=== PATIENT | male | born 1950 | race Caucasian/White ===

== ENCOUNTER 2016-11-13 13:16 | Inpatient (IN) | payer MEDICARE, OTHER ==
[~2016-11-13] VITALS: Ht 175.3 cm; Wt 83.1 kg
--- NOTE | ~2016-11-13 | CON ---
[place], [place] REPORT OF CONSULTATION [facility]: [facility] TRAN [facility] [id number] UNIT #: [id number] ROOM: 415 DOCTOR: TIAN MosquedaMINNIE BIRTHDATE: [birth year] DOS: 11/14/2016 WOUND CARE CONSULT CHIEF COMPLAINT: Bilateral leg ulcerations. HISTORY OF PRESENT ILLNESS: This is a 66-year-old male who presented to the Emergency Room Department yesterday with complaints of open leg wounds that he has had for several years now. They do heal at times, but reopen fairly quickly. He came in with complaints of having also noted to have maggots in one of the wounds. He had mentioned this to one of his friends who cleanse the wound with hydrogen peroxide prior to him coming to the ER. He had complained of increased amount of the wounds in the Emergency Room Department, some redness, some warmth and pain, especially over one of the wounds on the left ankle. The medical charts indicate that he has seen or been seen by the wound clinic at the [facility], but when I specifically asked the patient, he does not tell me of any type of wound care that has been done for these wounds. He said he will occasionally get an antibiotic by one of his doctors at the [facility], but he has never dressed the wounds or taking care of them or covered them with anything that he is aware of. The patient was admitted for these leg wounds and was admitted for cellulitis. PAST MEDICAL HISTORY: Significant for the following: Bladder tumor, diabetes mellitus, hypertension, history of MRSA, neuropathy, nonhealing and nonsurgical wound, schizophrenia, and tremor. PAST SURGICAL HISTORY: He is status post cystoscopy for bladder tumor resection; orchiectomy, unilateral; history of iliac artery stents; history of hand surgery. SOCIAL HISTORY: He denies any alcohol consumption. Denies any drug use. He is a smoker. He says he smoked for half a pack a day for several years now. ALLERGIES: No known drug allergies. FAMILY HISTORY: Significant for COPD in his father and COPD in his mother and a history of cancer in his father and mother. MEDICATIONS: The current medications that he has are as follows: Lovenox 40 subQ daily, Restoril 15 mg p.o. at bedtime p.r.n., Zofran 4 mg IV q.6h. p.r.n., morphine 2 mg IV q.4h. p.r.n., milk of mag 30 mL p.o. daily, Dulcolax 5 mg p.o. daily, [place] one tablet q.4 p.r.n., Tylenol 650 q.4 p.r.n. REVIEW OF SYSTEMS: In general, he denies any fevers or chills. Currently, he has some discomfort with the left leg wound, but the other wounds are not painful. He denies any weight loss or weight gain. He says his appetite is good. He denies any nausea or vomiting or diarrhea at the present time. He says he does not really know how his sugars are running as he has not checked it in a while. He does complain of an occasional wheeze. His other review of systems for HEENT, cardiovascular, respiratory, abdominal, [place], [place] REPORT OF CONSULTATION NAME: NORMAN TRAN UNIT #: [id number] ROOM: 415 DOCTOR: MINNIE OVERTON M.D. BIRTHDATE: [birth year] , neurologic, psychiatric, and endocrine are otherwise negative or per the patient's report at this time. PHYSICAL EXAMINATION: VITAL SIGNS: As follows: His temperature is 98.1, pulse is 71, respirations 18, blood pressure is 118/54. GENERAL: This is a male who appears older than his stated age. He has obvious tremors of his upper extremities noted. He does have somewhat of a flat affect. He is pleasant and cooperative to examination. EENT: Oropharynx is clear. Extraocular movements are intact. NECK: Supple. There is no JVD. LUNGS: Have an occasional mild expiratory wheeze bilaterally. CARDIOVASCULAR: S1, S2, regular rate and rhythm. Soft systolic murmur appreciable. ABDOMEN: Soft and nontender. EXTREMITIES: He has no calf tenderness. He has marked hyperkeratosis and scaly lesions over his lower extremities below the knees. He has some mild erythema of bilateral lower extremities, which appears chronic. In my opinion, it is not acutely warm at this time and does not appear to be acutely tender. He has several open areas, one is on the left medial ankle above the malleolus. It is measuring 3.2 x 3 x 0.1 in depth. He has some visible necrotic tissue around the periwound. It is not purulent at this time. For the right leg, he has got two lesions that are open, one is measuring 1.9 x 1 x 0.1 and the other distal one is measuring 1 x 0.9 x 0.1 in depth. There is diffuse onychomycosis. There is somewhat of an odor present to his legs. When examining them, I do not see any maggots at this time. He said the maggots were present on the left leg wound. His pedal pulses are strong and palpable. He has got good capillary refill. LABORATORY DATA: His white count from admission was 9.1, it is down to 8.8. His hemoglobin is 12.6, hematocrit is 38.1. He has increased MCV, MCH. Platelets are 178. His chem-7 shows a BUN of 10, a creatinine of 0.76, sodium of 145, potassium 3.9, chloride 108, hemoglobin A1c is 5.8. LFTs are normal. Albumin is low at 3. Vitamin D is low. He did have a wound culture done yesterday, which is pending. Blood cultures are negative so far. As there was a fair amount of necrotic tissue and a slight odor to the legs, I washed the legs with soap and water. A lot of this scaling hyperkeratotic areas just came off on their on, but I did recommend debridement for the two wounds on the right leg as well as the wound on the left leg. The patient agreed. We did go over possible risks, which include bleeding, infection, and pain. The patient did consent to debridement. The areas was cleansed. Cetacaine spray was used for topical anesthesia. A timeout was conducted prior to the start of the procedure and the first debridement was on the left lower leg wound. The tissue removed was fibrin, slough, non-necrotic tissue only. There was no bleeding. The patient tolerated the debridement well. The instruments used were curette, forceps, and scissors. Cetacaine spray was used for topical anesthesia. The entire area was debrided. The post-debridement measurements of the left leg are 4.7 x 4.8 x 0.1. For the right leg wounds, both of these wounds were debrided. The instrument used was a curette. The patient tolerated the debridement well. There was minimal bleeding that was controlled with pressure. Cetacaine spray [place], [place] REPORT OF CONSULTATION NAME: NORMAN TRAN UNIT #: [id number] ROOM: 415 DOCTOR: MINNIE OVERTON M.D. BIRTHDATE: [birth year] was used for topical anesthesia. The post-debridement measurements for the proximal wound are 1.9 x 1.6 x 0.1. So, it was a little bit wider. The post-debridement measurements for the distal wound are 1 x 1 x 0.2. There was a little bit of depth to it. This area went a little bit deeper into the subcutaneous tissue and there was some slight purulence noted with this wound. Post-debridement culture was obtained of this wound. ASSESSMENT AND PLAN: Multiple leg ulcers in a patient likely with venous insufficiency. I will go ahead and order venous and arterial Dopplers today. We will go ahead and use honey for the wounds, Versatel and 4 x 4s and Hussein and have them changed it on a daily basis. His legs need to be washed with warm soapy water everyday. This patient does have a history of iliac stent. However, he is a very poor historian when trying to elicit it if there are any symptoms of claudication, he denied those; however, he is a smoker, so we need to make sure we get arterial studies done. I think these wounds will heal with consistent wound care. Unfortunately, the patient did not appear to be taking good care of himself as far as and no care for his wounds. We were concerned that if there was a report of maggots per the patient's report, although I did not see any. I would recommend a Social Service consult and to see if what can be done to help him in his situation. He says he is able to cook for himself. He was given one dose of Zosyn. It looks like in the Emergency Room Department that has been held. Infectious Disease consult is being requested. Antibiotics are on hold in the meantime. I would recommend outpatient wound care if the patient is willing to come on a weekly basis. MINNIE OVERTON MD CM:CONSTR:REPORT OF CONSULTATION [id number] 11/15/16 0401 interface
[~2016-11-13 13:16] MED LIST: ALBUTEROL0.09 MG/A2 INH; AMLODIPINE BESYL5 MG PO; AMLODIPINE10 MG PO; AMOXICILLIN500 MG PO; ASPIRIN81 M1 PO; BENADRYL25 M1 PO; CRESTOR5 MG PO; DOXYCYCLINE100 M3 PO; ENALAPRIL10 MG PO; FISH OIL 10001000 MG PO; GABAPENTIN300 MG PO; GLIPIZIDE10 MG PO; HUMULIN N100 U/ML SC; HYDR12.5C PO; HYDROCHLOROTH12.5 M1; HYDROCODONE BIT1 T11 PO; KEFLEX500 MG PO; LEVOFLOXACIN500 MG PO; LOPID600 MG PO; METFORMIN500 MG PO; METOPROLOL SR25 MG PO; MOTRIN600 MG PO; MOTRIN800 MG PO; NOVOLIN N100 U/ML SC; OMEPRAZOLE20 MG PO; PERPHENAZINE4 MG PO; PRAVACHOL40 MG PO; PRIMATENE 12.51 TAB PO; VICODIN ES 7501 TAB PO; ZYVOX600 MG PO
[2016-11-13 13:21] VITALS: BP 144/84
[2016-11-13 14:14] LABS: BASO # 0.1 10*3/uL (0.0-0.1); BASO % 0.7 % (0.0-1.0); EOS # 0.2 10*3/uL (0.0-0.4); EOS % 2.3 % (1.0-4.0); HEMATOCRIT 39.7 % (42.0-52.0); HEMOGLOBIN 13.3 g/dl (14.0-18.0); LYMPH # 1.9 10*3/uL (1.3-4.4); LYMPH % 21.3 % (27.0-41.0); MEAN CELL VOLUME 94.5 fl (80.0-94.0); MEAN CORPUSCULAR HGB 31.7 pg (27.0-31.0); MEAN CORPUSCULAR HGB CONC 33.5 g/dl (33.0-37.0); MEAN PLATELET VOLUME 12.7 fl (9.6-12.3); MONO # 0.8 10*3/uL (0.1-1.0); MONO % 8.9 % (3.0-9.0); NEUT % 66.4 % (47.0-73.0); PLATELET COUNT AUTOMATED 172 10*3/uL (130-400); RED CELL DISTRI WIDTH 13.7 % (0-14.5); WHITE BLOOD COUNT 9.1 10*3/uL (4.8-10.8)
[2016-11-13 14:29] LABS: ALBUMIN 3.6 gm/dl (3.1-4.5); BILIRUBIN, TOTAL 0.3 mg/dl (0.2-1.0); BUN 13 mg/dl (7-24); CARBON DIOXIDE 27 mmol/L (21-32); CHLORIDE 107 mmol/L (98-107); EST GLOM FILT AFRICAN AMERICAN > 60 ml/min; GLUCOSE 134 mg/dL (65-99); SGOT/AST 22 IU/L (3-35); SGPT/ALT 17 U/L (12-78); SODIUM 143 mmol/L (136-145); TOTAL PROTEIN 8.3 gm/dL (6.4-8.2)
[2016-11-13 14:30] LABS: ALKALINE PHOSPHATASE 142 U/L (45-117)
[2016-11-13 15:07] VITALS: BP 126/76
[2016-11-13 17:00] VITALS: BP 123/69
[2016-11-13 17:09] LABS: BILIRUBIN NEGATIVE (NEGATIVE); BLOOD NEGATIVE (NEGATIVE); CLARITY SL CLOUDY (CLEAR); COLOR YELLOW (YELLOW); GLUCOSE NEGATIVE (NEGATIVE); KETONE NEGATIVE (NEGATIVE); LEUKO ESTERASE TRACE (NEGATIVE); NITRITE NEGATIVE (NEGATIVE); PROTEIN TRACE (NEGATIVE); UROBILINOGEN 0.2 E.U./dl (0.2-1.0)
[2016-11-13 17:40] LABS: RBC 0-2 rbc/hpf (0-2); URINE REFLEX COMMENT YES (NO)
[2016-11-13 20:00] VITALS: BP 117/58
[2016-11-14] VITALS: BP 129/60
[2016-11-14 06:24] LABS: BASO % 0.5 % (0.0-1.0); EOS # 0.2 10*3/uL (0.0-0.4); EOS % 2.7 % (1.0-4.0); HEMATOCRIT 38.1 % (42.0-52.0); HEMOGLOBIN 12.6 g/dl (14.0-18.0); LYMPH # 2.3 10*3/uL (1.3-4.4); LYMPH % 25.7 % (27.0-41.0); MEAN CELL VOLUME 95.7 fl (80.0-94.0); MEAN CORPUSCULAR HGB 31.7 pg (27.0-31.0); MEAN CORPUSCULAR HGB CONC 33.1 g/dl (33.0-37.0); MEAN PLATELET VOLUME 12.6 fl (9.6-12.3); MONO % 10.7 % (3.0-9.0); NEUT # 5.3 10*3/uL (2.3-7.9); NEUT % 60.1 % (47.0-73.0); PLATELET COUNT AUTOMATED 178 10*3/uL (130-400); RED BLOOD COUNT 3.98 10*6/uL (4.50-5.90); RED CELL DISTRI WIDTH 13.9 % (0-14.5); WHITE BLOOD COUNT 8.8 10*3/uL (4.8-10.8)
[2016-11-14 06:56] LABS: PROTHROMBIN TIME 10.7 SECONDS (9.0-12.4)
[2016-11-14 07:07] LABS: BUN 10 mg/dl (7-24); CARBON DIOXIDE 27 mmol/L (21-32); CHLORIDE 108 mmol/L (98-107); EST GLOM FILT AFRICAN AMERICAN > 60 ml/min; GLUCOSE 85 mg/dL (65-99); MAGNESIUM 2.2 mg/dL (1.5-2.1); POTASSIUM 3.9 mmol/L (3.5-5.1); SGOT/AST 15 IU/L (3-35); SGPT/ALT 14 U/L (12-78); SODIUM 145 mmol/L (136-145)
[2016-11-14 07:10] LABS: ALKALINE PHOSPHATASE 85 U/L (45-117); BILIRUBIN, TOTAL 0.4 mg/dl (0.2-1.0); CHOLESTEROL 148 mg/dL (<200); HDL CHOLESTEROL 37 mg/dl (40-60); LDL CHOLESTEROL 84 mg/dL (9-159); PHOSPHOROUS 3.4 mg/dL (2.5-4.9); TOTAL PROTEIN 6.9 gm/dL (6.4-8.2); TRIGLYCERIDES 136 mg/dl (<150); VLDL CHOLESTEROL 27 mg/dL (6-40)
[2016-11-14 07:26] LABS: HEMOGLOBIN A1c 5.8 % (4.8-5.6)
[2016-11-14 08:00] VITALS: BP 118/54
[2016-11-14 09:16] LABS: FOLIC ACID 11.01 ng/mL (>5.38); VITAMIN D, 25-HYDROXY 16.3 ng/mL (30-100)
[2016-11-14 12:00] VITALS: BP 123/61
[2016-11-14 16:00] VITALS: BP 133/73
[2016-11-14] MEDS ORDERED: DEPAKOTE ER500 MG PO (16:58)
[2016-11-14] MEDS ORDERED: LATANOPROST 2.2.5 ML OP (16:59)
[2016-11-14] MEDS ORDERED: ATORVASTATIN CA20 M1 PO (17:01)
[2016-11-14] MEDS ORDERED: ARIPIPRAZOLE30 MG PO (17:03)
[2016-11-14] MEDS ORDERED: PROPRANOLOL HCL20 M1 PO (17:06)
[2016-11-14] MEDS ORDERED: Aquaphor T (17:41)
[2016-11-14] MEDS ORDERED: ATHLETE'S FOOT15 GM T (17:41)
[2016-11-14] MEDS ORDERED: LAMISIL250 MG PO (17:41)
[2016-11-14] MEDS ORDERED: VITAMIN D5000 UNI1 PO (17:44)
== END 2016-11-14 19:28 | disposition home or self-care (01) | DRG 623 ==
LOC: ED 13:16 → EDHOLD 14:57 → 4E 14:57
PROVIDERS: Internal Medicine; Nurse Practitioner Family
PROC: 0HBKXZZ Excision of Right Lower Leg Skin, External Approach (ICD-10-PCS; principal; 2016-11-14)
PROC: 0HBLXZZ Excision of Left Lower Leg Skin, External Approach (ICD-10-PCS; principal; 2016-11-14)
DX: E11.622 Type 2 diabetes mellitus with other skin ulcer (principal); L97.219 Non-pressure chronic ulcer of right calf with unspecified severity; L97.229 Non-pressure chronic ulcer of left calf with unspecified severity; E11.40 Type 2 diabetes mellitus with diabetic neuropathy, unspecified; D53.9 Nutritional anemia, unspecified; I10 Essential (primary) hypertension; B35.1 Tinea unguium; F20.9 Schizophrenia, unspecified; R25.1 Tremor, unspecified; I87.8 Other specified disorders of veins; F17.210 Nicotine dependence, cigarettes, uncomplicated; I87.2 Venous insufficiency (chronic) (peripheral); B35.3 Tinea pedis; E55.9 Vitamin D deficiency, unspecified; Z71.6 Tobacco abuse counseling; Z86.14 Personal history of Methicillin resistant Staphylococcus aureus infection; Z83.6 Family history of other diseases of the respiratory system; Z80.9 Family history of malignant neoplasm, unspecified; Z79.82 Long term (current) use of aspirin; Z79.4 Long term (current) use of insulin; Z79.84 Long term (current) use of oral hypoglycemic drugs; Z79.899 Other long term (current) drug therapy

== ENCOUNTER → 2016-12-22 | Outpatient (CLI) | payer MEDICARE, OTHER ==
[~2016-12-22] MED LIST changes: +ARIPIPRAZOLE30 MG PO; +ATHLETE'S FOOT15 GM T; +ATORVASTATIN CA20 M1 PO; +Aquaphor T; +DEPAKOTE ER500 MG PO; +LAMISIL250 MG PO; +LATANOPROST 2.2.5 ML OP; +PROPRANOLOL HCL20 M1 PO; +VITAMIN D5000 UNI1 PO
--- NOTE | ~2016-12-22 | WRIGHTHP ---
[place], [place] PATIENT HISTORY AND PHYSICAL EXAM NAME: NORMAN TRAN [facility] #: [id number] UNIT #: [id number] ROOM: DOCTOR: MINNIE OVERTON M.D. BIRTHDATE: [birth year] DOS: 12/22/2016 ADDENDUM Back in November I wanted to add the recent lab work that was done for this patient back in November showed shows a white count of 8, a hemoglobin of 12.6, hematocrit of 38.1 and platelets of 178. His BUN was 10, creatinine was 0.7 and potassium 3.6. His glucose was 85. His hemoglobin A1c was 5.8. LFTs were normal. His albumin was slightly low at 3. Cholesterol was 148. He had venous studies, which were negative and arterial studies, which shows no significant inflow or femoral disease, mild diffuse atherosclerotic distal disease on the left, but occlusive disease. So, I want to add that data in. MINNIE OVERTON MD CM:HISPHYS:PATIENT HISTORY AND PHYSICAL EXAMINATION [id number] MINNIE OVERTON M.D. 12/23/16 1006 interface
--- NOTE | ~2016-12-22 | WRIGHTHP ---
[place], [place] PATIENT HISTORY AND PHYSICAL EXAM NAME: NORMAN TRAN [facility] #: [id number] UNIT #: [id number] ROOM: DOCTOR: MINNIE OVERTON M.D. BIRTHDATE: [birth year] DOS: 12/22/2016 This is a new wound care evaluation, although I have seen the patient before on the floor as in consultation. CHIEF COMPLAINT: Bilateral chronic leg ulcerations. HISTORY OF PRESENT ILLNESS: This is a 66-year-old male who was referred to us by the [facility] for wound care. He has a history of chronic leg wounds that apparently he has had for quite some time and he has told me years now, that have healed, but then quickly reopened. He has had problems with maggot infestation as well and was admitted to the hospital back in November for this above problem and cellulitis as well during that time. He did have an Unna boot placed by [facility], they did that for a week and apparently according to the patient, it was much improved. However, he still has some open ulcers and [facility] for further care. PAST MEDICAL HISTORY: Significant for the following; bladder tumor, diabetes mellitus, hypertension, history of MRSA infection, neuropathy, nonhealing and nonsurgical wounds, schizophrenia and chronic tremor. He also has a history of hyperlipidemia, COPD, history of AAA as well as history of cellulitis. He also has a history of multiple pulmonary nodules, chronic obstructive lung disease, drug induced tremor, cellulitis of the hand, cellulitis and abscess of the leg. PAST SURGICAL HISTORY: He is status post cystectomy for bladder tumor resection; orchiectomy, unilateral, history of iliac artery stents; and history of hand surgery. SOCIAL HISTORY: He denies alcohol consumption. Denies drug use. He is a smoker and continues to smoke. He tried to quit in the past, but it did not work. He smokes half a pack per day now for several years. Does not wish to try to quit smoking. ALLERGIES: No known drug allergies. FAMILY HISTORY: Significant for COPD in his father, COPD in his mother and a history of cancer in the family in his mother and father. MEDICATIONS: Depakote 500 mg daily at bedtime, diphenhydramine 25 mg p.r.n., metformin 500 daily, enalapril 10 mg p.o. b.i.d., aripiprazole 30 mg daily, albuterol inhalation 90 mcg daily, amlodipine 10 mg daily, budesonide inhalation 2 puffs by mouth b.i.d. REVIEW OF SYSTEMS: As follows: He denies any fevers or chills. He does admit to some shortness of breath on exertion. It has not changed in anyway. He has a history of cramping in his legs at times, it is not new. He gets rare chest pain that he describes as sharp and he had an episode last night that lasted for about an hour with no radiation and he feels that it was related to indigestion. He gets acid reflux. Currently, he has no nausea or vomiting. He denies any [place], [place] PATIENT HISTORY AND PHYSICAL EXAM NAME: NORMAN TRAN UNIT #: [id number] ROOM: DOCTOR: MINNIE OVERTON M.D. BIRTHDATE: [birth year] shortness of breath at the present time, does get occasional wheezing. He says he is eating well, but he was brought in by his housemate who helps him and has come in with him today and she says that he does not eat well. He does not eat 3 meals a day and eats a lot sugar. He has a sweet tooth. He does not check his sugar. The patient states his strips are not working and his readings are not clear, so he does not know what his sugar is or has been running. He said when he had this episode of chest pain yesterday, he did not inform anyone and it eventually resolved. He has no specific complaints regarding his wounds at the present time. He does state that the Unna boot seem to have really have helped. He still has a lot of dry skin, but it is definitely better than it was the last time I saw him back in November. PHYSICAL EXAMINATION: VITAL SIGNS: Stable. Temperature is 98.1, pulse of 64, respirations 18, blood pressure is 130/66. GENERAL: This is a male who appears older than his stated age, slightly disheveled, poor hygiene, in no acute distress. He is pleasant and cooperative to examination, there is an obvious tremor noted. HEENT: Extraocular movements are intact. Sclerae are anicteric. Oropharynx is clear. NECK: There is no JVD. LUNGS: Have occasional rhonchi and some mild wheezing, but good inspiratory and expiratory effort. CARDIOVASCULAR: S1, S2, regular rate and rhythm. I do not appreciate a murmur. ABDOMEN: Soft and nontender. EXTREMITIES: He has edema bilaterally. There is chronic erythema. There is no calf tenderness. His pulses are palpable. He has severe onychomycosis. He has some maceration noted at the bottom in the area between his toes. He has large amounts of hyperkeratosis on his legs. He has good peripheral pulses. His toes are warm. His pulses are strong and capillary refill is normal. His EUNICE is 1.26 on the left and 1.25 on the right. For his foot assessment, he has positive sensation. There are very few areas where it is negative, but most of it seems to be positive. So, he has several open areas that are being measured, 6 different ones. Wound #1, is located on the proximal right lower leg, it is measuring 1.2 x 0.5 x 0.1. Wound #2 is measuring 1.5 x 2 x 0.1. Wound #3 is very small at 0.5 x 0.5 x 0.1. Wound #4 is measuring 0.5 x 0.5 x 0.1 and those on the left leg wound. Wound #5 is measuring 0.5 x 0.3 x 0.1 and that is on the left lower leg. Wound #6 is 0.6 x 1 x 0.1 and that is on the right anterior leg. Several of these wounds are in various stages of healing. There are two wounds on the right lower extremity that have some necrotic tissue and those were debrided selectively only. The tissue removed was just fibrin and slough and dried hyperkeratosis. The instrument used was a curette, forceps, and scissors, this was wound #1, and the post-debridement measurements are 0.7 x 0.6 x 0.1. Then, the wound on the right medial lower leg was debrided as well and the post-debridement measurements are unchanged. Wound #4, which is on the left proximal lateral lower leg was debrided and post-debridement measurements are 0.5 x 0.8 x 0.1, though these were selectively debrided as well and wound #6 was debrided, the right anterior lower leg wound. Post-debridement measurement was 0.6 x 1 x 0.1. [place], [place] PATIENT HISTORY AND PHYSICAL EXAM NAME: NORMAN TRAN [facility] #: [id number] UNIT #: [id number] ROOM: DOCTOR: MINNIE OVERTON M.D. BIRTHDATE: [birth year] ASSESSMENT AND PLAN: Chronic venous leg ulcerations complicated by diabetes. I did see a hemoglobin A1c being listed around 6. He apparently also was on a recent steroid taper I believe for, it is not clear to me the reasoning, however, there were reports of wheezing at the clinic, so he apparently had recently been on steroids as well and that also will affect wound healing. He has poorly controlled edema, but did respond well to Unna boots according to the patient. It looks like he was also given a script for Keflex 500 four times a day for 10 days, although currently the legs do not appear acutely cellulitic, no sign of an acute infection, so we will go ahead and use collagen for now and we will apply the Unna boots and have him follow back up in one week. He also has evidence of tinea pedis and I would like him to use Lotrimin powder to the area in between the toes. His vascular status appears to be adequate at this point, he has got good ABIs and his pulses are strong. He also does smoke, which will also contribute to poor wound healing. He will need compression stockings. So next week, hopefully, we can measure his legs. I think he will respond quickly to the compression. He unfortunately does not check his sugars. He said there is something wrong with his meter. [facility], to either contact the [facility] to see if he can get another one or have somebody help him to show him how to use it or he can go to the pharmacy that he purchased the instrument from and to have somebody help him go over it to see why it is malfunctioning. He should take his blood sugar and check it to see where he is at. I did discuss with him about his chest pain that if he gets it again, he should go to the Emergency Room for an evaluation as he has risk factors for coronary disease that include diabetes and smoking, hyperlipidemia and hypertension, so this was explained to the patient. Followup in 1 week. MINNIE OVERTON MD CM:HISPHYS:PATIENT HISTORY AND PHYSICAL EXAMINATION [id number] MINNIE OVERTON M.D. 12/22/16 1715 interface
== END ==
LOC: WOUNDCARE 01:59
DX: I87.333 Chronic venous hypertension (idiopathic) with ulcer and inflammation of bilateral lower extremity (principal); E11.622 Type 2 diabetes mellitus with other skin ulcer; L97.811 Non-pressure chronic ulcer of other part of right lower leg limited to breakdown of skin; L97.821 Non-pressure chronic ulcer of other part of left lower leg limited to breakdown of skin; E11.40 Type 2 diabetes mellitus with diabetic neuropathy, unspecified; E78.5 Hyperlipidemia, unspecified; J44.9 Chronic obstructive pulmonary disease, unspecified; F17.210 Nicotine dependence, cigarettes, uncomplicated; Z86.14 Personal history of Methicillin resistant Staphylococcus aureus infection

== ENCOUNTER → 2016-12-29 | Outpatient (CLI) | payer MEDICARE, OTHER ==
--- NOTE | ~2016-12-29 | PR ---
[place], [place] PROGRESS NOTE NAME: NORMAN TRAN [facility] #: [id number] UNIT #: [id number] ROOM: DOCTOR: TIAN MosquedaMINNIE BIRTHDATE: [birth year] DOS: 12/29/2016 WOUND CARE FOLLOWUP NOTE CHIEF COMPLAINT: Bilateral chronic leg ulcerations. HISTORY OF PRESENT ILLNESS: This is a 66-year-old male who was referred to us by the [facility] for wound care. He had evidence of chronic venous stasis ulcerations that were multiple and complicated by diabetes. We had used Unna boots on him last week and he comes in for a followup. He had the Unna boots kept on for the entire week. He was noted to have evidence of tinea pedis on the bottom of his toes and in between his toes and was asked to use an antifungal powder, prescription was given for him for that; however, he states that he could not afford his medication, did not have any money to get the prescription and did not use it. Otherwise, he has no specific complaints. He tolerated the Unna boots very well, but did not have enough money to get the antifungal powder that was recommended. PHYSICAL EXAMINATION: He is afebrile, pulse of 76, respirations 18, temperature is 98.9, blood pressure is 120/76. Essentially, all the wounds on the right lower leg have some scabs over them. They are measuring 0.1 x 0.1 x 0.1 that is wound #1, 2 and 3. On the left lower leg, there is wound #4, 5 and 6 that are also measuring 0.1 x 0.1 x 0.1 and those were all debrided of devitalized tissue of this hyperkeratotic scabbed area and they all appeared to be maintained to be healed underneath them. Those were debrided selectively with forceps and scissors. There was no bleeding and the patient tolerated debridement well and all the wounds appear to be healed underneath his devitalized tissue. He does have one very small wound that is still open and that is on the proximal left leg, it is very small, approximately 0.2 x 0.2 x 0.1 and is very superficial and no sign of infection, it is clean. The edema is much better controlled and there is no obvious cellulitis; however, bottom of his feet is macerated, peeling, malodorous with maceration at the bottom of all his toes on left and right foot. There is no sign of cellulitis and it is not tender or painful. SOCIAL HISTORY: He continues to smoke and was brought in by his sister who drove him here, but he says he is able to drive. ASSESSMENT AND PLAN: His venous leg ulcerations, they are all healed. ____ one small wound that we can use Puracol for it and cover it with a dry gauze. He can change it every other day. He can use Tubigrip for edema control. He is supposed to get compression stockings through the [facility]; however, he does have severe tinea pedis. I explained to him that it really needs to be managed in taking care of. I would also ask him to wash with Hibiclens soap to see if we can decrease the bioburden in the area and ____ soap can be utilized also for antifungal purposes and he can also use the antifungal powder at least twice a day. I would like the patient to follow up with us next week or the [facility], whichever he is able to. If he can get appointment next week at the [facility], he can follow up with them. Otherwise, he should follow back up in our Wound Clinic. [place], [place] PROGRESS NOTE NAME: NORMAN TRAN UNIT #: [id number] ROOM: DOCTOR: MINNIE OVERTON M.D. BIRTHDATE: [birth year] MINNIE OVERTON MD CM:PNTRANS [id number] MINNIE OVERTON M.D. 12/29/16 1449 interface
== END ==
LOC: WOUNDCARE 02:25
DX: I87.2 Venous insufficiency (chronic) (peripheral) (principal); E11.622 Type 2 diabetes mellitus with other skin ulcer; L97.821 Non-pressure chronic ulcer of other part of left lower leg limited to breakdown of skin; L97.811 Non-pressure chronic ulcer of other part of right lower leg limited to breakdown of skin; B35.3 Tinea pedis; I48.91 Unspecified atrial fibrillation; F17.200 Nicotine dependence, unspecified, uncomplicated

== ENCOUNTER 2017-06-11 13:08 | Emergency (ER) | payer MEDICARE, OTHER ==
[~2017-06-11] VITALS: Wt 90.3 kg
[2017-06-11 13:32] LABS: BASO # 0.1 10*3/uL (0.0-0.1); BASO % 0.7 % (0.0-1.0); EOS # 0.2 10*3/uL (0.0-0.4); EOS % 1.2 % (1.0-4.0); HEMATOCRIT 45.1 % (42.0-52.0); HEMOGLOBIN 14.9 g/dl (14.0-18.0); LYMPH # 2.5 10*3/uL (1.3-4.4); LYMPH % 17.1 % (27.0-41.0); MEAN CELL VOLUME 95.8 fl (80.0-94.0); MEAN CORPUSCULAR HGB 31.6 pg (27.0-31.0); MEAN PLATELET VOLUME 11.6 fl (9.6-12.3); MONO # 0.9 10*3/uL (0.1-1.0); MONO % 6.5 % (3.0-9.0); NEUT # 10.7 10*3/uL (2.3-7.9); NEUT % 73.9 % (47.0-73.0); PLATELET COUNT AUTOMATED 213 10*3/uL (130-400); RED BLOOD COUNT 4.71 10*6/uL (4.50-5.90); RED CELL DISTRI WIDTH 13.5 % (0-14.5); WHITE BLOOD COUNT 14.4 10*3/uL (4.8-10.8)
[2017-06-11 14:05] LABS: ALKALINE PHOSPHATASE 129 U/L (45-117); BUN 12 mg/dl (7-24); CHLORIDE 102 mmol/L (98-107); CREATININE 0.81 mg/dL (0.70-1.30); POTASSIUM 3.8 mmol/L (3.5-5.1); SGOT/AST 24 IU/L (3-35); SGPT/ALT 28 U/L (12-78); SODIUM 139 mmol/L (136-145); TOTAL PROTEIN 8.4 gm/dL (6.4-8.2)
[2017-06-11 15:08] VITALS: BP 147/79
[2017-06-11] MEDS ORDERED: KEFLEX500 M1 PO (16:30)
== END 2017-06-11 16:50 | disposition home or self-care (01) ==
LOC: ED 13:08
PROVIDERS: Emergency Medicine
DX: L03.116 Cellulitis of left lower limb (principal); L03.115 Cellulitis of right lower limb; I10 Essential (primary) hypertension; F20.9 Schizophrenia, unspecified; E11.40 Type 2 diabetes mellitus with diabetic neuropathy, unspecified; F10.10 Alcohol abuse, uncomplicated; Z79.84 Long term (current) use of oral hypoglycemic drugs; Z79.82 Long term (current) use of aspirin; Z79.899 Other long term (current) drug therapy

== ENCOUNTER 2017-08-25 22:41 | Emergency (ER) | payer OTHER, MEDICARE ==
[~2017-08-25] VITALS: Ht 182.8 cm; Wt 108.9 kg
[~2017-08-25 22:41] MED LIST changes: +KEFLEX500 M1 PO
[2017-08-25 23:09] VITALS: BP 143/61
[2017-08-25 23:20] LABS: BASO # 0.1 10*3/uL (0.0-0.1); BASO % 0.5 % (0.0-1.0); EOS # 0.3 10*3/uL (0.0-0.4); EOS % 2.4 % (1.0-4.0); HEMATOCRIT 37.1 % (42.0-52.0); HEMOGLOBIN 12.6 g/dl (14.0-18.0); LYMPH # 1.8 10*3/uL (1.3-4.4); LYMPH % 16.4 % (27.0-41.0); MEAN CELL VOLUME 94.2 fl (80.0-94.0); MONO # 0.9 10*3/uL (0.1-1.0); NEUT # 7.8 10*3/uL (2.3-7.9); NEUT % 72.1 % (47.0-73.0); PLATELET COUNT AUTOMATED 190 10*3/uL (130-400); RED BLOOD COUNT 3.94 10*6/uL (4.50-5.90); RED CELL DISTRI WIDTH 13.8 % (0-14.5); WHITE BLOOD COUNT 10.8 10*3/uL (4.8-10.8)
[2017-08-25 23:27] LABS: ACT PARTIAL THROMBO TIME 28.1 SECONDS (20.8-31.5)
[2017-08-25 23:44] LABS: ALBUMIN 3.1 gm/dl (3.1-4.5); ALKALINE PHOSPHATASE 122 U/L (45-117); BUN 13 mg/dl (7-24); CHLORIDE 109 mmol/L (98-107); CREATININE 0.95 mg/dL (0.70-1.30); SGOT/AST 17 IU/L (3-35); SGPT/ALT 17 U/L (12-78); SODIUM 144 mmol/L (136-145); TOTAL PROTEIN 7.1 gm/dL (6.4-8.2)
[2017-08-25 23:45] LABS: TROPONIN I < 0.015 ng/ml (<0.045)
[2017-08-25 23:52] LABS: BILIRUBIN NEGATIVE (NEGATIVE); BLOOD NEGATIVE (NEGATIVE); CLARITY SL CLOUDY (CLEAR); COLOR YELLOW (YELLOW); GLUCOSE NEGATIVE (NEGATIVE); KETONE TRACE (NEGATIVE); LEUKO ESTERASE NEGATIVE (NEGATIVE); NITRITE NEGATIVE (NEGATIVE); PH 6.5 (5.0-9.0); SPECIFIC GRAVITY 1.025 (1.005-1.030)
== END 2017-08-26 01:08 | disposition left against medical advice (07) ==
LOC: ED 22:41
PROVIDERS: Student in an Organized Health Care Education/Training Program
DX: S01.81XA Laceration without foreign body of other part of head, initial encounter (principal); S81.812A Laceration without foreign body, left lower leg, initial encounter; S81.811A Laceration without foreign body, right lower leg, initial encounter; S30.1XXA Contusion of abdominal wall, initial encounter; I71.4 Abdominal aortic aneurysm, without rupture; F17.200 Nicotine dependence, unspecified, uncomplicated; E11.622 Type 2 diabetes mellitus with other skin ulcer; L97.209 Non-pressure chronic ulcer of unspecified calf with unspecified severity; I10 Essential (primary) hypertension; G62.9 Polyneuropathy, unspecified; Z98.890 Other specified postprocedural states; Z90.89 Acquired absence of other organs; Z79.82 Long term (current) use of aspirin; Z79.899 Other long term (current) drug therapy; V49.88XA Car occupant (driver) (passenger) injured in other specified transport accidents, initial encounter; Y93.89 Activity, other specified; Y92.413 State road as the place of occurrence of the external cause; Y99.9 Unspecified external cause status

== ENCOUNTER 2017-12-24 11:46 | Inpatient (IN) | payer MEDICARE, OTHER ==
[~2017-12-24] VITALS: Ht 175.2 cm; Wt 90.0 kg
--- NOTE | ~2017-12-24 | PR ---
[place], [place] PROGRESS NOTE NAME: NORMAN TRAN UNIT #: [id number] ROOM: 401 DOCTOR: MARYCARMEN DAO,BRENDA BIRTHDATE: [birth year] DOS: 01/18/2018 I had a [id number] encounter with the patient and agree with the assessment and plan of the nurse practitioner, Altagracia Bradley and made the necessary changes. Lynda Conroy MD CM:PNTRANS [id number] [id number] BRENDA CONROY MD 01/19/18 0242 interface
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
--- NOTE | ~2017-12-24 | PR ---
[place], [place] PROGRESS NOTE NAME: NORMAN TRAN UNIT #: [id number] ROOM: 401 DOCTOR: MARYCARMEN DAO,BRENDA BIRTHDATE: [birth year] DOS: 12/26/2017 I had a [id number]-my-ebxm encounter with the patient and agree with the assessment and plan made by Altagracia Bradley, nurse practitioner and made the necessary changes in the report note. Lynda Conroy MD CM:PNTRANS [id number] BRENDA CONROY MD 01/25/18 1124 MEGHANA [email or web address].TM
--- NOTE | ~2017-12-24 | CON ---
[place], [place] REPORT OF CONSULTATION [id number] UNIT #: [id number] ROOM: 401 DOCTOR: DEBORA ELLIS DPM BIRTHDATE: [birth year] DOS: 12/28/2017 SUBJECTIVE: This patient is seen as consulted for diabetic foot care, care of elongated painful nails on both feet. The patient was admitted with cellulitis in both lower extremities. Dr. Galindo is taking care of him as he has been in the wound care center before. He states he has had chronic problems with his legs with swelling and dry skin. He denies any history of surgery on either foot. He has been diabetic for more than 10 years. PAST MEDICAL HISTORY: Includes a history of AAA, bilateral lower extremity cellulitis, diabetes mellitus, history of wounds on his legs, hypertension, macrocytic anemia, MRSA, neuropathy, schizophrenia, tobacco abuse, venous insufficiency. ALLERGIES: No known drug allergies. CURRENT MEDICATIONS: Include Lamisil cream, metformin, Kefzol, Glucotrol, Seroquel, Lipitor, vitamin D, Lopressor, hydrochlorothiazide, Lovenox, Vasotec, Cogentin, Abilify, Norvasc, Dulera, Neurontin, Inderal, Protonix, Humalog. PHYSICAL EXAMINATION: Upon lower extremity physical examination, DP pedal pulse is palpable. PT pedal pulses barely palpable. Chronic pigment changes are seen bilaterally with dependent edema. Small superficial open areas noted on both lower legs with some mild erythema and increased temperature. No signs of fluctuance or signs of abscess. He does have dry skin on the bottom of both feet but there are essentially no foot ulcerations. Mildly contracted digits are seen bilaterally. Nails 1 through 5 bilaterally are thick, elongated, brittle, dystrophic with subungual debris present. Hyperkeratotic lesion seen at the distal tip at the distal portion of the second toe on the right foot with no open wound. ASSESSMENT: Diabetes mellitus, chronic venous insufficiency with recent cellulitis, onychomycosis 1 through 5 bilaterally, peripheral arterial disease. PLAN: Consult is performed. Manual debridement of mycotic nails 1 through 5 bilaterally in length and thickness to the level of the nail bed to reduce hazards such as infection. Dr. Galindo is taking care of his legs and the wounds on his legs. Continue with proper diabetic foot care. I will see the patient back in 9 weeks for continued diabetic foot care or sooner if there is a problem. Thank you for the opportunity to take part in care of this patient. [place], [place] REPORT OF CONSULTATION NAME: ROBYNTOMNORMAN B UNIT #: [id number] ROOM: [facility] DOCTOR: DEBORA ELLIS DPM BIRTHDATE: [birth year] DEBORA ELLIS DPM CM:CONSTR:REPORT OF CONSULTATION 1201 12/29/17 0841 interface
--- NOTE | ~2017-12-24 | PR ---
[place], [place] PROGRESS NOTE NAME: NORMAN TRAN UNIT #: [id number] ROOM: 401 DOCTOR: MARYCARMEN DAO,BRENDA BIRTHDATE: [birth year] DOS: Attestation note to the progress note done on 12/24/2017. I had the [id number] encounter and agree with the assessment plan of the resident and made the necessary changes in the report note. Lynda Conroy MD CM:PNTRANS [id number] BRENDA CONROY MD 01/25/18 1125 MEGHANA ESTRADA [facility].TM
--- NOTE | ~2017-12-24 | PR ---
[place], [place] PROGRESS NOTE NAME: NORMAN TRAN UNIT #: [id number] ROOM: 401 DOCTOR: RALF MESA,OCTOBER BIRTHDATE: [birth year] DOS: SUBJECTIVE: The patient is a 67-year-old male being followed for bilateral lower extremity cellulitis. His MRSA screen is negative. Blood cultures are sterile. He is alert and oriented, states he feels that the erythema and discomfort of his lower extremities is a little better. Vancomycin trough today is 15.4. He has had no fevers. Denies any nausea, vomiting or diarrhea. No rash or itch. No cough or shortness of breath. LABORATORY DATA: No new labs today. Cultures as reviewed above. PHYSICAL EXAMINATION: VITAL SIGNS: Temperature 97.8, pulse 86, respirations 18, BP 138/64. GENERAL: A 67-year-old male in no acute distress. HEENT: Normocephalic, no thrush. LUNGS: Clear to auscultation bilaterally. Respirations even and unlabored. HEART: Regular rhythm. No murmur appreciated. ABDOMEN: Soft, nondistended. EXTREMITIES: With chronic edema and signs of venous stasis and hyperkeratotic changes of the skin bilateral lower extremities with erythema that extends to his knees, also appears to have fungal infection between the toes and has toenails that are up to an inch and a half to 2 inches long and few dried scabs but otherwise no open wounds. PLAN: Continue Ancef. Start Lamisil to bilateral feet between the toes. Consult Podiatry for nail care. He will probably benefit from urea cream to help her with the hyperkeratotic areas. Unna boots are planned in the future per Dr. Galindo. Case discussed with Dr. Holbrook. DOMENICO ARAMBULA CNP Lynda Holbrook MD CM:PNTRANS [phone] OCTOBER RALF MESA 12/27/17 1504 interface
--- NOTE | ~2017-12-24 | CON ---
[place], [place] REPORT OF CONSULTATION NAME: NORMAN TRAN UNIT #: [id number] ROOM: 401 [facility] B[facility]: [birth year] DOS: 12/26/2017 I had a [id number] encounter with the patient and agree with the assessment and plan made by Altagracia Bradley, nurse practitioner and made the necessary changes in the report note. Lynda Holbrook MD CM:CONSTR:REPORT OF CONSULTATION 1643 01/25/18 1119 interface
[2017-12-24 11:46] VITALS: BP 142/75
[~2017-12-24 11:46] MED LIST changes: +GLUCOPHAGE500 M1 PO; -METFORMIN500 MG PO
[2017-12-24 12:05] LABS: BASO # 0.1 10*3/uL (0.0-0.1); BASO % 0.6 % (0.0-1.0); EOS # 0.4 10*3/uL (0.0-0.4); EOS % 3.4 % (1.0-4.0); HEMATOCRIT 43.3 % (42.0-52.0); HEMOGLOBIN 14.2 g/dl (14.0-18.0); LYMPH # 2.3 10*3/uL (1.3-4.4); LYMPH % 22.5 % (27.0-41.0); MEAN CORPUSCULAR HGB 31.1 pg (27.0-31.0); MEAN CORPUSCULAR HGB CONC 32.8 g/dl (33.0-37.0); MEAN PLATELET VOLUME 12.1 fl (9.6-12.3); MONO # 0.8 10*3/uL (0.1-1.0); MONO % 8.3 % (3.0-9.0); NEUT # 6.6 10*3/uL (2.3-7.9); NEUT % 64.7 % (47.0-73.0); PLATELET COUNT AUTOMATED 202 10*3/uL (130-400); RED BLOOD COUNT 4.56 10*6/uL (4.50-5.90); RED CELL DISTRI WIDTH 13.7 % (0-14.5); WHITE BLOOD COUNT 10.2 10*3/uL (4.8-10.8)
[2017-12-24 12:14] LABS: ACT PARTIAL THROMBO TIME 28.6 SECONDS (20.8-31.5)
[2017-12-24 12:22] LABS: ALBUMIN 3.3 gm/dl (3.1-4.5); ALKALINE PHOSPHATASE 129 U/L (45-117); BUN 7 mg/dl (7-24); CHLORIDE 109 mmol/L (98-107); CREATININE 0.92 mg/dL (0.70-1.30); LIPASE 65 U/L (73-393); POTASSIUM 4.1 mmol/L (3.5-5.1); SGOT/AST 18 IU/L (3-35); SGPT/ALT 26 U/L (12-78); SODIUM 142 mmol/L (136-145); TOTAL PROTEIN 7.6 gm/dL (6.4-8.2)
[2017-12-24 12:25] LABS: TROPONIN I < 0.015 ng/ml (<0.045); VALPROIC ACID (DEPAKENE) < 3.0 ug/ml (50-100)
[2017-12-24 13:21] VITALS: BP 123/90
[2017-12-24] MEDS ORDERED: GLIPIZIDE10 M2 PO (14:07)
[2017-12-24] MEDS ORDERED: HYDROCHLOROTH12.5 M2 PO (14:08)
[2017-12-24] MEDS ORDERED: NEURONTIN300 MG PO (14:09)
[2017-12-24] MEDS ORDERED: CRESTOR5 MG PO (14:12)
[2017-12-24] MEDS ORDERED: OMEPRAZOLE MAGN20 MG PO (14:14)
[2017-12-24] MEDS ORDERED: LOPRESSOR25 MG PO (14:15)
[2017-12-24] MEDS ORDERED: Bactroban Oint22 GM T (14:17)
[2017-12-24 14:26] VITALS: BP 128/68
[2017-12-24] MEDS ORDERED: NORVASC5 MG PO (15:51)
[2017-12-24] MEDS ORDERED: BENZTROPINE ME0.5 MG PO (15:52)
[2017-12-24] MEDS ORDERED: FISH OIL CONC1000 M2 PO (15:54)
[2017-12-24] MEDS ORDERED: HUMULIN 70100 UNIT/1 SQ ×2 (15:56)
[2017-12-24 16:00] VITALS: BP 142/74
[2017-12-24] MEDS ORDERED: SYMB160 INH (16:01)
[2017-12-24] MEDS ORDERED: PROVENTIL HFA6.7 GM INH (16:02)
[2017-12-24] MEDS ORDERED: VITAMIN C500 M8 PO (16:03)
[2017-12-24] MEDS ORDERED: MULTIVITAMINS1 EAC5 PO (16:03)
[2017-12-24] MEDS ORDERED: QUETIAPINE FUM200 M3 PO (16:04)
[2017-12-24] MEDS ORDERED: PROPRANOLOL HCL40 M1 PO (16:05)
[2017-12-24 20:00] VITALS: BP 133/73
[2017-12-25] VITALS: BP 122/67
[2017-12-25 06:16] LABS: BASO # 0.1 10*3/uL (0.0-0.1); BASO % 0.5 % (0.0-1.0); EOS # 0.4 10*3/uL (0.0-0.4); EOS % 3.5 % (1.0-4.0); HEMATOCRIT 43.8 % (42.0-52.0); HEMOGLOBIN 14.3 g/dl (14.0-18.0); LYMPH # 2.7 10*3/uL (1.3-4.4); LYMPH % 22.6 % (27.0-41.0); MEAN CELL VOLUME 94.2 fl (80.0-94.0); MEAN CORPUSCULAR HGB 30.8 pg (27.0-31.0); MEAN CORPUSCULAR HGB CONC 32.6 g/dl (33.0-37.0); MONO # 1.1 10*3/uL (0.1-1.0); MONO % 9.4 % (3.0-9.0); NEUT # 7.5 10*3/uL (2.3-7.9); NEUT % 63.5 % (47.0-73.0); PLATELET COUNT AUTOMATED 188 10*3/uL (130-400); RED BLOOD COUNT 4.65 10*6/uL (4.50-5.90); RED CELL DISTRI WIDTH 13.6 % (0-14.5); WHITE BLOOD COUNT 11.8 10*3/uL (4.8-10.8)
[2017-12-25 06:43] LABS: ALBUMIN 3.3 gm/dl (3.1-4.5); ALKALINE PHOSPHATASE 121 U/L (45-117); BUN 8 mg/dl (7-24); CHLORIDE 107 mmol/L (98-107); CHOLESTEROL 178 mg/dL (<200); CREATININE 0.81 mg/dL (0.70-1.30); HDL CHOLESTEROL 33 mg/dl (40-60); LDL CHOLESTEROL 94 mg/dL (9-159); PHOSPHOROUS 3.2 mg/dL (2.5-4.9); SGOT/AST 23 IU/L (3-35); SGPT/ALT 25 U/L (12-78); SODIUM 141 mmol/L (136-145); TOTAL PROTEIN 7.4 gm/dL (6.4-8.2); TRIGLYCERIDES 255 mg/dl (<150); VANCOMYCIN TROUGH 11.7 ug/mL (10-20); VLDL CHOLESTEROL 51 mg/dL (6-40)
[2017-12-25 06:44] LABS: FREE T4 1.08 ng/dl (0.76-1.46)
[2017-12-25 07:50] LABS: VITAMIN D, 25-HYDROXY 7.3 ng/mL (30-100)
[2017-12-25 08:00] VITALS: BP 138/74
[2017-12-25 12:00] VITALS: BP 127/82
[2017-12-25 16:00] VITALS: BP 104/59
[2017-12-25 20:00] VITALS: BP 106/60
[2017-12-26] VITALS: BP 110/62; BP 145/81
[2017-12-26 08:00] VITALS: BP 143/69
[2017-12-26 12:00] VITALS: BP 142/82
[2017-12-26 16:00] VITALS: BP 127/60
[2017-12-26 20:00] VITALS: BP 120/60
[2017-12-27] VITALS: BP 140/60
[2017-12-27 08:00] VITALS: BP 146/73
[2017-12-27 12:00] VITALS: BP 138/64
[2017-12-27 16:00] VITALS: BP 118/68
[2017-12-27 20:00] VITALS: BP 127/60
[2017-12-28] VITALS: BP 124/63
[2017-12-28 06:43] LABS: BASO # 0.1 10*3/uL (0.0-0.1); BASO % 0.6 % (0.0-1.0); EOS # 0.3 10*3/uL (0.0-0.4); HEMATOCRIT 42.6 % (42.0-52.0); HEMOGLOBIN 13.7 g/dl (14.0-18.0); LYMPH # 2.1 10*3/uL (1.3-4.4); LYMPH % 20.6 % (27.0-41.0); MEAN CELL VOLUME 96.2 fl (80.0-94.0); MEAN CORPUSCULAR HGB 30.9 pg (27.0-31.0); MEAN CORPUSCULAR HGB CONC 32.2 g/dl (33.0-37.0); MEAN PLATELET VOLUME 12.4 fl (9.6-12.3); MONO # 0.9 10*3/uL (0.1-1.0); NEUT # 6.7 10*3/uL (2.3-7.9); NEUT % 66.3 % (47.0-73.0); PLATELET COUNT AUTOMATED 180 10*3/uL (130-400); RED BLOOD COUNT 4.43 10*6/uL (4.50-5.90); RED CELL DISTRI WIDTH 13.6 % (0-14.5)
[2017-12-28 07:08] LABS: BUN 15 mg/dl (7-24)
[2017-12-28 08:00] VITALS: BP 145/71
[2017-12-28 12:00] VITALS: BP 149/58
[2017-12-28 16:00] VITALS: BP 126/63
[2017-12-28 20:00] VITALS: BP 134/67
[2017-12-29] VITALS: BP 137/77
[2017-12-29 08:00] VITALS: BP 137/79
[2017-12-29 12:00] VITALS: BP 132/82
[2017-12-29] MEDS ORDERED: CEFDINIR300 MG PO (12:37)
[2017-12-29] MEDS ORDERED: TERBINAFINE250 MG PO (12:37)
[2017-12-29 16:00] VITALS: BP 127/61
[2017-12-29 20:00] VITALS: BP 130/96
[2017-12-30] VITALS: BP 134/67
[2017-12-30 08:00] VITALS: BP 139/65
[2017-12-30 12:00] VITALS: BP 117/71
[2017-12-30] MEDS ORDERED: Vitamin D PO (14:12)
[2017-12-30] MEDS ORDERED: METFORMIN HCL1000 M1 PO (14:12)
== END 2017-12-30 17:00 | disposition home health service (06) | DRG 603 ==
LOC: ED 11:46 → 4E 13:32 → EDHOLD 13:32 → 4E 14:05
PROVIDERS: Emergency Medicine; Internal Medicine; Registered Nurse
PROC: 2W1LX6Z Compression of Right Lower Extremity using Pressure Dressing (ICD-10-PCS; principal; 2017-12-29)
PROC: 2W1MX6Z Compression of Left Lower Extremity using Pressure Dressing (ICD-10-PCS; principal; 2017-12-29)
DX: L03.116 Cellulitis of left lower limb (principal); E87.2 Acidosis; E11.51 Type 2 diabetes mellitus with diabetic peripheral angiopathy without gangrene; E11.42 Type 2 diabetes mellitus with diabetic polyneuropathy; B35.1 Tinea unguium; E11.65 Type 2 diabetes mellitus with hyperglycemia; R00.1 Bradycardia, unspecified; E78.2 Mixed hyperlipidemia; E55.9 Vitamin D deficiency, unspecified; I87.2 Venous insufficiency (chronic) (peripheral); E66.3 Overweight; D53.9 Nutritional anemia, unspecified; F17.210 Nicotine dependence, cigarettes, uncomplicated; L03.115 Cellulitis of right lower limb; F20.9 Schizophrenia, unspecified; E87.8 Other disorders of electrolyte and fluid balance, not elsewhere classified; I10 Essential (primary) hypertension; Z79.82 Long term (current) use of aspirin; Z79.4 Long term (current) use of insulin; Z79.899 Other long term (current) drug therapy; Z86.14 Personal history of Methicillin resistant Staphylococcus aureus infection; Z90.49 Acquired absence of other specified parts of digestive tract; Z82.49 Family history of ischemic heart disease and other diseases of the circulatory system; Z82.5 Family history of asthma and other chronic lower respiratory diseases; Z91.14 Patient's other noncompliance with medication regimen; Z79.84 Long term (current) use of oral hypoglycemic drugs; Z71.6 Tobacco abuse counseling; Z80.1 Family history of malignant neoplasm of trachea, bronchus and lung; Z68.29 Body mass index [BMI] 29.0-29.9, adult

== ENCOUNTER → 2018-01-14 | Outpatient (CLI) | payer MEDICARE, OTHER ==
[~2018-01-14] MED LIST changes: +BENZTROPINE ME0.5 MG PO; +Bactroban Oint22 GM T; +CEFDINIR300 MG PO; +FISH OIL CONC1000 M2 PO; +GLIPIZIDE10 M2 PO; +HUMULIN 70100 UNIT/1 SQ; +HYDROCHLOROTH12.5 M2 PO; +LOPRESSOR25 MG PO; +METFORMIN HCL1000 M1 PO; +MULTIVITAMINS1 EAC5 PO; +NEURONTIN300 MG PO; +NORVASC5 MG PO; +OMEPRAZOLE MAGN20 MG PO; +PROPRANOLOL HCL40 M1 PO; +PROVENTIL HFA6.7 GM INH; +QUETIAPINE FUM200 M3 PO; +SYMB160 INH; +TERBINAFINE250 MG PO; +VITAMIN C500 M8 PO; +Vitamin D PO
== END | disposition home or self-care (01) ==
LOC: WOUNDCARE 01:50
DX: I87.333 Chronic venous hypertension (idiopathic) with ulcer and inflammation of bilateral lower extremity (principal); E11.622 Type 2 diabetes mellitus with other skin ulcer; L97.811 Non-pressure chronic ulcer of other part of right lower leg limited to breakdown of skin; L97.821 Non-pressure chronic ulcer of other part of left lower leg limited to breakdown of skin; I89.0 Lymphedema, not elsewhere classified; E11.65 Type 2 diabetes mellitus with hyperglycemia; E78.5 Hyperlipidemia, unspecified; F17.210 Nicotine dependence, cigarettes, uncomplicated; Z85.51 Personal history of malignant neoplasm of bladder

== ENCOUNTER → 2018-01-21 | Outpatient (CLI) | payer MEDICARE, OTHER | END | disposition home or self-care (01) | LOC: WOUNDCARE 04:07 | DX: I87.332 Chronic venous hypertension (idiopathic) with ulcer and inflammation of left lower extremity (principal); E11.622 Type 2 diabetes mellitus with other skin ulcer; L97.821 Non-pressure chronic ulcer of other part of left lower leg limited to breakdown of skin; I89.0 Lymphedema, not elsewhere classified; I87.321 Chronic venous hypertension (idiopathic) with inflammation of right lower extremity; E11.65 Type 2 diabetes mellitus with hyperglycemia; E78.5 Hyperlipidemia, unspecified; F17.210 Nicotine dependence, cigarettes, uncomplicated; Z85.51 Personal history of malignant neoplasm of bladder ==

== ENCOUNTER → 2018-01-28 | Outpatient (CLI) | payer MEDICARE, OTHER | END | disposition home or self-care (01) | LOC: WOUNDCARE 01:49 | DX: I87.332 Chronic venous hypertension (idiopathic) with ulcer and inflammation of left lower extremity (principal); L97.821 Non-pressure chronic ulcer of other part of left lower leg limited to breakdown of skin; I87.321 Chronic venous hypertension (idiopathic) with inflammation of right lower extremity; I89.0 Lymphedema, not elsewhere classified; E11.65 Type 2 diabetes mellitus with hyperglycemia; E78.5 Hyperlipidemia, unspecified; F17.200 Nicotine dependence, unspecified, uncomplicated; Z85.51 Personal history of malignant neoplasm of bladder ==

== ENCOUNTER → 2018-02-04 | Outpatient (CLI) | payer MEDICARE, OTHER | END | disposition home or self-care (01) | LOC: WOUNDCARE 04:01 | DX: I87.332 Chronic venous hypertension (idiopathic) with ulcer and inflammation of left lower extremity (principal); L97.828 Non-pressure chronic ulcer of other part of left lower leg with other specified severity; I89.0 Lymphedema, not elsewhere classified; I87.321 Chronic venous hypertension (idiopathic) with inflammation of right lower extremity; E78.5 Hyperlipidemia, unspecified; E11.622 Type 2 diabetes mellitus with other skin ulcer; F17.200 Nicotine dependence, unspecified, uncomplicated; Z85.51 Personal history of malignant neoplasm of bladder ==

== ENCOUNTER 2019-02-20 20:12 | Inpatient (IN) | payer MEDICARE ==
[~2019-02-20] VITALS: Ht 175.2 cm; Wt 84.5 kg
[~2019-02-20 20:12] MED LIST changes: +DEBROX15 ML OT; +Motrin,Rufen800 MG PO
[2019-02-20 20:16] VITALS: BP 93/67
[2019-02-20 21:01] LABS: HEMATOCRIT 44.8 % (42.0-52.0); HEMOGLOBIN 14.7 g/dl (14.0-18.0); MEAN CELL VOLUME 97.8 fl (80.0-94.0); MEAN CORPUSCULAR HGB 32.1 pg (27.0-31.0); MEAN CORPUSCULAR HGB CONC 32.8 g/dl (33.0-37.0); MEAN PLATELET VOLUME 12.6 fl (9.6-12.3); PLATELET COUNT AUTOMATED 318 10*3/uL (130-400); RED BLOOD COUNT 4.58 10*6/uL (4.50-5.90); RED CELL DISTRI WIDTH 13.4 % (0-14.5); WHITE BLOOD COUNT 19.8 10*3/uL (4.8-10.8)
[2019-02-20 21:18] LABS: ALBUMIN 2.3 gm/dl (3.1-4.5); ALKALINE PHOSPHATASE 109 U/L (45-117); BUN 98 mg/dl (7-24); CHLORIDE 85 mmol/L (98-107); CREATININE 4.11 mg/dL (0.70-1.30); POTASSIUM 4.1 mmol/L (3.5-5.1); SGOT/AST 11 IU/L (3-35); SGPT/ALT 19 U/L (12-78); SODIUM 126 mmol/L (136-145); TOTAL PROTEIN 8.4 gm/dL (6.4-8.2)
[2019-02-20 21:19] LABS: TROPONIN I < 0.015 ng/ml (<0.045)
--- NOTE | 2019-02-20 21:20 | NUR ---
CRITICAL LAB LA 2.9. RONEN TAY NOTIFIED.
[2019-02-20 21:40] LABS: PLATELET SUFFICIENCY NORMAL (NORMAL); TOTAL CELLS COUNTED 100 #CELLS
[2019-02-20 21:48] VITALS: BP 100/68
[2019-02-20 21:53] LABS: ABG BASE EXCESS -0.1 mmol/L (-2.0-2.0); ABG HCO3 24.2 mmol/l (22-26); ABG O2 SATURATION 94.6 % (95-97); ARTERIAL BLOOD GAS PH 7.405 (7.35-7.45); ARTERIAL BLOOD GAS PO2 65.8 mmHg (80-90)
--- NOTE | 2019-02-20 22:09 | NUR ---
PT COOPERATVE AT THIS TIME, WANTS TO GO SMOKE A CIGARRETTE.
[2019-02-20 22:14] VITALS: BP 117/67
--- NOTE | 2019-02-20 22:14 | NUR ---
A 68, admitted to ICCU, under the services of JOAN Landa DO with a diagnosis of CELLULITIS, DKA, SEPSIS AND ACUTE RENAL FAILURE. Chief complaint is CELLULITIS. Patient arrived via stretcher from ER. Monitor applied. Initial assessment completed. Vital signs taken and recorded. JOAN LANDA DO notified of admission to the unit. Orders received. See assessment for past medical history, medications and allergies. Patient and/or family oriented to unit. [facility] visitation policy reviewed. Clothing/patient valuable form completed. HUE EASTMAN A
--- NOTE | 2019-02-20 22:39 | NUR ---
UNABLE TO VERIFY HOME MEDICATIONS WITH PATIENT AT THIS TIME, NO FAMILY PRESENT AND PATIENT UNCERTAIN OF MEDICATIONS CURRENTLY BEING TAKEN.
--- NOTE | 2019-02-20 23:57 | NUR ---
CALLED DR CARRENO ABOUT WOUND. STATES TO PLACE ADAPTIC AND KERLIX ON IT FOR THE NIGHT, AND CONSULT PODIATRY.
[2019-02-21] VITALS: BP 117/67
--- NOTE | 2019-02-21 00:56 | NUR ---
NOT PLACING BRIGHT HOSE ON PATIENT DUE TO OPEN WOUNDS ON RIGHT LEG, AND HX OF CELLULITIS INVOLVING LEFT LEG WITH SOME SCAB LIKE RIZZO ON CASTANON.
--- NOTE | 2019-02-21 00:57 | NUR ---
PATIENT'S RIGHT LEG WRAPPED IN ADAPTIC, ABD PADS, AND KERLIX. SECURED WITH TAPE, PER DR CARRENO. PATIENT TOLERATED WOUND DRESSING WELL. NO S/S OF DISTRESS. AUDIBLE WHEEZE WITH HACKY COUGH NOTED. CALL LIGHT IN REACH.
[2019-02-21 01:47] LABS: CREATININE 3.58 mg/dL (0.70-1.30); POTASSIUM 3.9 mmol/L (3.5-5.1)
--- NOTE | 2019-02-21 02:06 | NUR ---
CALLED DR CARRENO WITH RESULTS OF BMP. ORDERED TO TURN OFF INSULIN DRIP AND PLACE PATIENT ON ACHS SLIDING SCALE #2. PATIENT SITTING UP IN BED. NO S/S OF DISTRESS. RESP EASY. CALL LIGHT IN REACH.
--- NOTE | 2019-02-21 03:00 | NUR ---
BLADDER SCANNED PATIENT AND RECEIVED A READING OF 595CC OF URINE IN THE BLADDER. PRINTED AND PLACED IN PATIENT'S CHART. PATIENT WAS ABLE TO VOID 325 CC'S OF URINE INTO CLEAN URINAL. URINE APPEARED TO HAVE A GREEN TINT TO IT. NO SEDIMENT NOTED. UA TO SENT.
[2019-02-21 03:04] LABS: BILIRUBIN 1+ (NEGATIVE); BLOOD TRACE-INTACT (NEGATIVE); CLARITY SL CLOUDY (CLEAR); COLOR YELLOW (YELLOW); GLUCOSE NEGATIVE (NEGATIVE); KETONE NEGATIVE (NEGATIVE); LEUKO ESTERASE 2+ (NEGATIVE); NITRITE NEGATIVE (NEGATIVE); SPECIFIC GRAVITY 1.025 (1.005-1.030); UROBILINOGEN 0.2 E.U./dl (0.2-1.0)
[2019-02-21 03:22] LABS: YEAST 2+
[2019-02-21 03:23] LABS: BACTERIA TRACE; WBC 21-30 wbc/hpf (0-5)
[2019-02-21 04:00] VITALS: BP 99/62
--- NOTE | 2019-02-21 05:46 | NUR ---
PTT THERAPEUTIC. NO CHANGES MADE TO HEPARIN INFUSION. NEW PTT ORDERED FOR 02/22 7530.
[2019-02-21 06:20] LABS: CREATININE 3.4 mg/dL (0.70-1.30); HEMATOCRIT 39.2 % (42.0-52.0); HEMOGLOBIN 12.9 g/dl (14.0-18.0); MEAN CELL VOLUME 97.5 fl (80.0-94.0); MEAN CORPUSCULAR HGB 32.1 pg (27.0-31.0); MEAN CORPUSCULAR HGB CONC 32.9 g/dl (33.0-37.0); MEAN PLATELET VOLUME 12.2 fl (9.6-12.3); PLATELET COUNT AUTOMATED 263 10*3/uL (130-400); POTASSIUM 4.3 mmol/L (3.5-5.1); RED BLOOD COUNT 4.02 10*6/uL (4.50-5.90); RED CELL DISTRI WIDTH 13.4 % (0-14.5); WHITE BLOOD COUNT 22.7 10*3/uL (4.8-10.8)
--- NOTE | 2019-02-21 06:21 | NUR ---
DR WALKER CALLED FOR PODIATRY CONSULT. NEW ORDERS RECEIVED.
[2019-02-21 06:25] LABS: PHOSPHOROUS 6.4 mg/dL (2.5-4.9)
--- NOTE | 2019-02-21 06:26 | NUR ---
INFECTIOUS DISEASE CONSULT CALLED TO ANSWERING SERVICE.
[2019-02-21 06:33] LABS: THYROID STIM HORMONE (HS) 0.768 uIU/ml (0.358-4.75)
[2019-02-21 08:00] VITALS: BP 104/53
--- NOTE | 2019-02-21 08:12 | NUR ---
RN IN TO SEE PATIENT FOR AM SHIFT ASSESSMENT, PATIENT SLEEPING BUT EASILY AWAKENS TO VOICE. VITAL SIGNS OBTAINED AND 0800 ASSESSMENT COMPLETED, SEE SCREEN. PATIENT HAS C/O MILD NAUSEA AND C/O THROBBING PAIN TO LOWER EXTREMITIES. RATES 7/10. RN MEDICATED WITH MULTIPLE MEDICATIONS PER DRS ORDERS FOR COMPLAINTS. WILL CONTINUE TO MONITOR
[2019-02-21 08:26] LABS: PLATELET SUFFICIENCY NORMAL (NORMAL); POLYCHROMASIA SLIGHT; TOTAL CELLS COUNTED 100 #CELLS; TOXIC GRANULATION SLIGHT
--- NOTE | 2019-02-21 08:54 | NUR ---
DR VEGA CONSULTED AT THIS TIME, REGARDING ALEXANDER, ALL PERTINENT LABS AND INFORMATION GIVEN TO DRGladis ORDER TO BLADDER SCAN PATIENT, IF HERE IS URINE IN BLADDER TO INSERT SAVAGE. STATES SHE WILL SEE PATIENT TODAY
[2019-02-21] MEDS ORDERED: GLUCOPHAGE500 M1 PO (09:00)
--- NOTE | 2019-02-21 09:00 | NUR ---
[facility] FOR PATIENT HE DOES NOT REMEMBER HIS MEDICATIONS, IRIS ACUNA WAS ALSO CALLED REGARDING MEDICATIONS PATIENT SAY HE ALSO USES THIS PHARMACY, BUT PER IRIS ACUNA PHARMACIST PATIENT HASNT PICKED UP MEDICATIONS SINCE NOVEMBER 2018
--- NOTE | 2019-02-21 09:00 | NUR ---
Small Machine Bindery Operator in to talk to patient. Patient states lives at home alone with his sister checking in on him. There are 2 steps in the home. Physician: [facility] [place] [facility]: [facility] health services: none, has had [facility] previously but not currently Patient's level of ADLs: MINIMAL ASSIST Patient has working utilities: yes DME: cane Follow-up physician's appointment after d/c: will be made by the hospitalist nurse director upon discharge Does patient want to access PORTAL?: no Discharge plan discussed with patient. He lives at home alone with his sister checking in on him. He is independent in his ADLs and uses a cane for ambulation. Discussed short term SNF and he refuses. Discussed home health care services and he is agreeable. When provided with a list of agencies he chose [facility]. When medically stable he will be discharged to home with [facility] services. His sister will transport on discharge. LINCOLN ROTH
[2019-02-21] MEDS ORDERED: VITAMIN C100 M3 PO (09:07)
[2019-02-21] MEDS ORDERED: NORCO 5-325 TA1 EACH PO (09:08)
--- NOTE | 2019-02-21 09:09 | NUR ---
DR CHURCHILL IN TO SEE PATIENT, ORDERED URINE STUDIES. NOTIFIED THAT MEDICATION RECONCILLIATION WAS COMPLETED THIS AM.
--- NOTE | 2019-02-21 09:19 | NUR ---
CERAMIC PLATER'S IN TO SEE PATIENT, DRY AREA TO LEFT LOWER LEG NOTED.
--- NOTE | 2019-02-21 09:27 | NUR ---
NORMAN TRAN [id number] Please refer to the physician's history and physical for past medical history, comorbid conditions, and allergies. Diagnosis: CELLULITIS OF RT LOWER EXTREMITY,DKA,ACUTE RENAL F Stoney Score: 15,AT RISK WOUND DESCRIPTIONS: Wound Number: 1 through 6 Location of the wound: RLE Type of wound: Thickness: Full Size: 37.5cm X 37.5cm X 0.1cm Tunneling: none Undermining: none Sinus Tract: none Presence of Exudate: Serous sanguineous Amount: Moderate Color: Yellow Odor: Foul Periwound Skin Appearance: Erythema Wound edges: approximated Pain (associated with wound): patient states this area "throbs at times." How does patient state this happened? patient states this area has been going on for apporximately one week. If wound is on legs/feet or hands, capillary refill time, pulses, color temp, sensation: Cap refill < 3 seconds. Intact scabs and dry skin noted to LLE. Patient denied pain to this leg at time of assessment. Surface the patient is resting on: Isoflex SKIN PREVENTION RECOMMENDATION: 1. Pressure redistribution support surface as appropriate 2. Elevate heels 3. Remove boots/TEDS every shift and reapply 4. Head of bed 30 degrees as tolerated 5. Assess nutrition and hydration 6. Manage moisture 7. Avoid the use of containment devices while in bed 8. Use absorptive products on surfaces limit layers of linens on bed 9. Turn and reposition every 1-2 hours in bed and every 1 hour in chair as tolerated 10. Weight shifts every 15 minutes while up in chair 11. Offloading with pillows or device to keep heels elevated off bed 12. Monitor skin at least every shift 13. Inspect under medical devices twice a day WOUND TREATMENT RECOMMENDATIONS: Continue current orders from podiatry. Venous/arterial studies BLE due to non healing wounds. Aquaphor to LLE daily for dryness.
--- NOTE | 2019-02-21 10:21 | NUR ---
PATIENT BLADDER SCANNED AT THIS TIME. <10 ML OF URINE. PATIENT HAD JUST URINATED PRIOR TO RN BLADDER SCANNING HIM. WILL ATTEMPT AGAIN LATER
--- NOTE | 2019-02-21 10:34 | NUR ---
Shift chart check completed.24 HR chart check completed.
--- NOTE | 2019-02-21 10:52 | NUR ---
PATIENT OFF THE FLOOR TO XRAY AND ULTRASOUND TO HAVE VENOUS AND ARTERIAL STUDIES DONE ON BLE AND XRAY OF RIGHT FOOT
--- NOTE | 2019-02-21 10:56 | NUR ---
Dr. Blount notified of wound care recommendations.
--- NOTE | 2019-02-21 11:30 | NUR ---
PATIENT REFUSING INSULIN COVERAGE, EDUCATED PATIENT TO WHY HE NEEDS TO TAKE INSULING, PATIENT STILL REFUSING
[2019-02-21 12:00] VITALS: BP 135/64
--- NOTE | 2019-02-21 12:05 | NUR ---
PATIENT BACK FROM SCANS AT THIS TIME. VITAL SIGNS STABLE. NO COMPLAINTS AT THIS TIME. RN WILL CONTINUE TO MONITOR
--- NOTE | 2019-02-21 12:48 | NUR ---
DR VEGA IN TO SEE PATIENT AT THIS TIME
--- NOTE | 2019-02-21 14:15 | NUR ---
PODIATRY IN TO SEE PATIENT AT THIS TIME.
--- NOTE | 2019-02-21 15:19 | NUR ---
PATIENT MEDICATED WITH ZOFRAN PER DRS ORDERS FOR COMPLAINTS OF NAUSEA AND DRY HEAVES. RN WILL MONITOR FOR EFFECTIVENESS
--- NOTE | 2019-02-21 15:38 | NUR ---
BGM IS NOW 285, PATIENT MEDICATED WITH 10 UNITS OF INSULIN PER SLIDING SCALE. PATIENT EDUCATED ABOUT DIET AND WHY EARLIER INSULIN WAS IMPORTANT. PATIENT AGREED TO RECIEVE INSULIN AT THIS TIME
[2019-02-21 16:00] VITALS: BP 113/52
--- NOTE | 2019-02-21 16:31 | NUR ---
RN IDENTIFIED SOME UTILITY TECHNICIAN CHANGES AND CALLED DR WILLSON TO MAKE HIM AWARE. DR WILLSON TO THE FLOOR TO ASSESS
--- NOTE | 2019-02-21 16:50 | NUR ---
STAT EKG ORDERED TO ASSESS ENGINEER ASSISTANT CHANGES.
--- NOTE | 2019-02-21 19:30 | NUR ---
ASSUMED CARE OF PATIENT. PATIENT RESTING IN BED AT THIS TIME. NO S/S OF DISTRESS. CALL LIGHT IN REACH. RESP EASY.
[2019-02-21 20:00] VITALS: BP 108/52
--- NOTE | 2019-02-21 21:17 | NUR ---
PATIENT TOOK EVENING MEDS WITHOUT INCIDENCE. TOLERATED INJECTIONS WELL. NO S/S OF DISTRESS.
[2019-02-22] VITALS: BP 122/47
[2019-02-22 04:00] VITALS: BP 113/57
--- NOTE | 2019-02-22 04:18 | NUR ---
PATIENT RESTING COMFORTABLY IN BED. NO S/S OF DISTRESS.
[2019-02-22 04:57] LABS: HEMATOCRIT 35.1 % (42.0-52.0); HEMOGLOBIN 11.3 g/dl (14.0-18.0); MEAN CORPUSCULAR HGB 31.6 pg (27.0-31.0); MEAN CORPUSCULAR HGB CONC 32.2 g/dl (33.0-37.0); MEAN PLATELET VOLUME 12.3 fl (9.6-12.3); PLATELET COUNT AUTOMATED 221 10*3/uL (130-400); RED BLOOD COUNT 3.58 10*6/uL (4.50-5.90); RED CELL DISTRI WIDTH 13.3 % (0-14.5)
[2019-02-22 05:27] LABS: ALBUMIN 1.8 gm/dl (3.1-4.5); CREATININE 2.29 mg/dL (0.70-1.30); PHOSPHOROUS 4.2 mg/dL (2.5-4.9); POTASSIUM 4.4 mmol/L (3.5-5.1); TOTAL PROTEIN 6.6 gm/dL (6.4-8.2)
[2019-02-22 06:36] LABS: TOTAL CELLS COUNTED 100 #CELLS
[2019-02-22 06:37] LABS: PLATELET SUFFICIENCY NORMAL (NORMAL); TOXIC GRANULATION SLIGHT; VACUOLATION OF NEUTROPHILS SLIGHT
[2019-02-22 07:47] VITALS: BP 127/65
--- NOTE | 2019-02-22 09:00 | NUR ---
Gas Meter Mechanic in to see patient. Discussed short term SNF and home health care services and he refuses, stating I can go stay with my sister. When medically stable he will be discharged to home.
--- NOTE | 2019-02-22 10:27 | NUR ---
Kitchen Mechanic in to see patient. Discussed short term SNF and patient continues to refuse. He states he can stay with his sister. When medically stable he will be discharged to home.
--- NOTE | 2019-02-22 10:49 | NUR ---
Palliative care order faxed to [facility]. [facility], palliative care nurse, notified.
--- NOTE | 2019-02-22 11:52 | NUR ---
COLEMAN TABARES LOTTERY CLERK WITH PALLIATIVE CARE HERE TO SPEAK WITH PT AT THIS TIME.
[2019-02-22 12:00] VITALS: BP 127/61
--- NOTE | 2019-02-22 13:16 | NUR ---
REPORT GIVEN TO KARLA MOORE NURSE ON 5E.
--- NOTE | 2019-02-22 13:55 | NUR ---
TRANSFERRED PT VIA BED TO ROOM 522. ASSESSMENT COMPLETED.VOICES NO NEEDS AT THIS TIME.RESPS EASY ON RA.DENIES ANY C/O AT THIS TIME. CALL LIGHT IN REACH.
--- NOTE | 2019-02-22 14:25 | NUR ---
Patient not available for Occupational Therapy evaluation as he is on the phone with his insurance company. OTR to recheck at a later time. Sonia Garcia OTR/l
--- NOTE | 2019-02-22 15:01 | NUR ---
Occupational Therapy evaluation completed on 5 with full eval to follow. Precautions include cellulitis of RUE, diabetic neuropathy,fall risk;bed alarm, IV UE, moderate complexity level 38365 via chart review, testing and evaluation. Recommmend OT per pOC and SNF to enable return home alone at independent level. Patient reports that he puts a bucket of water in toilet to flush and spong bathes with a bucket at home. Suspect plumbing issues. OT reported to director social welfare. Sonia Garcia OTR/l
--- NOTE | 2019-02-22 15:09 | NUR ---
Discussed with patient short term SNF and he is agreeable. When provided with a list of facilities he chose [facility]. sail lay out worker notified.
--- NOTE | 2019-02-22 15:30 | NUR ---
[facility] have no male beds. MEDICAL SCIENTIST spoke with the patient he is agreeable to be referred to [facility]. MEDICAL SCIENTIST faxed new referral to [facility].-ISIS Crews
[2019-02-22 16:00] VITALS: BP 134/69
--- NOTE | 2019-02-22 16:02 | NUR ---
Nursing screen and Occupational Therapy referral received. Thank you. Sonia Garcia OTR/L
--- NOTE | 2019-02-22 16:11 | NUR ---
PHYSICAL THERAPY Physical therapy evaluation complete, 5E. Please see evaluation for complete details. Moderate complexity (47383) evaluation per chart review and evaluation. PT to progress with transfers, gait, and LE strength per POC. Recommend SNF at discharge. Thank you. Kellen Rangel,PT,DPT.
[2019-02-22 20:00] VITALS: BP 128/67
--- NOTE | 2019-02-22 20:20 | NUR ---
PT RESTING IN BED. RESP-EASY AND REGUAR. IVF INFUSING WITH NO PROBLEM. NO C/O AT THIS TIME. CALL LIGHT IN REACH.
--- NOTE | 2019-02-22 21:00 | NUR ---
TOLERATED ROUTINE MED WITH NO PROBLEM. IVF INFUSING WITH NO PROBLEM. NO C/O AT THIS TIME. CALL LIGHT IN REACH.
[2019-02-23] VITALS: BP 132/82
--- NOTE | 2019-02-23 00:15 | NUR ---
PT C/O RIGHT FOOT PAIN, RATES PAIN 10 ON PAIN SCALE 0-10. MEDICATED WITH NORCO PO PER PRN ORDER, SEE EMAR. CALL LIGHT IN REACH. SEE SHIFT ASSESSMENT.
--- NOTE | 2019-02-23 01:00 | NUR ---
SLEEPING INB ED. MEDICATION SEEMS TO BE EFFECTIVE. CALL LIGHT IN REACH.
--- NOTE | 2019-02-23 02:06 | NUR ---
24 HR chart check completed.
--- NOTE | 2019-02-23 03:56 | NUR ---
Upon discharge recommend patient to follow up for wound care in outpatient setting continue current wound care orders at discharging facility.
--- NOTE | 2019-02-23 04:00 | NUR ---
PT RESTING IN BED WITH EYES CLOSED. RESP-EASY AND REGULAR. CALL LIGHT IN REACH.
--- NOTE | 2019-02-23 06:00 | NUR ---
BSG-129, SKIN W/D. NO C/O AT THIS TIME. IVF INFUSING WITH NO PROBLEM. CALL LIGHT IN REACH.
[2019-02-23 07:25] LABS: HEMATOCRIT 36.9 % (42.0-52.0); HEMOGLOBIN 11.7 g/dl (14.0-18.0); MEAN CORPUSCULAR HGB 32.1 pg (27.0-31.0); MEAN CORPUSCULAR HGB CONC 31.7 g/dl (33.0-37.0); MEAN PLATELET VOLUME 12.2 fl (9.6-12.3); PLATELET COUNT AUTOMATED 211 10*3/uL (130-400); RED BLOOD COUNT 3.65 10*6/uL (4.50-5.90); RED CELL DISTRI WIDTH 13.3 % (0-14.5)
[2019-02-23 07:51] LABS: CREATININE 1.5 mg/dL (0.70-1.30); POTASSIUM 4.8 mmol/L (3.5-5.1)
[2019-02-23 08:00] VITALS: BP 142/70
[2019-02-23 08:22] LABS: MEAN CELL VOLUME 101.1 fl (80.0-94.0)
[2019-02-23 08:51] LABS: TOTAL CELLS COUNTED 100 #CELLS
[2019-02-23 08:52] LABS: PLATELET SUFFICIENCY NORMAL (NORMAL); TOXIC GRANULATION SLIGHT
--- NOTE | 2019-02-23 11:00 | NUR ---
Iridologist in to see patient. No new needs or request at this time. Referral sent to [facility] per social media marketing manager. Waiting on acceptance.
[2019-02-23 12:00] VITALS: BP 138/80
--- NOTE | 2019-02-23 12:00 | NUR ---
Pt was seen in OT x 23 minutes beginning with supine to sit to EOB without difficulty. Fxl t/fs performed in bedroom area & Fxl mobility with cane required CGA due to history of falls. Educated pt & provided handouts regarding EC\WS followed by patient giving 2 examples of EC techniques. Call light within reach. Continue with POC. Iman DENG/Sirisha
--- NOTE | 2019-02-23 14:49 | NUR ---
COMPLIANCE ANALYST spoke with the patient about concerns for having no water at his home. The patient stated his water pump for [employer] went out. He stated he has been trying to save money in order to get it fixed. The patient stated he is unsure how much he has savedm but the part cost $400.00. COMPLIANCE ANALYST reached out to [facility], they do not have any assistance available to help the patient. COMPLIANCE ANALYST reached out to [facility] they do not have any services avaiable. [facility] did provide the [facility] number [phone] to see if the patient would qualify for any assistance through them. COMPLIANCE ANALYST left a voicemail for a return call. Will follow up tomorrow with them. -ISIS Crews
[2019-02-23 16:00] VITALS: BP 151/74
[2019-02-23 20:00] VITALS: BP 151/72
[2019-02-24] VITALS: BP 148/68; BP 165/72
--- NOTE | 2019-02-24 04:04 | NUR ---
24 HR chart check completed.
[2019-02-24 06:49] LABS: HEMATOCRIT 33.3 % (42.0-52.0); HEMOGLOBIN 10.9 g/dl (14.0-18.0); MEAN CELL VOLUME 99.4 fl (80.0-94.0); MEAN CORPUSCULAR HGB 32.5 pg (27.0-31.0); MEAN CORPUSCULAR HGB CONC 32.7 g/dl (33.0-37.0); MEAN PLATELET VOLUME 12.4 fl (9.6-12.3); PLATELET COUNT AUTOMATED 228 10*3/uL (130-400); RED BLOOD COUNT 3.35 10*6/uL (4.50-5.90); RED CELL DISTRI WIDTH 13.3 % (0-14.5); WHITE BLOOD COUNT 13.5 10*3/uL (4.8-10.8)
[2019-02-24 07:26] LABS: CHLORIDE 111 mmol/L (98-107); POTASSIUM 4.4 mmol/L (3.5-5.1); SODIUM 143 mmol/L (136-145)
[2019-02-24 07:29] LABS: CREATININE 1.08 mg/dL (0.70-1.30)
[2019-02-24 07:30] LABS: BUN 31 mg/dl (7-24)
[2019-02-24 07:46] LABS: BASOPHILS 1 % (0-1); PLATELET SUFFICIENCY NORMAL (NORMAL); ROULEAUX SLIGHT; TOTAL CELLS COUNTED 100 #CELLS
[2019-02-24 08:00] VITALS: BP 156/74
--- NOTE | 2019-02-24 09:00 | NUR ---
Learning And Development Assistant in to see patient. No new needs or request at this time. Referral sent to [facility] per social insurance analyst. Waiting on acceptance.
--- NOTE | 2019-02-24 09:18 | NUR ---
PHYSICAL THERAPY Patient presented to therapy in supine with head of bed elevated, and no spO2. Patient was identified by name and on wristband. Patient gives informed consent for treatment. Patient performed supine to sitting at EOB with SBA. Patient has R LE wrapped due to the cellulitis. Patient performed sit to stand transfer with CGA. Patient uses straight cane held in L hand , although he also likes to use cane in R hand. Patient performed gait with CGA X 1 for 40' x 1 with 1 LOB during turn that required MIN A X 1 TO CORRECT. Patient's PCT Jonesy came into room t oget vitals and attend to patient. Patient'as O2 sat at end of ambulation was 96% and pulse 94. Patient was left sitting on EOB with PCT CANDY present. Patient was 1:1 with this SURGICAL GARMENT FITTER for 12 minutes total. RACHEL CHASE SURGICAL GARMENT FITTER
--- NOTE | 2019-02-24 10:18 | NUR ---
ELECTRONICS ENGINEERING MANAGER completed HENS. Still waiting for a approval. -ISIS Crews
--- NOTE | 2019-02-24 10:39 | NUR ---
Faxed updates to [facility]. Still waiting for approval. -ISIS Crews
--- NOTE | 2019-02-24 11:02 | NUR ---
ISIS reached out to [facility]. Rep stated the patient may qualify for a [employer] Program. He forward the call to Tata Lamb who is over the program. ISIS left message for return call. -ISIS Crews
[2019-02-24 12:00] VITALS: BP 164/80; BP 167/70
--- NOTE | 2019-02-24 14:22 | NUR ---
ISIS received call back from Tata with [employer]. She sent an application to CAPPING MACHINE OPERATOR email in order for the patient to fill out for assistance. Patient has been provided the application. -ISIS Crews
--- NOTE | 2019-02-24 14:48 | NUR ---
Made 2 attempts for OT this afternoon however pt remarked, "I cant get up until my leg is wrapped. Waiting for that first". Will attempt another date & time for OT session. Continue with OT POC. Iman DENG/Sirisha
[2019-02-24 16:00] VITALS: BP 155/82
--- NOTE | 2019-02-24 16:28 | NUR ---
MOM given for patient c/o constipation. Will monitor.
--- NOTE | 2019-02-24 18:15 | NUR ---
MOM effective. Patient stated he had a bowel movement.
[2019-02-24 20:59] VITALS: BP 160/80
[2019-02-25] VITALS: BP 154/83
[2019-02-25 07:07] LABS: HEMATOCRIT 36.9 % (42.0-52.0); HEMOGLOBIN 11.7 g/dl (14.0-18.0); MEAN CELL VOLUME 100.5 fl (80.0-94.0); MEAN CORPUSCULAR HGB 31.9 pg (27.0-31.0); MEAN CORPUSCULAR HGB CONC 31.7 g/dl (33.0-37.0); MEAN PLATELET VOLUME 12.4 fl (9.6-12.3); PLATELET COUNT AUTOMATED 248 10*3/uL (130-400); RED BLOOD COUNT 3.67 10*6/uL (4.50-5.90); RED CELL DISTRI WIDTH 13.3 % (0-14.5); WHITE BLOOD COUNT 14.3 10*3/uL (4.8-10.8)
--- NOTE | 2019-02-25 07:26 | NUR ---
Patient is approved for [facility]. When medically stable he can be transferred to their facility. -ISIS Crews
--- NOTE | 2019-02-25 07:30 | NUR ---
Patient resting quietly with no c/o discomfort. Respirations easy and regular. Vital signs stable. No overt distress. LEONORA RG
[2019-02-25 07:32] LABS: BUN 22 mg/dl (7-24); CHLORIDE 106 mmol/L (98-107); CREATININE 1.15 mg/dL (0.70-1.30); POTASSIUM 4.4 mmol/L (3.5-5.1); SODIUM 140 mmol/L (136-145)
[2019-02-25 08:00] VITALS: BP 148/79
[2019-02-25 08:15] LABS: TOTAL CELLS COUNTED 100 #CELLS
[2019-02-25 08:16] LABS: PLATELET SUFFICIENCY NORMAL (NORMAL)
--- NOTE | 2019-02-25 10:00 | NUR ---
Notified hospitalist nurse director of patient's acceptance to [facility] and can be discharged when medically stable.
--- NOTE | 2019-02-25 11:05 | NUR ---
PHYSICAL THERAPY Patient seen this am 1;1 for therapy visit and was resting supine in bed upon therapist arrival. Patient presented with R LE lilo wrap covering foot wound and transfers all with SBA. Patient ambulated with use of st cane, 15' x 1 to bathroom, then additional 40' x 1, CGA, demonstrating "waddling" gait pattern and increased fatigue. Patient also instructed on proper / safe use of st cane prior to returning to bedside chair. Patient remained in chair with call light, tray table, and telephone. Will continue per POC as tolerated, total treatment time 16 minutes. Jc Lombardi, FUR MIXER OPERATOR
--- NOTE | 2019-02-25 11:10 | NUR ---
OT NOTE Pt was seen this A.M. 1:1 for 15 minute OT session. Upon arrival pt was supine in bed. Pt identified by name and and had no complaints at this time. Pt transferred supine to sit EOB with CGA. While sitting EOB pt was requested to juan r B socks, pt inital try was in forward flexion with complaints of feeling SOB. Educated pt on work simplification and energy conservation techniques for increased I and enhanced safety. Pt had good carry over and was able to juan r his R sock with Yadi due to wrap on RLE and L sock with SBA. Sit to stand completed from bed level with CGA and use of straight cane for UE support. Pt completed functional mobility into the bathroom with CGA and use of straight cane. There he transferred on/off standard commode with CGA and use of straight cane. He then stood sink side while washing his hands and completing hair care with CGA. Pt did have one LOB backwards while reaching overhead that required Yadi to correct. Functional mobility completed back to the recliner with CGA and use of straight cane. There he was left sitting upright with call light in hand, tray table in place, and phone in reach. Continue with rec D/C plan to SNF. JIMBO Mosquera
[2019-02-25] MEDS ORDERED: Vitamin D PO (11:12)
[2019-02-25] MEDS ORDERED: NORCO 5-325 TA1 EACH PO (11:12)
[2019-02-25] MEDS ORDERED: AUGMENTIN 875875 MG PO (11:12)
[2019-02-25 12:00] VITALS: BP 176/79
--- NOTE | 2019-02-25 12:52 | NUR ---
EMPLOYMENT CLERK received notice of patient discharge. EMPLOYMENT CLERK spoke with RN-Gi Tucker. She stated a 3 pm curing pickling packer would be best. EMPLOYMENT CLERK spoke with the patients sister to confirm she would be able to transport the patient at that time. She agreed. EMPLOYMENT CLERK let Arron Quintero and Jenn know about discharge time. EMPLOYMENT CLERK will fax Discharge orders.- ISIS Crews
--- NOTE | 2019-02-25 15:18 | NUR ---
GAVE REPORT TO CHAVEZ AT [facility] ON PATIENT. NOTIFIED OF PERSCRIPTIONS FOR VASCULAR CONSULT AND VICODIN. NO FURTHER QUESTIONS. PATIENT BEING TRANSPORTED BY SISTER WITH ALL BELONGINGS IN A WHEEL CHAIR
--- NOTE | 2019-02-25 15:21 | NUR ---
PATIENT BEING DISCHARGED WITH PA ASSISTANCE IN A WHEELCHAIR TO HIS SISTER AT THIS TIME WITH PACKET OF INFORMATION FOR [facility].
--- NOTE | 2019-02-25 15:26 | NUR ---
ISIS received notice the patients [facility] has been approved [place]. Contact the please contact the facility for any questions. -ISIS Crews
--- NOTE | 2019-02-25 16:56 | NUR ---
NOTIFIED BY P[facility] THAT THEY WANT PATIENT TO FOLLOW UP IN 1 WEEK TO CHANGE COLE BOOT INSTEAD OF 2. CHAVEZ AT [facility] CALLED AND UPDATED ON THE CHANGE.
--- NOTE | 2019-02-28 08:21 | NUR ---
OCCUPATIONAL THERAPY CO-SIGN I approve of the Occupational Therapy notes written above. ABIGAIL GARDUNO OTR/Sirisha
--- NOTE | 2019-02-28 16:36 | NUR ---
PHYSICAL THERAPY CO-SIGN I approve of the Physical Therapy notes written above. LINCOLN ELIAS, PT,DPT
== END 2019-02-25 15:26 | disposition other institution (70) | DRG 871 ==
LOC: ED 20:12 → EDHOLD 21:33 → ICCU 21:33 → 5E 02-22 14:06
PROVIDERS: Family Medicine; Internal Medicine; Physician Assistant; Student in an Organized Health Care Education/Training Program; ADMIT Internal Medicine
DX: A41.9 Sepsis, unspecified organism (principal); N17.0 Acute kidney failure with tubular necrosis; E11.10 Type 2 diabetes mellitus with ketoacidosis without coma; L03.115 Cellulitis of right lower limb; E87.1 Hypo-osmolality and hyponatremia; B37.49 Other urogenital candidiasis; M86.671 Other chronic osteomyelitis, right ankle and foot; D53.9 Nutritional anemia, unspecified; E83.41 Hypermagnesemia; E83.39 Other disorders of phosphorus metabolism; F17.210 Nicotine dependence, cigarettes, uncomplicated; I10 Essential (primary) hypertension; E11.69 Type 2 diabetes mellitus with other specified complication; E87.8 Other disorders of electrolyte and fluid balance, not elsewhere classified; B96.20 Unspecified Escherichia coli [E. coli] as the cause of diseases classified elsewhere; B95.0 Streptococcus, group A, as the cause of diseases classified elsewhere; F20.9 Schizophrenia, unspecified; R25.1 Tremor, unspecified; E78.5 Hyperlipidemia, unspecified; I87.2 Venous insufficiency (chronic) (peripheral); E11.51 Type 2 diabetes mellitus with diabetic peripheral angiopathy without gangrene; R65.20 Severe sepsis without septic shock; B35.1 Tinea unguium; E11.42 Type 2 diabetes mellitus with diabetic polyneuropathy; S80.921A Unspecified superficial injury of right lower leg, initial encounter; X58.XXXA Exposure to other specified factors, initial encounter; Y93.89 Activity, other specified; Y92.89 Other specified places as the place of occurrence of the external cause; Y99.8 Other external cause status; Z71.6 Tobacco abuse counseling; Z90.49 Acquired absence of other specified parts of digestive tract; Z80.1 Family history of malignant neoplasm of trachea, bronchus and lung; Z82.5 Family history of asthma and other chronic lower respiratory diseases; Z84.89 Family history of other specified conditions; Z82.49 Family history of ischemic heart disease and other diseases of the circulatory system; Z86.14 Personal history of Methicillin resistant Staphylococcus aureus infection; Z79.899 Other long term (current) drug therapy; Z79.84 Long term (current) use of oral hypoglycemic drugs; Z79.82 Long term (current) use of aspirin; Z85.51 Personal history of malignant neoplasm of bladder

== ENCOUNTER 2019-05-21 00:26 | Emergency (ER) | payer MEDICARE ==
[~2019-05-21] VITALS: Ht 175.2 cm; Wt 89.8 kg
--- NOTE | ~2019-05-21 | EKG ---
[place], [place] ELECTROCARDIOGRAM REPORT NAME: NORMAN TRAN UNIT #: [id number] ROOM: DOCTOR: EPIPHANY DRAFT REPORT BIRTHDATE: [birth year] [facility] Test Date: 2019-05-21 Test Time: 00:41:21 Pat Name: NORMAN TRAN Department: Room: Gender: Optimization Analyst: : 1950 Requested By: BRITTANY CRUZ Order Number: [id number] Reading MD: Hermann Bradley MD Measurements Intervals [place] Rate: 76 P: 77 IN: 173 QRS: -12 QRSD: 135 T: 39 QT: 393 QTc: 442 Interpretive Statements Sinus rhythm Right bundle branch block Baseline wander in lead(s) V4 Compared to ECG 02/21/2019 17:05:16 Left ventricular hypertrophy no longer present Electronically Signed On 05-22-2019 8:49:09 PST by Hermann Bradley MD CM:EKGRPT:ELECTROCARDIOGRAM REPORT [id number] BRITTANY CRUZ MD EPIPHSARABJIT DRAFT REPORT BRITTANY CRUZ MD
[~2019-05-21 00:26] MED LIST changes: +AUGMENTIN 875875 MG PO; +NORCO 5-325 TA1 EACH PO; +VITAMIN C100 M3 PO
[2019-05-21 01:00] LABS: BASO # 0.1 10*3/uL (0.0-0.1); BASO % 0.5 % (0.0-1.0); EOS # 0.2 10*3/uL (0.0-0.4); EOS % 1.6 % (1.0-4.0); HEMATOCRIT 41.4 % (42.0-52.0); HEMOGLOBIN 13.7 g/dl (14.0-18.0); LYMPH # 2.5 10*3/uL (1.3-4.4); LYMPH % 19.6 % (27.0-41.0); MEAN CELL VOLUME 96.5 fl (80.0-94.0); MEAN CORPUSCULAR HGB 31.9 pg (27.0-31.0); MEAN CORPUSCULAR HGB CONC 33.1 g/dl (33.0-37.0); MEAN PLATELET VOLUME 12.1 fl (9.6-12.3); MONO # 1.2 10*3/uL (0.1-1.0); MONO % 9.6 % (3.0-9.0); NEUT # 8.9 10*3/uL (2.3-7.9); NEUT % 68.2 % (47.0-73.0); PLATELET COUNT AUTOMATED 236 10*3/uL (130-400); RED BLOOD COUNT 4.29 10*6/uL (4.50-5.90); RED CELL DISTRI WIDTH 12.9 % (0-14.5)
[2019-05-21 01:11] LABS: ACT PARTIAL THROMBO TIME 26.3 SECONDS (20.0-32.1); INTERNATIONAL NORM RATIO 0.9 (2.0-3.5)
[2019-05-21 01:21] LABS: ALBUMIN 3.1 gm/dl (3.1-4.5); ALKALINE PHOSPHATASE 120 U/L (45-117); BUN 14 mg/dl (7-24); CHLORIDE 103 mmol/L (98-107); CREATININE 1.12 mg/dL (0.70-1.30); POTASSIUM 3.9 mmol/L (3.5-5.1); SGOT/AST 32 IU/L (3-35); SGPT/ALT 42 U/L (12-78); SODIUM 140 mmol/L (136-145); TOTAL PROTEIN 7.1 gm/dL (6.4-8.2)
[2019-05-21 01:25] LABS: TROPONIN I < 0.015 ng/ml (<0.045)
[2019-05-21] MEDS ORDERED: ZITHROMAX250 MG PO (02:15)
[2019-05-21] MEDS ORDERED: PREDNISONE50 MG PO (02:15)
[2019-05-21] MEDS ORDERED: VENTOLIN 02.5 MG/3 M INH (02:15)
[2019-05-21 02:27] VITALS: BP 140/72
== END 2019-05-21 02:30 | disposition home or self-care (01) ==
LOC: ED 00:26
PROVIDERS: Emergency Medicine Emergency Medical Services
DX: J20.9 Acute bronchitis, unspecified (principal); J44.9 Chronic obstructive pulmonary disease, unspecified; J44.0 Chronic obstructive pulmonary disease with (acute) lower respiratory infection; E78.5 Hyperlipidemia, unspecified; I10 Essential (primary) hypertension; E11.42 Type 2 diabetes mellitus with diabetic polyneuropathy; E11.9 Type 2 diabetes mellitus without complications; F17.210 Nicotine dependence, cigarettes, uncomplicated; Z79.899 Other long term (current) drug therapy

== ENCOUNTER 2020-08-24 13:38 | Inpatient (IN) | payer OTHER ==
[~2020-08-24] VITALS: Ht 175.3 cm; Wt 91.7 kg
[~2020-08-24 13:38] MED LIST changes: +PREDNISONE50 MG PO; +VENTOLIN 02.5 MG/3 M INH; +ZITHROMAX250 MG PO
[2020-08-24 13:55] VITALS: BP 138/72
[2020-08-24 14:59] LABS: HEMATOCRIT 38.5 % (42.0-52.0); MEAN CELL VOLUME 94.4 fl (80.0-94.0); MEAN CORPUSCULAR HGB 31.1 pg (27.0-31.0); MEAN PLATELET VOLUME 11.9 fl (9.6-12.3); PLATELET COUNT AUTOMATED 365 10*3/uL (130-400); RED BLOOD COUNT 4.08 10*6/uL (4.50-5.90); RED CELL DISTRI WIDTH 12.2 % (0-14.5); WHITE BLOOD COUNT 16.6 10*3/uL (4.8-10.8)
[2020-08-24 15:12] LABS: ACT PARTIAL THROMBO TIME 28.9 SECONDS (20.0-32.1)
[2020-08-24 15:14] LABS: BILIRUBIN Negative (Negative); BLOOD 2+ (Negative); CLARITY Turbid (Clear); COLOR Yellow (Yellow); GLUCOSE Trace (Negative); KETONE Trace (Negative); LEUKO ESTERASE 3+ (Negative); NITRITE Negative (Negative); UROBILINOGEN 0.2 E.U./dl (0.0-1.0)
[2020-08-24 15:17] LABS: ALBUMIN 2.7 gm/dl (3.1-4.5); ALKALINE PHOSPHATASE 138 U/L (45-117); BUN 29 mg/dl (7-24); CHLORIDE 100 mmol/L (98-107); POTASSIUM 5.4 mmol/L (3.5-5.1); SGOT/AST 35 IU/L (3-35); SGPT/ALT 36 U/L (12-78); SODIUM 134 mmol/L (136-145); TOTAL PROTEIN 7.8 gm/dL (6.4-8.2)
[2020-08-24 15:22] LABS: BACTERIA 4+; WBC TNTC wbc/hpf (0-5)
[2020-08-24 15:23] LABS: TROPONIN I < 0.015 ng/ml (<0.045)
[2020-08-24 15:48] LABS: TOTAL CELLS COUNTED 100 #CELLS
[2020-08-24 15:49] LABS: PLATELET SUFFICIENCY NORMAL (NORMAL)
[2020-08-24 16:00] VITALS: BP 137/67
[2020-08-24 18:50] VITALS: BP 131/71
[2020-08-24 22:06] VITALS: BP 128/62
[2020-08-24 22:30] VITALS: BP 137/67
[2020-08-25] VITALS: BP 117/70
[2020-08-25 06:55] LABS: HEMATOCRIT 34.4 % (42.0-52.0); MEAN CELL VOLUME 95.3 fl (80.0-94.0); MEAN CORPUSCULAR HGB 30.7 pg (27.0-31.0); MEAN CORPUSCULAR HGB CONC 32.3 g/dl (33.0-37.0); MEAN PLATELET VOLUME 12.2 fl (9.6-12.3); PLATELET COUNT AUTOMATED 262 10*3/uL (130-400); RED BLOOD COUNT 3.61 10*6/uL (4.50-5.90); RED CELL DISTRI WIDTH 12.2 % (0-14.5); WHITE BLOOD COUNT 10.9 10*3/uL (4.8-10.8)
[2020-08-25 07:04] LABS: ALBUMIN 2.3 gm/dl (3.1-4.5); ALKALINE PHOSPHATASE 121 U/L (45-117); BUN 26 mg/dl (7-24); CHLORIDE 103 mmol/L (98-107); CREATININE 1.21 mg/dL (0.70-1.30); FREE T4 1.35 ng/dl (0.76-1.46); POTASSIUM 4.7 mmol/L (3.5-5.1); SGOT/AST 23 IU/L (3-35); SGPT/ALT 28 U/L (12-78); SODIUM 136 mmol/L (136-145); TOTAL PROTEIN 6.9 gm/dL (6.4-8.2)
[2020-08-25 07:09] LABS: THYROID STIM HORMONE (HS) 0.595 uIU/ml (0.358-4.75)
[2020-08-25 07:51] LABS: PLATELET SUFFICIENCY NORMAL (NORMAL); TOTAL CELLS COUNTED 100 #CELLS
[2020-08-25 08:00] VITALS: BP 156/74
[2020-08-25 12:00] VITALS: BP 155/72
[2020-08-25 16:00] VITALS: BP 160/68
[2020-08-25 20:00] VITALS: BP 140/65
[2020-08-25 23:34] LABS: CREATININE 1.66 mg/dL (0.70-1.30); POTASSIUM 5.4 mmol/L (3.5-5.1)
[2020-08-26] VITALS: BP 121/69
[2020-08-26 02:04] LABS: CREATININE 1.47 mg/dL (0.70-1.30)
[2020-08-26 06:30] LABS: BASO % 0.5 % (0.0-1.0); EOS # 0.2 10*3/uL (0.0-0.4); EOS % 2.7 % (1.0-4.0); HEMATOCRIT 31.9 % (42.0-52.0); LYMPH # 1.4 10*3/uL (1.3-4.4); MEAN CELL VOLUME 96.4 fl (80.0-94.0); MEAN CORPUSCULAR HGB 30.8 pg (27.0-31.0); MEAN PLATELET VOLUME 12.3 fl (9.6-12.3); MONO # 1.4 10*3/uL (0.1-1.0); MONO % 16.2 % (3.0-9.0); NEUT # 5.4 10*3/uL (2.3-7.9); PLATELET COUNT AUTOMATED 240 10*3/uL (130-400); RED BLOOD COUNT 3.31 10*6/uL (4.50-5.90); RED CELL DISTRI WIDTH 12.4 % (0-14.5); WHITE BLOOD COUNT 8.6 10*3/uL (4.8-10.8)
[2020-08-26 06:43] LABS: BUN 29 mg/dl (7-24); CHLORIDE 101 mmol/L (98-107); CREATININE 1.39 mg/dL (0.70-1.30); POTASSIUM 5.5 mmol/L (3.5-5.1); SODIUM 132 mmol/L (136-145)
[2020-08-26 08:00] VITALS: BP 128/76
[2020-08-26 12:00] VITALS: BP 136/76
[2020-08-26 16:00] VITALS: BP 161/72
[2020-08-26 20:00] VITALS: BP 134/63
[2020-08-26 21:58] LABS: BUN 26 mg/dl (7-24); CHLORIDE 101 mmol/L (98-107); CREATININE 1.39 mg/dL (0.70-1.30); POTASSIUM 5.4 mmol/L (3.5-5.1); SODIUM 133 mmol/L (136-145)
[2020-08-27] VITALS: BP 133/61
[2020-08-27 06:45] LABS: BASO # 0.1 10*3/uL (0.0-0.1); BASO % 0.6 % (0.0-1.0); BUN 21 mg/dl (7-24); CHLORIDE 103 mmol/L (98-107); CREATININE 1.18 mg/dL (0.70-1.30); EOS # 0.1 10*3/uL (0.0-0.4); EOS % 1.2 % (1.0-4.0); HEMATOCRIT 35.9 % (42.0-52.0); LYMPH # 1.4 10*3/uL (1.3-4.4); LYMPH % 12.5 % (27.0-41.0); MEAN CELL VOLUME 95.7 fl (80.0-94.0); MEAN CORPUSCULAR HGB 30.9 pg (27.0-31.0); MEAN CORPUSCULAR HGB CONC 32.3 g/dl (33.0-37.0); MONO # 1.4 10*3/uL (0.1-1.0); MONO % 12.2 % (3.0-9.0); NEUT % 72.1 % (47.0-73.0); PLATELET COUNT AUTOMATED 282 10*3/uL (130-400); POTASSIUM 4.9 mmol/L (3.5-5.1); RED BLOOD COUNT 3.75 10*6/uL (4.50-5.90); RED CELL DISTRI WIDTH 12.3 % (0-14.5); SODIUM 136 mmol/L (136-145); WHITE BLOOD COUNT 11.1 10*3/uL (4.8-10.8)
[2020-08-27 08:00] VITALS: BP 130/60
[2020-08-27 12:00] VITALS: BP 135/65
[2020-08-27 16:00] VITALS: BP 144/62
[2020-08-27 18:49] LABS: BILIRUBIN Negative (Negative); BLOOD 1+ (Negative); CLARITY Turbid (Clear); COLOR Yellow (Yellow); GLUCOSE 3+ (Negative); KETONE Negative (Negative); LEUKO ESTERASE 3+ (Negative); NITRITE Negative (Negative); PH 5.5 (4.5-8.0); UROBILINOGEN 0.2 E.U./dl (0.0-1.0)
[2020-08-27 18:56] LABS: BACTERIA TRACE; EPITHELIAL CELLS 0-2; RBC 0-2 rbc/hpf (0-2); WBC TNTC wbc/hpf (0-5)
[2020-08-27 20:00] VITALS: BP 127/70
[2020-08-28] VITALS: BP 143/72
[2020-08-28 06:38] LABS: BASO # 0.1 10*3/uL (0.0-0.1); BASO % 0.9 % (0.0-1.0); EOS # 0.5 10*3/uL (0.0-0.4); HEMATOCRIT 34.9 % (42.0-52.0); LYMPH # 1.9 10*3/uL (1.3-4.4); LYMPH % 19.3 % (27.0-41.0); MEAN CORPUSCULAR HGB 30.6 pg (27.0-31.0); MEAN CORPUSCULAR HGB CONC 31.2 g/dl (33.0-37.0); MONO # 1.2 10*3/uL (0.1-1.0); MONO % 12.6 % (3.0-9.0); NEUT # 5.8 10*3/uL (2.3-7.9); NEUT % 60.1 % (47.0-73.0); PLATELET COUNT AUTOMATED 253 10*3/uL (130-400); RED BLOOD COUNT 3.56 10*6/uL (4.50-5.90); RED CELL DISTRI WIDTH 12.4 % (0-14.5); WHITE BLOOD COUNT 9.7 10*3/uL (4.8-10.8)
[2020-08-28 06:42] LABS: BUN 17 mg/dl (7-24); CHLORIDE 104 mmol/L (98-107); CREATININE 1.07 mg/dL (0.70-1.30); POTASSIUM 5.1 mmol/L (3.5-5.1); SODIUM 136 mmol/L (136-145)
[2020-08-28 08:00] VITALS: BP 151/81
[2020-08-28 12:00] VITALS: BP 150/73
[2020-08-28] MEDS ORDERED: Cleocin150 MG PO (13:58)
[2020-08-28] MEDS ORDERED: CEPHALEXIN500 M1 PO (15:39)
== END 2020-08-28 16:37 | disposition home health service (06) | DRG 602 ==
LOC: ED 13:38 → EDHOLD 15:57 → 5E 15:57 → EDHOLD 16:36 → 5E 20:40
PROVIDERS: Emergency Medicine; Hospitalist; Internal Medicine; Internal Medicine Nephrology; Student in an Organized Health Care Education/Training Program; ADMIT Emergency Medicine; ATTEND Emergency Medicine
DX: L03.116 Cellulitis of left lower limb (principal); N17.0 Acute kidney failure with tubular necrosis; J44.0 Chronic obstructive pulmonary disease with (acute) lower respiratory infection; E44.0 Moderate protein-calorie malnutrition; N30.01 Acute cystitis with hematuria; L97.929 Non-pressure chronic ulcer of unspecified part of left lower leg with unspecified severity; L97.919 Non-pressure chronic ulcer of unspecified part of right lower leg with unspecified severity; E87.5 Hyperkalemia; I10 Essential (primary) hypertension; E11.65 Type 2 diabetes mellitus with hyperglycemia; F20.9 Schizophrenia, unspecified; J20.9 Acute bronchitis, unspecified; I87.2 Venous insufficiency (chronic) (peripheral); F17.210 Nicotine dependence, cigarettes, uncomplicated; R74.8 Abnormal levels of other serum enzymes; E78.2 Mixed hyperlipidemia; E11.42 Type 2 diabetes mellitus with diabetic polyneuropathy; D72.829 Elevated white blood cell count, unspecified; E11.51 Type 2 diabetes mellitus with diabetic peripheral angiopathy without gangrene; D53.9 Nutritional anemia, unspecified; L03.115 Cellulitis of right lower limb; Z68.29 Body mass index [BMI] 29.0-29.9, adult; Z79.4 Long term (current) use of insulin; Z86.14 Personal history of Methicillin resistant Staphylococcus aureus infection; Z90.49 Acquired absence of other specified parts of digestive tract; Z80.1 Family history of malignant neoplasm of trachea, bronchus and lung; Z83.6 Family history of other diseases of the respiratory system; Z79.899 Other long term (current) drug therapy

== ENCOUNTER → 2020-08-30 | Outpatient (CLI) | payer OTHER ==
[~2020-08-30] MED LIST changes: +CEPHALEXIN500 M1 PO; +Cleocin150 MG PO
== END ==
LOC: WOUNDCARE 00:42
PROVIDERS: ATTEND Nurse Practitioner
DX: I89.0 Lymphedema, not elsewhere classified (principal); E11.622 Type 2 diabetes mellitus with other skin ulcer; I87.332 Chronic venous hypertension (idiopathic) with ulcer and inflammation of left lower extremity; L97.822 Non-pressure chronic ulcer of other part of left lower leg with fat layer exposed; I87.321 Chronic venous hypertension (idiopathic) with inflammation of right lower extremity; L97.812 Non-pressure chronic ulcer of other part of right lower leg with fat layer exposed; L03.115 Cellulitis of right lower limb; L03.116 Cellulitis of left lower limb; E78.5 Hyperlipidemia, unspecified; I10 Essential (primary) hypertension; F17.210 Nicotine dependence, cigarettes, uncomplicated

== ENCOUNTER → 2020-09-06 | Outpatient (CLI) | payer OTHER | LOC: WOUNDCARE 00:56 | PROVIDERS: ATTEND Nurse Practitioner | DX: E11.622 Type 2 diabetes mellitus with other skin ulcer (principal); I87.332 Chronic venous hypertension (idiopathic) with ulcer and inflammation of left lower extremity; I89.0 Lymphedema, not elsewhere classified; L97.822 Non-pressure chronic ulcer of other part of left lower leg with fat layer exposed; I87.321 Chronic venous hypertension (idiopathic) with inflammation of right lower extremity; L03.115 Cellulitis of right lower limb; L03.116 Cellulitis of left lower limb; E78.5 Hyperlipidemia, unspecified; F17.210 Nicotine dependence, cigarettes, uncomplicated ==

== ENCOUNTER → 2020-09-13 | Outpatient (CLI) | payer OTHER | LOC: WOUNDCARE 02:15 | PROVIDERS: ATTEND Nurse Practitioner | DX: E11.622 Type 2 diabetes mellitus with other skin ulcer (principal); I87.332 Chronic venous hypertension (idiopathic) with ulcer and inflammation of left lower extremity; L97.822 Non-pressure chronic ulcer of other part of left lower leg with fat layer exposed; I87.321 Chronic venous hypertension (idiopathic) with inflammation of right lower extremity; I89.0 Lymphedema, not elsewhere classified; L03.115 Cellulitis of right lower limb; L03.116 Cellulitis of left lower limb; E78.5 Hyperlipidemia, unspecified; F17.210 Nicotine dependence, cigarettes, uncomplicated ==

== ENCOUNTER → 2020-09-20 | Outpatient (CLI) | payer OTHER | LOC: WOUNDCARE 02:51 | PROVIDERS: ATTEND Nurse Practitioner | DX: E11.622 Type 2 diabetes mellitus with other skin ulcer (principal); I87.332 Chronic venous hypertension (idiopathic) with ulcer and inflammation of left lower extremity; L97.822 Non-pressure chronic ulcer of other part of left lower leg with fat layer exposed; I87.321 Chronic venous hypertension (idiopathic) with inflammation of right lower extremity; I89.0 Lymphedema, not elsewhere classified; E11.51 Type 2 diabetes mellitus with diabetic peripheral angiopathy without gangrene; L03.115 Cellulitis of right lower limb; L03.116 Cellulitis of left lower limb; E78.5 Hyperlipidemia, unspecified; F17.210 Nicotine dependence, cigarettes, uncomplicated ==

== ENCOUNTER → 2020-09-27 | Outpatient (CLI) | payer OTHER | LOC: WOUNDCARE 03:58 | PROVIDERS: ATTEND Nurse Practitioner | DX: I89.0 Lymphedema, not elsewhere classified (principal); E11.622 Type 2 diabetes mellitus with other skin ulcer; I87.332 Chronic venous hypertension (idiopathic) with ulcer and inflammation of left lower extremity; L97.822 Non-pressure chronic ulcer of other part of left lower leg with fat layer exposed; I87.321 Chronic venous hypertension (idiopathic) with inflammation of right lower extremity; E11.51 Type 2 diabetes mellitus with diabetic peripheral angiopathy without gangrene; L03.115 Cellulitis of right lower limb; L03.116 Cellulitis of left lower limb; E78.5 Hyperlipidemia, unspecified; F17.210 Nicotine dependence, cigarettes, uncomplicated ==

== ENCOUNTER → 2020-10-04 | Outpatient (CLI) | payer OTHER | LOC: WOUNDCARE 02:06 | PROVIDERS: ATTEND Nurse Practitioner | DX: E11.622 Type 2 diabetes mellitus with other skin ulcer (principal); I87.321 Chronic venous hypertension (idiopathic) with inflammation of right lower extremity; L97.812 Non-pressure chronic ulcer of other part of right lower leg with fat layer exposed; I89.0 Lymphedema, not elsewhere classified; E11.51 Type 2 diabetes mellitus with diabetic peripheral angiopathy without gangrene; L03.115 Cellulitis of right lower limb; L03.116 Cellulitis of left lower limb; E78.5 Hyperlipidemia, unspecified; F17.210 Nicotine dependence, cigarettes, uncomplicated ==

== ENCOUNTER → 2020-10-11 | Outpatient (CLI) | payer OTHER | LOC: WOUNDCARE 00:26 | PROVIDERS: ATTEND Nurse Practitioner | DX: E11.622 Type 2 diabetes mellitus with other skin ulcer (principal); I87.332 Chronic venous hypertension (idiopathic) with ulcer and inflammation of left lower extremity; L97.818 Non-pressure chronic ulcer of other part of right lower leg with other specified severity; I87.321 Chronic venous hypertension (idiopathic) with inflammation of right lower extremity; I89.0 Lymphedema, not elsewhere classified; E11.51 Type 2 diabetes mellitus with diabetic peripheral angiopathy without gangrene; L03.115 Cellulitis of right lower limb; L03.116 Cellulitis of left lower limb; E78.5 Hyperlipidemia, unspecified; F17.210 Nicotine dependence, cigarettes, uncomplicated ==

== ENCOUNTER → 2020-12-06 | Outpatient (CLI) | payer OTHER | END | disposition home or self-care (01) | LOC: CT 13:00 | PROVIDERS: ATTEND Nurse Practitioner Family | DX: R16.0 Hepatomegaly, not elsewhere classified (principal); I71.4 Abdominal aortic aneurysm, without rupture; Z95.828 Presence of other vascular implants and grafts ==

== ENCOUNTER 2022-02-07 05:54 | Emergency (ER) | payer MEDICARE ==
[~2022-02-07] VITALS: Ht 175.2 cm; Wt 83.5 kg
[2022-02-07 06:11] VITALS: BP 145/77
== END 2022-02-07 08:24 | disposition home or self-care (01) ==
LOC: ED 05:54
DX: S50.01XA Contusion of right elbow, initial encounter (principal); S20.212A Contusion of left front wall of thorax, initial encounter; F17.200 Nicotine dependence, unspecified, uncomplicated; Z79.899 Other long term (current) drug therapy; Z90.49 Acquired absence of other specified parts of digestive tract; Z98.890 Other specified postprocedural states; W01.0XXA Fall on same level from slipping, tripping and stumbling without subsequent striking against object, initial encounter; Y93.89 Activity, other specified; Y92.89 Other specified places as the place of occurrence of the external cause; Y99.8 Other external cause status

== ENCOUNTER 2022-07-13 17:31 | Inpatient (IN) | payer MEDICARE ==
[~2022-07-13] VITALS: Ht 175.3 cm; Wt 70.5 kg
[~2022-07-13 17:31] MED LIST changes: +BACTRIM 400-801 EACH PO; +BENZONATATE150 MG PO; +DECADRON6 M1 PO; +DEPAKOTE500 M1 PO; +ENALAPRIL20 MG PO; +FLOMAX0.4 MG PO; +FLUCONAZOLE100 MG PO; +INSULIN GL100 UNIT/3 SC; +LIPITOR40 MG PO; +MUCINEX ER600 MG PO; +MUCINEX1200 M1 PO; +OZEMPIC1 MG/0.71 SQ; +PRILOSEC20 M1 PO; +XALATAN 0.005%2.5 ML INTRAOC
[2022-07-13 17:38] VITALS: BP 113/66
[2022-07-13 18:13] LABS: HEMATOCRIT 34.9 % (42.0-52.0); MEAN CELL VOLUME 99.4 fl (80.0-94.0); MEAN CORPUSCULAR HGB 31.3 pg (27.0-31.0); MEAN CORPUSCULAR HGB CONC 31.5 g/dl (33.0-37.0); MEAN PLATELET VOLUME 11.3 fl (9.6-12.3); PLATELET COUNT AUTOMATED 256 10*3/uL (130-400); RED BLOOD COUNT 3.51 10*6/uL (4.50-5.90); RED CELL DISTRI WIDTH 14.1 % (0-14.5); WHITE BLOOD COUNT 21.5 10*3/uL (4.8-10.8)
[2022-07-13 18:16] LABS: MANUAL DIFF REFLEX YES
[2022-07-13 18:34] LABS: ALKALINE PHOSPHATASE 324 U/L (46-116); BUN 9 mg/dl (9-23); CHLORIDE 99 mmol/L (98-107); POTASSIUM 3.3 mmol/L (3.4-5.1); SGPT/ALT 10 U/L (10-49); TOTAL PROTEIN 7.2 gm/dL (6.0-8.0)
[2022-07-13 18:35] LABS: ETHYL ALCOHOL < 3.0 mg/dl (<3)
[2022-07-13 18:37] LABS: PLATELET SUFFICIENCY NORMAL (NORMAL); TOTAL CELLS COUNTED 100 #CELLS
[2022-07-13 18:38] LABS: BURR CELLS FEW; POLYCHROMASIA SLIGHT; TARGET CELLS FEW
[2022-07-13 19:34] LABS: BILIRUBIN Negative (Negative); BLOOD 2+ (Negative); CLARITY Cloudy (Clear); COLOR Dark Yellow (Yellow); GLUCOSE Trace (Negative); KETONE Trace (Negative); LEUKO ESTERASE 2+ (Negative); NITRITE Negative (Negative); PH 5.5 (4.5-8.0)
[2022-07-13 19:59] LABS: BACTERIA 3+; WBC TNTC wbc/hpf (0-5)
[2022-07-13 20:00] LABS: EPITHELIAL CELLS TNTC
[2022-07-13 20:01] LABS: CALCIUM OXALATE CRYSTALS Trace; YEAST 4+
[2022-07-13 20:56] VITALS: BP 149/70
[2022-07-13 22:13] VITALS: BP 150/69
[2022-07-13 23:57] VITALS: BP 151/70
[2022-07-14 06:10] VITALS: BP 127/70
[2022-07-14 06:52] LABS: HEMATOCRIT 31.5 % (42.0-52.0); MEAN CORPUSCULAR HGB 31.5 pg (27.0-31.0); MEAN CORPUSCULAR HGB CONC 32.7 g/dl (33.0-37.0); MEAN PLATELET VOLUME 11.5 fl (9.6-12.3); PLATELET COUNT AUTOMATED 234 10*3/uL (130-400); RED BLOOD COUNT 3.27 10*6/uL (4.50-5.90); WHITE BLOOD COUNT 20.1 10*3/uL (4.8-10.8)
[2022-07-14 06:54] LABS: MANUAL DIFF REFLEX YES
[2022-07-14 07:01] LABS: ACT PARTIAL THROMBO TIME 40.2 SECONDS (20.0-32.1); INTERNATIONAL NORM RATIO 1.2 (2.0-3.5)
[2022-07-14 07:10] LABS: ALKALINE PHOSPHATASE 273 U/L (46-116); BUN 11 mg/dl (9-23); CHLORIDE 103 mmol/L (98-107); CHOLESTEROL 67 mg/dL (<200); FREE T4 1.12 ng/dl (0.89-1.76); LDL CHOLESTEROL 34 mg/dL (9-159); POTASSIUM 3.3 mmol/L (3.4-5.1); SGPT/ALT 13 U/L (10-49); THYROID STIM HORMONE (HS) 0.058 uIU/ml (0.550-4.780); TOTAL PROTEIN 6.7 gm/dL (6.0-8.0); TRIGLYCERIDES 68 mg/dl (<150)
[2022-07-14 08:00] LABS: MEAN CELL VOLUME 96.3 fl (80.0-94.0)
[2022-07-14 08:02] LABS: BASOPHILS 1 % (0-1); PLATELET SUFFICIENCY NORMAL (NORMAL); TOTAL CELLS COUNTED 100 #CELLS
[2022-07-14 09:28] LABS: VITAMIN D, 25-HYDROXY 23.1 ng/mL (30-100)
== END 2022-07-14 10:41 | disposition short-term general hospital (02) | DRG 871 ==
LOC: ED 17:31 → 5E 21:24 → EDHOLD 21:24 → 5E 22:42
PROVIDERS: Family Medicine; Physician Assistant; ADMIT Internal Medicine; ATTEND Internal Medicine
DX: A41.9 Sepsis, unspecified organism (principal); E43 Unspecified severe protein-calorie malnutrition; J15.6 Pneumonia due to other Gram-negative bacteria; J44.1 Chronic obstructive pulmonary disease with (acute) exacerbation; E87.20 Acidosis, unspecified; N39.0 Urinary tract infection, site not specified; E87.1 Hypo-osmolality and hyponatremia; C22.9 Malignant neoplasm of liver, not specified as primary or secondary; J44.0 Chronic obstructive pulmonary disease with (acute) lower respiratory infection; K74.60 Unspecified cirrhosis of liver; D35.02 Benign neoplasm of left adrenal gland; D49.4 Neoplasm of unspecified behavior of bladder; R65.20 Severe sepsis without septic shock; E78.5 Hyperlipidemia, unspecified; E11.51 Type 2 diabetes mellitus with diabetic peripheral angiopathy without gangrene; E66.9 Obesity, unspecified; E11.40 Type 2 diabetes mellitus with diabetic neuropathy, unspecified; D72.9 Disorder of white blood cells, unspecified; R31.29 Other microscopic hematuria; R16.1 Splenomegaly, not elsewhere classified; D53.9 Nutritional anemia, unspecified; R74.8 Abnormal levels of other serum enzymes; I87.2 Venous insufficiency (chronic) (peripheral); R90.82 White matter disease, unspecified; E87.6 Hypokalemia; E11.65 Type 2 diabetes mellitus with hyperglycemia; Z90.49 Acquired absence of other specified parts of digestive tract; Z80.1 Family history of malignant neoplasm of trachea, bronchus and lung; Z83.6 Family history of other diseases of the respiratory system; Z79.4 Long term (current) use of insulin; Z82.3 Family history of stroke; Z85.05 Personal history of malignant neoplasm of liver; Z86.73 Personal history of transient ischemic attack (TIA), and cerebral infarction without residual deficits; Z68.23 Body mass index [BMI] 23.0-23.9, adult

== ENCOUNTER 2024-03-25 11:18 | Inpatient (IN) | payer OTHER ==
[~2024-03-25] VITALS: Ht 175.3 cm; Wt 68.2 kg
[2024-03-25 11:29] VITALS: BP 108/62
[2024-03-25 11:45] LABS: BASO % 0.2 % (0.0-1.0); EOS % 0.4 % (1.0-4.0); HEMATOCRIT 31.4 % (42.0-52.0); LYMPH # 0.3 10*3/uL (1.3-4.4); LYMPH % 3.1 % (27.0-41.0); MEAN CELL VOLUME 101.3 fl (80.0-94.0); MEAN CORPUSCULAR HGB 32.6 pg (27.0-31.0); MEAN CORPUSCULAR HGB CONC 32.2 g/dl (33.0-37.0); MONO # 0.9 10*3/uL (0.1-1.0); MONO % 8.8 % (3.0-9.0); PLATELET COUNT AUTOMATED 92 10*3/uL (130-400); WHITE BLOOD COUNT 10.3 10*3/uL (4.8-10.8)
[2024-03-25 12:05] LABS: POTASSIUM 5.8 mmol/L (3.4-5.1); TOTAL PROTEIN 6.2 gm/dL (6.0-8.0)
[2024-03-25] MEDS ORDERED: BUSPAR15 MG PO (13:17)
[2024-03-25] MEDS ORDERED: REFRESH DIGITA1 EACH OP (13:17)
[2024-03-25] MEDS ORDERED: ALDACTONE25 M1 PO (13:18)
[2024-03-25] MEDS ORDERED: TRAMADOL HCL50 MG PO (13:18)
[2024-03-25] MEDS ORDERED: BENZONATATE200 MG PO (13:19)
[2024-03-25] MEDS ORDERED: ADULT TUSS100 MG/51 PO (13:19)
[2024-03-25] MEDS ORDERED: FUROSEMIDE40 MG PO (13:20)
[2024-03-25] MEDS ORDERED: TOPCARE OMEPRAZ20 MG PO (13:20)
[2024-03-25] MEDS ORDERED: TAMSULOSIN HCL0.4 MG PO (13:21)
[2024-03-25] MEDS ORDERED: AIRSUPRA 90-810.7 GM INH (13:21)
[2024-03-25] MEDS ORDERED: Ondansetron8 MG PO (13:22)
[2024-03-25] MEDS ORDERED: ENALAPRIL10 MG PO (13:22)
[2024-03-25] MEDS ORDERED: LATANOPROST2.5 ML OP (13:22)
[2024-03-25] MEDS ORDERED: LIPITOR10 MG PO (13:23)
[2024-03-25] MEDS ORDERED: Vancomycin Hydrochloride 250 ML IV ONE (14:00)
[2024-03-25] MEDS ORDERED: Piperacillin Sodium/Tazobact 50 ML IV ONE (14:00)
[2024-03-25] MEDS ORDERED: SODIUM CHLORIDE 0.9% 1,000 ML IV ONE ×2 (14:05→14:35)
[2024-03-25 14:24] VITALS: BP 103/56
[2024-03-25] MEDS ORDERED: Magnesium Hydroxide 30 ML UDC PO PRN (14:25)
[2024-03-25] MEDS ORDERED: TEMAZEPAM 15 MG CAP PO PRN (14:25)
[2024-03-25] MEDS ORDERED: BISACODYL 5 MG TAB PO PRN (14:25)
[2024-03-25] MEDS ORDERED: BISACODYL 10 MG SUPP R PRN (14:25)
[2024-03-25] MEDS ORDERED: DEXTROSE 10 % IN WATER 250 ML IV PRN (14:25)
[2024-03-25] MEDS ORDERED: Acetaminophen/Hydrocodone 5 MG/325 MG TABLET PO PRN (14:25)
[2024-03-25] MEDS ORDERED: Ondansetron Hydrochloride 4 MG/2 ML VIAL IV PRN (14:25)
[2024-03-25] MEDS ORDERED: MORPHINE Sulfate 2 MG/ML SYR IV PRN (14:25)
[2024-03-25] MEDS ORDERED: Vancomycin Hydrochloride 1,000 MG in SODIUM CHLORIDE 0.9% 250 ML IV SCH (14:30)
[2024-03-25] MEDS ORDERED: CALCIUM GLUC IN NACL, ISO-OSM 100 ML IV ONE (15:35)
[2024-03-25] MEDS ORDERED: INSULIN LISPRO 1 UNIT/0.01 ML SQ ONE (16:20)
[2024-03-25] MEDS ORDERED: INSULIN LISPRO 1 UNIT/0.01 ML SQ SCH (16:30)
[2024-03-25 17:22] VITALS: BP 139/65
[2024-03-25] MEDS ORDERED: Ondansetron Hydrochloride 4 MG TAB PO PRN (19:40)
[2024-03-25] MEDS ORDERED: GUAIFENESIN 10 ML UDC PO PRN (19:40)
[2024-03-25 20:00] VITALS: BP 133/66
[2024-03-25] MEDS ORDERED: Piperacillin Sodium/Tazobact 2.25 GM in SODIUM CHLORIDE 0.9% 50 ML IV SCH (20:00)
[2024-03-25] MEDS ORDERED: Tamsulosin Hydrochloride 0.4 MG CAP PO SCH (22:00)
[2024-03-25] MEDS ORDERED: ATORVASTATIN CALCIUM 10 MG TAB PO SCH (22:00)
[2024-03-25] MEDS ORDERED: busPIRone Hydrochloride 15 MG TAB PO SCH (22:00)
[2024-03-25] MEDS ORDERED: LATANOPROST 0.005% 2.5 ML BOTTLE OPH SCH (22:00)
[2024-03-25 22:40] VITALS: BP 137/68
[2024-03-25] MEDS ORDERED: ACETAMINOPHEN 325 MG TAB PO PRN (23:35)
[2024-03-26] MEDS ORDERED: Pantoprazole Sodium 40 MG TAB PO SCH (06:00)
[2024-03-26 06:08] LABS: BASO % 0.3 % (0.0-1.0); EOS # 0.1 10*3/uL (0.0-0.4); EOS % 1.7 % (1.0-4.0); LYMPH # 0.5 10*3/uL (1.3-4.4); MEAN CELL VOLUME 101.4 fl (80.0-94.0); MEAN CORPUSCULAR HGB CONC 32.5 g/dl (33.0-37.0); MEAN PLATELET VOLUME 11.6 fl (9.6-12.3); MONO # 0.7 10*3/uL (0.1-1.0); MONO % 10.3 % (3.0-9.0); NEUT # 5.2 10*3/uL (2.3-7.9); NEUT % 79.2 % (47.0-73.0); PLATELET COUNT AUTOMATED 92 10*3/uL (130-400); RED BLOOD COUNT 2.76 10*6/uL (4.50-5.90); WHITE BLOOD COUNT 6.6 10*3/uL (4.8-10.8)
[2024-03-26 06:30] LABS: ACT PARTIAL THROMBO TIME 35.4 SECONDS (20.0-32.1)
[2024-03-26 06:35] LABS: POTASSIUM 4.9 mmol/L (3.4-5.1); TOTAL PROTEIN 5.6 gm/dL (6.0-8.0)
[2024-03-26 07:17] LABS: VITAMIN D, 25-HYDROXY 48.7 ng/mL (30-100)
[2024-03-26 08:00] VITALS: BP 139/75
[2024-03-26] MEDS ORDERED: Enoxaparin Sodium 40 MG/0.4 ML SYR SC SCH (10:00)
[2024-03-26] MEDS ORDERED: Enoxaparin Sodium 30 MG/0.3 ML SYR SC SCH (10:00)
[2024-03-26] MEDS ORDERED: SPIRONOLACTONE 25 MG TAB PO SCH (10:00)
[2024-03-26 12:00] VITALS: BP 132/70
[2024-03-26] MEDS ORDERED: Vancomycin Hydrochloride 1,000 MG in SODIUM CHLORIDE 0.9% 250 ML IV SCH (12:00)
[2024-03-26 16:00] VITALS: BP 127/71
[2024-03-26 20:00] VITALS: BP 136/63
[2024-03-27] VITALS: BP 125/71
[2024-03-27 06:41] LABS: HEMATOCRIT 29.2 % (42.0-52.0); MEAN CELL VOLUME 102.8 fl (80.0-94.0); MEAN CORPUSCULAR HGB 32.7 pg (27.0-31.0); MEAN CORPUSCULAR HGB CONC 31.8 g/dl (33.0-37.0); MEAN PLATELET VOLUME 11.1 fl (9.6-12.3); PLATELET COUNT AUTOMATED 97 10*3/uL (130-400); RED BLOOD COUNT 2.84 10*6/uL (4.50-5.90); WHITE BLOOD COUNT 5.5 10*3/uL (4.8-10.8)
[2024-03-27 07:21] LABS: MANUAL DIFF REFLEX YES
[2024-03-27 07:24] LABS: BASOPHILS 2 % (0-1); PLATELET SUFFICIENCY LOW (NORMAL); TOTAL CELLS COUNTED 100 #CELLS
[2024-03-27 08:00] VITALS: BP 138/68
[2024-03-27] MEDS ORDERED: Piperacillin Sodium/Tazobact 50 ML IV SCH (08:00)
[2024-03-27 12:00] VITALS: BP 132/62
[2024-03-27 16:00] VITALS: BP 132/87
[2024-03-27 20:00] VITALS: BP 137/73
[2024-03-28] VITALS (11 sets, daily range): BP systolic 131–147; BP diastolic 65–85
[2024-03-28 06:17] LABS: POTASSIUM 5.5 mmol/L (3.4-5.1)
[2024-03-28 06:22] LABS: HEMATOCRIT 28.5 % (42.0-52.0); MANUAL DIFF REFLEX YES; MEAN CELL VOLUME 101.4 fl (80.0-94.0); MEAN CORPUSCULAR HGB 32.7 pg (27.0-31.0); MEAN CORPUSCULAR HGB CONC 32.3 g/dl (33.0-37.0); MEAN PLATELET VOLUME 11.5 fl (9.6-12.3); PLATELET COUNT AUTOMATED 109 10*3/uL (130-400); RED BLOOD COUNT 2.81 10*6/uL (4.50-5.90); RED CELL DISTRI WIDTH 13.8 % (0-14.5); WHITE BLOOD COUNT 6.8 10*3/uL (4.8-10.8)
[2024-03-28] MEDS ORDERED: Regadenoson 0.4 MG/5 ML SYR IV ONE (06:30)
[2024-03-28 07:15] LABS: BURR CELLS FEW; OVALOCYTES FEW; PLATELET SUFFICIENCY LOW (NORMAL); POLYCHROMASIA SLIGHT; TOTAL CELLS COUNTED 100 #CELLS
[2024-03-28] MEDS ORDERED: BUPIVACAINE 0.5% 30 ML IV ONE (08:49)
[2024-03-28] MEDS ORDERED: SODIUM POLYSTYRENE SULFONATE 15 GM/60 ML BOT PO ONE (08:55)
[2024-03-28] MEDS ORDERED: Vancomycin Hydrochloride 1,000 MG VIAL ONE (08:56)
[2024-03-28] MEDS ORDERED: Technetium Tc 99M Tetrofosmi 0.23 MG KIT IJ SCH (12:00)
[2024-03-29] VITALS: BP 130/64
[2024-03-29 05:45] LABS: POTASSIUM 5.5 mmol/L (3.4-5.1)
[2024-03-29 06:15] LABS: BASO % 0.5 % (0.0-1.0); EOS # 0.2 10*3/uL (0.0-0.4); EOS % 2.6 % (1.0-4.0); HEMATOCRIT 27.1 % (42.0-52.0); LYMPH # 0.6 10*3/uL (1.3-4.4); LYMPH % 10.3 % (27.0-41.0); MEAN CELL VOLUME 99.3 fl (80.0-94.0); MEAN CORPUSCULAR HGB 32.6 pg (27.0-31.0); MEAN CORPUSCULAR HGB CONC 32.8 g/dl (33.0-37.0); MEAN PLATELET VOLUME 11.4 fl (9.6-12.3); MONO # 0.9 10*3/uL (0.1-1.0); MONO % 14.8 % (3.0-9.0); NEUT # 4.5 10*3/uL (2.3-7.9); NEUT % 71.5 % (47.0-73.0); PLATELET COUNT AUTOMATED 106 10*3/uL (130-400); RED BLOOD COUNT 2.73 10*6/uL (4.50-5.90); RED CELL DISTRI WIDTH 13.9 % (0-14.5); WHITE BLOOD COUNT 6.2 10*3/uL (4.8-10.8)
[2024-03-29] MEDS ORDERED: Regadenoson 0.4 MG/5 ML SYR IV ONE (06:18)
[2024-03-29 08:00] VITALS: BP 122/71
[2024-03-29] MEDS ORDERED: ASPIRIN ENTERIC COATED 81 MG TAB PO SCH (10:00)
[2024-03-29] MEDS ORDERED: Enoxaparin Sodium 40 MG/0.4 ML SYR SC SCH (10:00)
[2024-03-29 12:00] VITALS: BP 130/79
[2024-03-29 15:08] LABS: ACID FAST SPEC PROCESSING Tissue Grinding (.)
[2024-03-29 16:00] VITALS: BP 120/72
[2024-03-29 20:00] VITALS: BP 141/66
[2024-03-29] MEDS ORDERED: ERTAPENEM1 GM IV (23:39)
[2024-03-30] VITALS: BP 146/69
[2024-03-30] MEDS ORDERED: Albuterol Sulf/Ipratropium 3 ML VIAL NEB PRN (04:00)
[2024-03-30] MEDS ORDERED: Albuterol Sulf/Ipratropium 3 ML VIAL NEB ONE (04:27)
[2024-03-30 08:00] VITALS: BP 140/74
[2024-03-30] MEDS ORDERED: ERTAPENEM1 GM IV (11:26)
[2024-03-30 12:00] VITALS: BP 137/78
[2024-03-30 20:22] VITALS: BP 143/63
[2024-03-31] VITALS: BP 142/62
[2024-03-31 08:00] VITALS: BP 144/66
[2024-03-31] MEDS ORDERED: Ertapenem Sodium 1 GM in SODIUM CHLORIDE 0.9% 50 ML IV ONE (11:05)
[2024-03-31 12:00] VITALS: BP 145/78
[2024-03-31 16:00] VITALS: BP 133/59
[2024-03-31 20:00] VITALS: BP 117/48
[2024-03-31] MEDS ORDERED: CALCIUM (TUMS) 500MG PO PRN (20:40)
[2024-04-01] VITALS: BP 140/87
[2024-04-01 08:00] VITALS: BP 127/53
[2024-04-01] MEDS ORDERED: Ertapenem Sodium 1 GM in SODIUM CHLORIDE 0.9% 50 ML IV SCH (11:00)
[2024-04-01 12:00] VITALS: BP 126/59
[2024-04-01] MEDS ORDERED: Ondansetron8 MG PO (12:10)
[2024-04-01] MEDS ORDERED: ASPIRIN ADULT L81 M2 PO (12:10)
[2024-04-01] MEDS ORDERED: ERTAPENEM1 GM IV (12:15)
[2024-04-01] MEDS ORDERED: FUROSEMIDE40 MG PO (14:19)
== END 2024-04-01 15:52 | disposition home health service (06) | DRG 622 ==
LOC: ED 11:18 → EDHOLD 14:16 → 4E 14:16 → EDHOLD 14:17 → 4E 20:58
PROVIDERS: Family Medicine; Nurse Practitioner Family; Podiatrist; Student in an Organized Health Care Education/Training Program; ADMIT Student in an Organized Health Care Education/Training Program; ATTEND Student in an Organized Health Care Education/Training Program
PROC: 0QBQ0ZX Excision of Right Toe Phalanx, Open Approach, Diagnostic (ICD-10-PCS; principal; 2024-03-28)
PROC: 0KBV0ZZ Excision of Right Foot Muscle, Open Approach (ICD-10-PCS; 2024-03-28)
PROC: 0LNV0ZZ Release Right Foot Tendon, Open Approach (ICD-10-PCS; 2024-03-28)
PROC: 0SNP0ZZ Release Right Toe Phalangeal Joint, Open Approach (ICD-10-PCS; 2024-03-28)
PROC: 0YQ Anatomical Regions, Lower Extremities, Repair (ICD-10-PCS; 2024-03-28)
PROC: 4A02XM4 Measurement of Cardiac Total Activity, External Approach (ICD-10-PCS; 2024-03-28)
PROC: 3E073KZ Introduction of Other Diagnostic Substance into Coronary Artery, Percutaneous Approach (ICD-10-PCS; 2024-03-28)
PROC: 02HV33Z Insertion of Infusion Device into Superior Vena Cava, Percutaneous Approach (ICD-10-PCS; 2024-03-30)
PROC: B548ZZA Ultrasonography of Superior Vena Cava, Guidance (ICD-10-PCS; 2024-03-30)
DX: E11.69 Type 2 diabetes mellitus with other specified complication (principal); E43 Unspecified severe protein-calorie malnutrition; L03.115 Cellulitis of right lower limb; E87.1 Hypo-osmolality and hyponatremia; M86.171 Other acute osteomyelitis, right ankle and foot; C22.9 Malignant neoplasm of liver, not specified as primary or secondary; L97.518 Non-pressure chronic ulcer of other part of right foot with other specified severity; J44.9 Chronic obstructive pulmonary disease, unspecified; K74.60 Unspecified cirrhosis of liver; N17.0 Acute kidney failure with tubular necrosis; E87.5 Hyperkalemia; E11.628 Type 2 diabetes mellitus with other skin complications; E11.65 Type 2 diabetes mellitus with hyperglycemia; D35.00 Benign neoplasm of unspecified adrenal gland; D53.9 Nutritional anemia, unspecified; R74.01 Elevation of levels of liver transaminase levels; D69.6 Thrombocytopenia, unspecified; E11.42 Type 2 diabetes mellitus with diabetic polyneuropathy; F17.200 Nicotine dependence, unspecified, uncomplicated; E11.51 Type 2 diabetes mellitus with diabetic peripheral angiopathy without gangrene; J43.9 Emphysema, unspecified; E11.22 Type 2 diabetes mellitus with diabetic chronic kidney disease; N18.30 Chronic kidney disease, stage 3 unspecified; E11.621 Type 2 diabetes mellitus with foot ulcer; Z20.822 Contact with and (suspected) exposure to COVID-19; F20.9 Schizophrenia, unspecified; I12.9 Hypertensive chronic kidney disease with stage 1 through stage 4 chronic kidney disease, or unspecified chronic kidney disease; R91.1 Solitary pulmonary nodule; A49.01 Methicillin susceptible Staphylococcus aureus infection, unspecified site; I35.0 Nonrheumatic aortic (valve) stenosis; N40.0 Benign prostatic hyperplasia without lower urinary tract symptoms; Z90.49 Acquired absence of other specified parts of digestive tract; Z80.1 Family history of malignant neoplasm of trachea, bronchus and lung; Z79.51 Long term (current) use of inhaled steroids; Z79.899 Other long term (current) drug therapy; Z82.5 Family history of asthma and other chronic lower respiratory diseases; Z68.22 Body mass index [BMI] 22.0-22.9, adult

== ENCOUNTER 2024-04-06 23:40 | Inpatient (IN) | payer MEDICARE ==
[~2024-04-06] VITALS: Ht 175.3 cm; Wt 74.1 kg
[~2024-04-06 23:40] MED LIST changes: +ADULT TUSS100 MG/51 PO; +AIRSUPRA 90-810.7 GM INH; +ALDACTONE25 M1 PO; +ASPIRIN ADULT L81 M2 PO; +BENZONATATE200 MG PO; +BUSPAR15 MG PO; +ERTAPENEM1 GM IV; +FUROSEMIDE40 MG PO; +LATANOPROST2.5 ML OP; +LIPITOR10 MG PO; +Ondansetron8 MG PO; +REFRESH DIGITA1 EACH OP; +TAMSULOSIN HCL0.4 MG PO; +TOPCARE OMEPRAZ20 MG PO; +TRAMADOL HCL50 MG PO
[2024-04-06 23:46] VITALS: BP 135/65
[2024-04-07] VITALS (7 sets, daily range): BP systolic 115–140; BP diastolic 52–76
[2024-04-07 00:37] LABS: BASO % 0.4 % (0.0-1.0); EOS # 0.1 10*3/uL (0.0-0.4); EOS % 1.2 % (1.0-4.0); HEMATOCRIT 25.6 % (42.0-52.0); LYMPH # 0.5 10*3/uL (1.3-4.4); LYMPH % 7.9 % (27.0-41.0); MEAN CELL VOLUME 100.8 fl (80.0-94.0); MEAN CORPUSCULAR HGB 32.3 pg (27.0-31.0); MEAN PLATELET VOLUME 10.1 fl (9.6-12.3); MONO # 0.7 10*3/uL (0.1-1.0); MONO % 12.2 % (3.0-9.0); NEUT # 4.4 10*3/uL (2.3-7.9); NEUT % 78.1 % (47.0-73.0); PLATELET COUNT AUTOMATED 89 10*3/uL (130-400); RED BLOOD COUNT 2.54 10*6/uL (4.50-5.90); RED CELL DISTRI WIDTH 14.3 % (0-14.5); WHITE BLOOD COUNT 5.7 10*3/uL (4.8-10.8)
[2024-04-07 01:12] LABS: TOTAL PROTEIN 6.4 gm/dL (6.0-8.0)
[2024-04-07] MEDS ORDERED: SODIUM BICARBONATE 50 MEQ/50 ML VIAL IV ONE (05:05)
[2024-04-07] MEDS ORDERED: SODIUM POLYSTYRENE SULFONATE 15 GM/60 ML BOT PO ONE (05:05)
[2024-04-07] MEDS ORDERED: INSULIN LISPRO 1 UNIT/0.01 ML SQ ONE (05:10)
[2024-04-07] MEDS ORDERED: DEXTROSE 10 % IN WATER 250 ML DEHP.FR.BG IV ONE (05:10)
[2024-04-07] MEDS ORDERED: Magnesium Hydroxide 30 ML UDC PO PRN (05:55)
[2024-04-07] MEDS ORDERED: BISACODYL 10 MG SUPP R PRN (05:55)
[2024-04-07] MEDS ORDERED: BISACODYL 5 MG TAB PO PRN (05:55)
[2024-04-07] MEDS ORDERED: Acetaminophen/Hydrocodone 5 MG/325 MG TABLET PO PRN (05:55)
[2024-04-07] MEDS ORDERED: ACETAMINOPHEN 650 MG SUPP R PRN (05:55)
[2024-04-07] MEDS ORDERED: MORPHINE Sulfate 2 MG/ML SYR IV PRN (05:55)
[2024-04-07] MEDS ORDERED: ACETAMINOPHEN 325 MG TAB PO PRN (05:55)
[2024-04-07] MEDS ORDERED: SODIUM CHLORIDE 0.9% 1,000 ML IV SCH ×2 (05:55→06:05)
[2024-04-07] MEDS ORDERED: CALCIUM GLUCONATE 1 GM/10 ML VIAL IV ONE (06:05)
[2024-04-07] MEDS ORDERED: CALCIUM GLUCONATE 1 GM/10 ML VIAL ONE (06:19)
[2024-04-07] MEDS ORDERED: Meropenem 500 MG in SODIUM CHLORIDE 0.9% 100 ML IV SCH (08:00)
[2024-04-07] MEDS ORDERED: HEPARIN SODIUM 5,000 UNIT/ML VIAL SC SCH (10:00)
[2024-04-07] MEDS ORDERED: RIVAROXABAN 10 MG TAB PO SCH (12:40)
[2024-04-07] MEDS ORDERED: Polyethylene Glycol 15 ML BOT OPH SCH (19:04)
[2024-04-07] MEDS ORDERED: LATANOPROST 0.005% 2.5 ML BOTTLE OPH SCH (22:00)
[2024-04-07] MEDS ORDERED: ATORVASTATIN CALCIUM 10 MG TAB PO SCH (22:00)
[2024-04-08] VITALS: BP 149/65
[2024-04-08] MEDS ORDERED: GUAIFENESIN 600 MG TAB ER PO SCH (01:50)
[2024-04-08] MEDS ORDERED: OMEPRAZOLE 20 MG CAP PO SCH (06:00)
[2024-04-08 06:24] LABS: BASO % 0.5 % (0.0-1.0); EOS # 0.1 10*3/uL (0.0-0.4); EOS % 1.6 % (1.0-4.0); HEMATOCRIT 23.6 % (42.0-52.0); LYMPH # 0.4 10*3/uL (1.3-4.4); LYMPH % 6.8 % (27.0-41.0); MEAN CELL VOLUME 100.9 fl (80.0-94.0); MEAN CORPUSCULAR HGB 32.1 pg (27.0-31.0); MEAN CORPUSCULAR HGB CONC 31.8 g/dl (33.0-37.0); MEAN PLATELET VOLUME 10.9 fl (9.6-12.3); MONO # 0.8 10*3/uL (0.1-1.0); MONO % 12.7 % (3.0-9.0); NEUT % 78.1 % (47.0-73.0); PLATELET COUNT AUTOMATED 96 10*3/uL (130-400); RED BLOOD COUNT 2.34 10*6/uL (4.50-5.90); RED CELL DISTRI WIDTH 14.6 % (0-14.5); WHITE BLOOD COUNT 6.4 10*3/uL (4.8-10.8)
[2024-04-08 06:32] LABS: POTASSIUM 5.8 mmol/L (3.4-5.1)
[2024-04-08 08:00] VITALS: BP 127/66
[2024-04-08] MEDS ORDERED: Meropenem 500 MG in SODIUM CHLORIDE 0.9% 50 ML IV SCH (08:00)
[2024-04-08] MEDS ORDERED: busPIRone Hydrochloride 15 MG TAB PO SCH (10:00)
[2024-04-08] MEDS ORDERED: ASPIRIN ENTERIC COATED 81 MG TAB PO SCH (10:00)
[2024-04-08] MEDS ORDERED: SODIUM POLYSTYRENE SULFONATE 15 GM/60 ML BOT PO ONE (11:35)
[2024-04-08 12:00] VITALS: BP 138/66
[2024-04-08] MEDS ORDERED: SODIUM BICARBONATE 75 MEQ in SODIUM CHLORIDE 0.45% 1,000 ML IV ONE (15:05)
[2024-04-08] MEDS ORDERED: SODIUM BICARBONATE 50 MEQ/50 ML VIAL IV ONE (15:41)
[2024-04-08 16:00] VITALS: BP 133/86
[2024-04-08 20:00] VITALS: BP 144/71
[2024-04-09] VITALS: BP 138/74
[2024-04-09 06:07] LABS: BASO % 0.3 % (0.0-1.0); EOS # 0.1 10*3/uL (0.0-0.4); EOS % 1.3 % (1.0-4.0); LYMPH # 0.7 10*3/uL (1.3-4.4); LYMPH % 7.1 % (27.0-41.0); MEAN CORPUSCULAR HGB 33.1 pg (27.0-31.0); MEAN CORPUSCULAR HGB CONC 33.8 g/dl (33.0-37.0); MEAN PLATELET VOLUME 10.9 fl (9.6-12.3); MONO # 1.3 10*3/uL (0.1-1.0); MONO % 13.5 % (3.0-9.0); NEUT # 7.4 10*3/uL (2.3-7.9); NEUT % 77.4 % (47.0-73.0); PLATELET COUNT AUTOMATED 107 10*3/uL (130-400); RED BLOOD COUNT 2.45 10*6/uL (4.50-5.90); RED CELL DISTRI WIDTH 14.5 % (0-14.5); WHITE BLOOD COUNT 9.5 10*3/uL (4.8-10.8)
[2024-04-09 06:26] LABS: POTASSIUM 5.5 mmol/L (3.4-5.1); TOTAL PROTEIN 6.3 gm/dL (6.0-8.0)
[2024-04-09] MEDS ORDERED: SODIUM POLYSTYRENE SULFONATE 15 GM/60 ML BOT PO ONE (07:40)
[2024-04-09 08:00] VITALS: BP 123/53
[2024-04-09] MEDS ORDERED: SODIUM BICARBONATE 150 MEQ in DEXTROSE 5% 1,000 ML IV ONE (10:00)
[2024-04-09 12:00] VITALS: BP 134/67
[2024-04-09 16:00] VITALS: BP 131/79
[2024-04-09 20:00] VITALS: BP 146/61
[2024-04-09] MEDS ORDERED: Albuterol Sulf/Ipratropium 3 ML VIAL NEB PRN (23:55)
[2024-04-10] VITALS: BP 148/77
[2024-04-10] MEDS ORDERED: Albuterol Sulf/Ipratropium 3 ML VIAL NEB ONE (00:07)
[2024-04-10 05:50] LABS: POTASSIUM 5.3 mmol/L (3.4-5.1)
[2024-04-10 06:27] LABS: BASO % 0.4 % (0.0-1.0); EOS # 0.1 10*3/uL (0.0-0.4); EOS % 1.2 % (1.0-4.0); HEMATOCRIT 23.5 % (42.0-52.0); LYMPH # 0.4 10*3/uL (1.3-4.4); MEAN CELL VOLUME 96.7 fl (80.0-94.0); MEAN CORPUSCULAR HGB 32.5 pg (27.0-31.0); MEAN CORPUSCULAR HGB CONC 33.6 g/dl (33.0-37.0); MEAN PLATELET VOLUME 11.2 fl (9.6-12.3); MONO % 11.2 % (3.0-9.0); NEUT # 6.9 10*3/uL (2.3-7.9); NEUT % 81.8 % (47.0-73.0); PLATELET COUNT AUTOMATED 108 10*3/uL (130-400); RED BLOOD COUNT 2.43 10*6/uL (4.50-5.90); RED CELL DISTRI WIDTH 14.4 % (0-14.5); WHITE BLOOD COUNT 8.5 10*3/uL (4.8-10.8)
[2024-04-10] MEDS ORDERED: SODIUM POLYSTYRENE SULFONATE 15 GM/60 ML BOT PO ONE (07:55)
[2024-04-10 08:00] VITALS: BP 147/90
[2024-04-10] MEDS ORDERED: SODIUM BICARBONATE 150 MEQ in DEXTROSE 5% 1,000 ML IV ONE (09:30)
[2024-04-10 12:00] VITALS: BP 129/74
[2024-04-10 16:00] VITALS: BP 133/63
[2024-04-10 20:00] VITALS: BP 130/69
[2024-04-11] VITALS: BP 126/64
[2024-04-11 06:17] LABS: BASO % 0.7 % (0.0-1.0); EOS # 0.2 10*3/uL (0.0-0.4); EOS % 2.9 % (1.0-4.0); HEMATOCRIT 22.8 % (42.0-52.0); LYMPH # 0.5 10*3/uL (1.3-4.4); LYMPH % 8.5 % (27.0-41.0); MEAN CELL VOLUME 96.6 fl (80.0-94.0); MEAN CORPUSCULAR HGB 33.5 pg (27.0-31.0); MEAN CORPUSCULAR HGB CONC 34.6 g/dl (33.0-37.0); MEAN PLATELET VOLUME 10.9 fl (9.6-12.3); MONO # 0.9 10*3/uL (0.1-1.0); MONO % 14.4 % (3.0-9.0); NEUT # 4.3 10*3/uL (2.3-7.9); NEUT % 73.2 % (47.0-73.0); PLATELET COUNT AUTOMATED 100 10*3/uL (130-400); RED BLOOD COUNT 2.36 10*6/uL (4.50-5.90); RED CELL DISTRI WIDTH 14.4 % (0-14.5); WHITE BLOOD COUNT 5.9 10*3/uL (4.8-10.8)
[2024-04-11 08:00] VITALS: BP 148/72
[2024-04-11 12:00] VITALS: BP 130/90
[2024-04-11] MEDS ORDERED: SODIUM BICARBONATE 150 MEQ in DEXTROSE 5% 1,000 ML IV ONE (12:40)
[2024-04-11 16:00] VITALS: BP 143/71
[2024-04-11 20:00] VITALS: BP 131/54
[2024-04-12] VITALS: BP 134/72
[2024-04-12 06:55] LABS: BASO % 0.4 % (0.0-1.0); EOS # 0.2 10*3/uL (0.0-0.4); EOS % 3.2 % (1.0-4.0); HEMATOCRIT 23.3 % (42.0-52.0); LYMPH # 0.5 10*3/uL (1.3-4.4); LYMPH % 9.1 % (27.0-41.0); MEAN CELL VOLUME 98.7 fl (80.0-94.0); MEAN CORPUSCULAR HGB 32.2 pg (27.0-31.0); MEAN CORPUSCULAR HGB CONC 32.6 g/dl (33.0-37.0); MEAN PLATELET VOLUME 10.9 fl (9.6-12.3); MONO # 0.8 10*3/uL (0.1-1.0); MONO % 14.1 % (3.0-9.0); NEUT # 3.9 10*3/uL (2.3-7.9); NEUT % 72.8 % (47.0-73.0); PLATELET COUNT AUTOMATED 98 10*3/uL (130-400); RED BLOOD COUNT 2.36 10*6/uL (4.50-5.90); RED CELL DISTRI WIDTH 14.6 % (0-14.5); WHITE BLOOD COUNT 5.4 10*3/uL (4.8-10.8)
[2024-04-12 07:54] LABS: POTASSIUM 4.8 mmol/L (3.4-5.1)
[2024-04-12 08:00] VITALS: BP 149/70
[2024-04-12 12:00] VITALS: BP 153/52
[2024-04-12 16:00] VITALS: BP 152/70
[2024-04-12 20:00] VITALS: BP 148/72
[2024-04-13] VITALS: BP 150/62
[2024-04-13 06:48] LABS: BASO % 0.5 % (0.0-1.0); EOS # 0.2 10*3/uL (0.0-0.4); EOS % 2.8 % (1.0-4.0); HEMATOCRIT 24.6 % (42.0-52.0); LYMPH # 0.4 10*3/uL (1.3-4.4); LYMPH % 7.7 % (27.0-41.0); MEAN CELL VOLUME 98.4 fl (80.0-94.0); MEAN CORPUSCULAR HGB 31.6 pg (27.0-31.0); MEAN CORPUSCULAR HGB CONC 32.1 g/dl (33.0-37.0); MEAN PLATELET VOLUME 11.5 fl (9.6-12.3); MONO # 0.8 10*3/uL (0.1-1.0); MONO % 13.1 % (3.0-9.0); NEUT # 4.4 10*3/uL (2.3-7.9); NEUT % 75.7 % (47.0-73.0); PLATELET COUNT AUTOMATED 110 10*3/uL (130-400); RED CELL DISTRI WIDTH 14.4 % (0-14.5); WHITE BLOOD COUNT 5.7 10*3/uL (4.8-10.8)
[2024-04-13 08:00] VITALS: BP 120/59
[2024-04-13] MEDS ORDERED: Meropenem 50 ML IV SCH (08:00)
[2024-04-13 08:07] LABS: POTASSIUM 4.8 mmol/L (3.4-5.1)
[2024-04-13 12:00] VITALS: BP 150/57
[2024-04-13] MEDS ORDERED: ERTAPENEM1 GM IV (14:36)
[2024-04-13 16:00] VITALS: BP 155/80
[2024-04-13 20:00] VITALS: BP 147/72
[2024-04-14] VITALS: BP 138/68
[2024-04-14 06:25] LABS: BASO % 0.5 % (0.0-1.0); EOS # 0.2 10*3/uL (0.0-0.4); EOS % 2.5 % (1.0-4.0); HEMATOCRIT 24.4 % (42.0-52.0); LYMPH # 0.5 10*3/uL (1.3-4.4); LYMPH % 7.8 % (27.0-41.0); MEAN CELL VOLUME 97.6 fl (80.0-94.0); MEAN CORPUSCULAR HGB 32.8 pg (27.0-31.0); MEAN CORPUSCULAR HGB CONC 33.6 g/dl (33.0-37.0); MEAN PLATELET VOLUME 11.3 fl (9.6-12.3); MONO # 0.9 10*3/uL (0.1-1.0); MONO % 14.6 % (3.0-9.0); NEUT # 4.7 10*3/uL (2.3-7.9); NEUT % 74.3 % (47.0-73.0); PLATELET COUNT AUTOMATED 108 10*3/uL (130-400); RED CELL DISTRI WIDTH 14.4 % (0-14.5); WHITE BLOOD COUNT 6.3 10*3/uL (4.8-10.8)
[2024-04-14 06:56] LABS: POTASSIUM 4.7 mmol/L (3.4-5.1); TOTAL PROTEIN 6.4 gm/dL (6.0-8.0)
[2024-04-14 08:00] VITALS: BP 154/66
[2024-04-14 12:00] VITALS: BP 161/61
[2024-04-14 16:00] VITALS: BP 161/72
[2024-04-14 20:00] VITALS: BP 132/64
[2024-04-15] VITALS: BP 132/62
[2024-04-15 06:42] LABS: BASO # 0.1 10*3/uL (0.0-0.1); BASO % 0.8 % (0.0-1.0); EOS # 0.2 10*3/uL (0.0-0.4); EOS % 2.5 % (1.0-4.0); HEMATOCRIT 24.7 % (42.0-52.0); LYMPH # 0.4 10*3/uL (1.3-4.4); LYMPH % 7.1 % (27.0-41.0); MEAN CELL VOLUME 100.4 fl (80.0-94.0); MEAN CORPUSCULAR HGB 32.1 pg (27.0-31.0); MEAN PLATELET VOLUME 11.6 fl (9.6-12.3); MONO # 0.9 10*3/uL (0.1-1.0); MONO % 14.4 % (3.0-9.0); NEUT # 4.5 10*3/uL (2.3-7.9); NEUT % 74.9 % (47.0-73.0); PLATELET COUNT AUTOMATED 105 10*3/uL (130-400); RED BLOOD COUNT 2.46 10*6/uL (4.50-5.90); RED CELL DISTRI WIDTH 14.4 % (0-14.5); WHITE BLOOD COUNT 6.1 10*3/uL (4.8-10.8)
[2024-04-15 06:50] LABS: POTASSIUM 4.7 mmol/L (3.4-5.1)
[2024-04-15 08:00] VITALS: BP 147/75
[2024-04-15 12:00] VITALS: BP 140/63
[2024-04-15 16:00] VITALS: BP 137/61
[2024-04-15 20:00] VITALS: BP 154/72
[2024-04-16] VITALS: BP 151/64
[2024-04-16 07:11] LABS: BASO % 0.4 % (0.0-1.0); EOS # 0.1 10*3/uL (0.0-0.4); EOS % 2.6 % (1.0-4.0); HEMATOCRIT 24.2 % (42.0-52.0); LYMPH # 0.5 10*3/uL (1.3-4.4); LYMPH % 8.7 % (27.0-41.0); MEAN CELL VOLUME 97.6 fl (80.0-94.0); MEAN CORPUSCULAR HGB 32.3 pg (27.0-31.0); MEAN CORPUSCULAR HGB CONC 33.1 g/dl (33.0-37.0); MEAN PLATELET VOLUME 11.5 fl (9.6-12.3); MONO # 0.8 10*3/uL (0.1-1.0); MONO % 14.3 % (3.0-9.0); NEUT # 3.9 10*3/uL (2.3-7.9); NEUT % 73.6 % (47.0-73.0); PLATELET COUNT AUTOMATED 104 10*3/uL (130-400); RED BLOOD COUNT 2.48 10*6/uL (4.50-5.90); RED CELL DISTRI WIDTH 14.3 % (0-14.5); WHITE BLOOD COUNT 5.3 10*3/uL (4.8-10.8)
[2024-04-16 07:43] LABS: POTASSIUM 4.8 mmol/L (3.4-5.1)
[2024-04-16 08:00] VITALS: BP 144/76
[2024-04-16 09:56] LABS: BILIRUBIN Negative (Negative); BLOOD 3+ (Negative); CLARITY Turbid (Clear); COLOR Yellow (Yellow); GLUCOSE Negative (Negative); KETONE Trace (Negative); LEUKO ESTERASE 3+ (Negative); NITRITE Negative (Negative); UROBILINOGEN 0.2 E.U./dl (0.0-1.0)
[2024-04-16 10:35] LABS: WBC TNTC wbc/hpf (0-5)
[2024-04-16 10:36] LABS: BACTERIA 2+; RBC 51-100 rbc/hpf (0-2); YEAST 1+
[2024-04-16 10:44] LABS: URINE CREATININE RANDOM 140.18 mg/dL
[2024-04-16 10:51] LABS: URINE CHLORIDE, RANDOM < 20 mmol/L
[2024-04-16 12:00] VITALS: BP 144/64
[2024-04-16] MEDS ORDERED: FUROSEMIDE 40 MG/4 ML VIAL IV SCH (14:55)
[2024-04-16 16:00] VITALS: BP 153/72
[2024-04-16 17:25] VITALS: BP 152/69
[2024-04-16 20:00] VITALS: BP 109/84
[2024-04-16 23:55] LABS: BASO % 0.5 % (0.0-1.0); EOS # 0.1 10*3/uL (0.0-0.4); EOS % 1.9 % (1.0-4.0); HEMATOCRIT 22.9 % (42.0-52.0); LYMPH # 0.5 10*3/uL (1.3-4.4); LYMPH % 8.5 % (27.0-41.0); MEAN CELL VOLUME 98.3 fl (80.0-94.0); MEAN CORPUSCULAR HGB 32.2 pg (27.0-31.0); MEAN CORPUSCULAR HGB CONC 32.8 g/dl (33.0-37.0); MEAN PLATELET VOLUME 11.7 fl (9.6-12.3); MONO # 0.7 10*3/uL (0.1-1.0); MONO % 11.8 % (3.0-9.0); NEUT # 4.6 10*3/uL (2.3-7.9); PLATELET COUNT AUTOMATED 104 10*3/uL (130-400); RED BLOOD COUNT 2.33 10*6/uL (4.50-5.90); RED CELL DISTRI WIDTH 14.4 % (0-14.5); WHITE BLOOD COUNT 5.9 10*3/uL (4.8-10.8)
[2024-04-17] VITALS: BP 179/74
[2024-04-17 06:11] LABS: ACT PARTIAL THROMBO TIME 37.9 SECONDS (20.0-32.1)
[2024-04-17 06:13] LABS: POTASSIUM 4.7 mmol/L (3.4-5.1)
[2024-04-17 06:47] LABS: BASO % 0.7 % (0.0-1.0); EOS # 0.2 10*3/uL (0.0-0.4); EOS % 2.5 % (1.0-4.0); LYMPH # 0.5 10*3/uL (1.3-4.4); LYMPH % 8.1 % (27.0-41.0); MEAN CELL VOLUME 98.7 fl (80.0-94.0); MEAN CORPUSCULAR HGB 33.5 pg (27.0-31.0); MEAN CORPUSCULAR HGB CONC 33.9 g/dl (33.0-37.0); MEAN PLATELET VOLUME 11.7 fl (9.6-12.3); MONO # 0.8 10*3/uL (0.1-1.0); MONO % 13.3 % (3.0-9.0); NEUT # 4.5 10*3/uL (2.3-7.9); NEUT % 75.1 % (47.0-73.0); PLATELET COUNT AUTOMATED 105 10*3/uL (130-400); RED BLOOD COUNT 2.33 10*6/uL (4.50-5.90); RED CELL DISTRI WIDTH 14.4 % (0-14.5); WHITE BLOOD COUNT 5.9 10*3/uL (4.8-10.8)
[2024-04-17 08:00] VITALS: BP 151/71
[2024-04-17 11:06] LABS: HBSAG Negative (Negative); HEP B CORE AB, IGM Negative (Negative); HEPATITIS C ANTIBODY Non Reactive (Non Reactive)
[2024-04-17 12:00] VITALS: BP 138/63
[2024-04-17 16:00] VITALS: BP 139/78
[2024-04-17 20:00] VITALS: BP 130/61
[2024-04-17] MEDS ORDERED: MORPHINE Sulfate 2 MG/ML SYR IV PRN (22:30)
[2024-04-18] VITALS: BP 152/91
[2024-04-18] MEDS ORDERED: Ondansetron Hydrochloride 4 MG/2 ML VIAL IV SCH (02:50)
[2024-04-18] MEDS ORDERED: Ondansetron Hydrochloride 4 MG/2 ML VIAL IV PRN (04:45)
[2024-04-18 06:47] LABS: BASO % 0.5 % (0.0-1.0); EOS # 0.2 10*3/uL (0.0-0.4); EOS % 3.2 % (1.0-4.0); HEMATOCRIT 23.3 % (42.0-52.0); LYMPH # 0.5 10*3/uL (1.3-4.4); LYMPH % 8.6 % (27.0-41.0); MEAN CELL VOLUME 98.7 fl (80.0-94.0); MEAN CORPUSCULAR HGB 31.8 pg (27.0-31.0); MEAN CORPUSCULAR HGB CONC 32.2 g/dl (33.0-37.0); MONO # 0.9 10*3/uL (0.1-1.0); MONO % 14.5 % (3.0-9.0); NEUT # 4.4 10*3/uL (2.3-7.9); NEUT % 72.9 % (47.0-73.0); PLATELET COUNT AUTOMATED 98 10*3/uL (130-400); RED BLOOD COUNT 2.36 10*6/uL (4.50-5.90); RED CELL DISTRI WIDTH 14.5 % (0-14.5)
[2024-04-18 06:52] LABS: POTASSIUM 4.6 mmol/L (3.4-5.1)
[2024-04-18 08:00] VITALS: BP 139/68
[2024-04-18 12:00] VITALS: BP 151/80
[2024-04-18] MEDS ORDERED: ALBUMIN 25% 50 ML IV ONE (13:35)
[2024-04-18 16:08] LABS: FREE KAPPA LIGHT CHAINS 248.9 mg/L (3.3-19.4); FREE LAMBDA LIGHT CHAINS 198.2 mg/L (5.7-26.3); KAPPA/LAMBDA RATIO 1.26 (0.26-1.65)
[2024-04-18] MEDS ORDERED: ZINC OXIDE 1 OZ TUBE T SCH (22:00)
[2024-04-19] MEDS ORDERED: SPIRONOLACTONE 25 MG TAB PO SCH (10:00)
[2024-04-19 13:07] LABS: ALBUMIN, URINE RANDOM 74.3 % (.); ALPHA-1-GLOBULIN, URINE 1.7 % (.); ALPHA-2-GLOBULIN, URINE 4.4 % (.); M-SPIKE % Comment: % (Not Observed)
== END 2024-04-18 16:23 | DRG 682 ==
LOC: ED 23:40 → 4E 04-07 05:24 → EDHOLD 04-07 05:24 → 4E 04-07 16:41
PROVIDERS: Emergency Medicine; Internal Medicine; Internal Medicine Nephrology; Student in an Organized Health Care Education/Training Program; ADMIT Internal Medicine; ATTEND Internal Medicine
PROC: 0W9G3ZZ Drainage of Peritoneal Cavity, Percutaneous Approach (ICD-10-PCS; principal; 2024-04-18)
DX: N17.0 Acute kidney failure with tubular necrosis (principal); E43 Unspecified severe protein-calorie malnutrition; E87.1 Hypo-osmolality and hyponatremia; M86.8X7 Other osteomyelitis, ankle and foot; L03.116 Cellulitis of left lower limb; L03.115 Cellulitis of right lower limb; C22.9 Malignant neoplasm of liver, not specified as primary or secondary; R18.8 Other ascites; E87.5 Hyperkalemia; E11.69 Type 2 diabetes mellitus with other specified complication; R31.9 Hematuria, unspecified; D53.9 Nutritional anemia, unspecified; I71.40 Abdominal aortic aneurysm, without rupture, unspecified; J44.9 Chronic obstructive pulmonary disease, unspecified; N40.0 Benign prostatic hyperplasia without lower urinary tract symptoms; E78.5 Hyperlipidemia, unspecified; K74.60 Unspecified cirrhosis of liver; E11.40 Type 2 diabetes mellitus with diabetic neuropathy, unspecified; E11.51 Type 2 diabetes mellitus with diabetic peripheral angiopathy without gangrene; F20.9 Schizophrenia, unspecified; S81.802A Unspecified open wound, left lower leg, initial encounter; I10 Essential (primary) hypertension; R74.01 Elevation of levels of liver transaminase levels; D69.6 Thrombocytopenia, unspecified; D49.4 Neoplasm of unspecified behavior of bladder; S81.801A Unspecified open wound, right lower leg, initial encounter; Z90.49 Acquired absence of other specified parts of digestive tract; Z87.891 Personal history of nicotine dependence; Z79.899 Other long term (current) drug therapy; Z79.01 Long term (current) use of anticoagulants; Z79.2 Long term (current) use of antibiotics; Z68.22 Body mass index [BMI] 22.0-22.9, adult; Z80.1 Family history of malignant neoplasm of trachea, bronchus and lung; Z82.5 Family history of asthma and other chronic lower respiratory diseases; Z83.3 Family history of diabetes mellitus; Z82.49 Family history of ischemic heart disease and other diseases of the circulatory system; X58.XXXA Exposure to other specified factors, initial encounter; Y93.89 Activity, other specified; Y92.89 Other specified places as the place of occurrence of the external cause; Y99.8 Other external cause status; Z85.05 Personal history of malignant neoplasm of liver

== ENCOUNTER 2024-04-25 20:16 | Inpatient (IN) | payer MEDICARE ==
[~2024-04-25] VITALS: Ht 175.2 cm; Wt 88.0 kg
[2024-04-25 20:25] VITALS: BP 152/64
[2024-04-25 20:44] LABS: BASO % 0.5 % (0.0-1.0); EOS # 0.2 10*3/uL (0.0-0.4); EOS % 3.1 % (1.0-4.0); HEMATOCRIT 23.2 % (42.0-52.0); LYMPH # 0.5 10*3/uL (1.3-4.4); LYMPH % 8.3 % (27.0-41.0); MEAN CELL VOLUME 99.1 fl (80.0-94.0); MEAN CORPUSCULAR HGB 32.1 pg (27.0-31.0); MEAN CORPUSCULAR HGB CONC 32.3 g/dl (33.0-37.0); MEAN PLATELET VOLUME 11.7 fl (9.6-12.3); MONO # 0.7 10*3/uL (0.1-1.0); MONO % 12.4 % (3.0-9.0); NEUT # 4.2 10*3/uL (2.3-7.9); NEUT % 75.5 % (47.0-73.0); PLATELET COUNT AUTOMATED 97 10*3/uL (130-400); RED BLOOD COUNT 2.34 10*6/uL (4.50-5.90); RED CELL DISTRI WIDTH 14.6 % (0-14.5); WHITE BLOOD COUNT 5.6 10*3/uL (4.8-10.8)
[2024-04-25] MEDS ORDERED: DEXTROSE 50% 25 GM/50 ML SYR IV ONE (21:20)
[2024-04-25] MEDS ORDERED: INSULIN REGULAR, HUMAN 1 UNIT/0.01 ML IV ONE (21:20)
[2024-04-25] MEDS ORDERED: CALCIUM GLUC IN NACL, ISO-OSM 100 ML IV ONE (21:20)
[2024-04-25] MEDS ORDERED: SODIUM CHLORIDE 0.9% 1,000 ML IV ONE (21:20)
[2024-04-25] MEDS ORDERED: Albuterol Sulf/Ipratropium 3 ML VIAL NEB ONE (21:20)
[2024-04-25 22:20] VITALS: BP 153/68
[2024-04-25] MEDS ORDERED: LASIX40 MG PO (22:22)
[2024-04-26 00:38] VITALS: BP 146/71
[2024-04-26 01:56] VITALS: BP 156/65
[2024-04-26] MEDS ORDERED: ACETAMINOPHEN 325 MG TAB PO PRN (02:20)
[2024-04-26] MEDS ORDERED: SODIUM POLYSTYRENE SULFONATE 15 GM/60 ML BOT PO ONE (02:25)
[2024-04-26] MEDS ORDERED: SODIUM CHLORIDE 0.9% 1,000 ML IV ONE (02:35)
[2024-04-26 03:39] LABS: BASO % 0.6 % (0.0-1.0); EOS # 0.2 10*3/uL (0.0-0.4); EOS % 3.1 % (1.0-4.0); HEMATOCRIT 22.8 % (42.0-52.0); LYMPH # 0.5 10*3/uL (1.3-4.4); LYMPH % 9.8 % (27.0-41.0); MEAN CELL VOLUME 100.4 fl (80.0-94.0); MEAN CORPUSCULAR HGB 32.2 pg (27.0-31.0); MEAN PLATELET VOLUME 11.1 fl (9.6-12.3); MONO # 0.7 10*3/uL (0.1-1.0); NEUT # 3.7 10*3/uL (2.3-7.9); NEUT % 73.3 % (47.0-73.0); PLATELET COUNT AUTOMATED 88 10*3/uL (130-400); RED BLOOD COUNT 2.27 10*6/uL (4.50-5.90); RED CELL DISTRI WIDTH 14.6 % (0-14.5); WHITE BLOOD COUNT 5.1 10*3/uL (4.8-10.8)
[2024-04-26] MEDS ORDERED: Ondansetron Hydrochloride 4 MG TAB PO PRN (03:45)
[2024-04-26 04:03] LABS: TOTAL PROTEIN 6.2 gm/dL (6.0-8.0)
[2024-04-26] MEDS ORDERED: Pantoprazole Sodium 40 MG TAB PO SCH (06:00)
[2024-04-26 08:00] VITALS: BP 147/77
[2024-04-26] MEDS ORDERED: Ertapenem Sodium 1 GM in SODIUM CHLORIDE 0.9% 50 ML IV SCH (10:00)
[2024-04-26] MEDS ORDERED: ALBUTEROL INH SCH (10:00)
[2024-04-26] MEDS ORDERED: **NF** (Ertapenem 1 GM) IV SCH (10:00)
[2024-04-26] MEDS ORDERED: BUDESONIDE INH SCH (10:00)
[2024-04-26] MEDS ORDERED: busPIRone Hydrochloride 15 MG TAB PO SCH (10:00)
[2024-04-26 10:21] LABS: POTASSIUM 5.8 mmol/L (3.4-5.1)
[2024-04-26] MEDS ORDERED: Menthol/Zinc Oxide 4 GM THIN T PRN (10:35)
[2024-04-26] MEDS ORDERED: SODIUM BICARBONATE 4.2% 5 ML VIAL ONE (11:00)
[2024-04-26] MEDS ORDERED: HEEL PROTECTOR DEVICE ONE (11:21)
[2024-04-26 12:00] VITALS: BP 157/63
[2024-04-26 16:00] VITALS: BP 164/73
[2024-04-26] MEDS ORDERED: ceFAZolin sodium 2 GM in SYRINGE INFUSION 20 ML IV SCH (16:00)
[2024-04-26 20:00] VITALS: BP 152/62
[2024-04-26] MEDS ORDERED: Tamsulosin Hydrochloride 0.4 MG CAP PO SCH (22:00)
[2024-04-26] MEDS ORDERED: ATORVASTATIN CALCIUM 10 MG TAB PO SCH (22:00)
[2024-04-26] MEDS ORDERED: Menthol/Zinc Oxide 4 GM THIN T SCH (22:00)
[2024-04-26] MEDS ORDERED: LATANOPROST 0.005% 2.5 ML BOTTLE OPH SCH (22:00)
[2024-04-27] VITALS: BP 144/74
[2024-04-27 06:45] LABS: BASO % 0.7 % (0.0-1.0); EOS # 0.3 10*3/uL (0.0-0.4); EOS % 5.2 % (1.0-4.0); HEMATOCRIT 21.6 % (42.0-52.0); LYMPH # 0.5 10*3/uL (1.3-4.4); LYMPH % 8.3 % (27.0-41.0); MEAN CELL VOLUME 98.6 fl (80.0-94.0); MEAN CORPUSCULAR HGB 32.4 pg (27.0-31.0); MEAN CORPUSCULAR HGB CONC 32.9 g/dl (33.0-37.0); MONO # 0.8 10*3/uL (0.1-1.0); MONO % 13.8 % (3.0-9.0); NEUT # 4.3 10*3/uL (2.3-7.9); NEUT % 71.7 % (47.0-73.0); PLATELET COUNT AUTOMATED 89 10*3/uL (130-400); RED BLOOD COUNT 2.19 10*6/uL (4.50-5.90); RED CELL DISTRI WIDTH 14.3 % (0-14.5)
[2024-04-27 07:17] LABS: FREE T4 0.83 ng/dl (0.89-1.76); POTASSIUM 5.3 mmol/L (3.4-5.1); TOTAL PROTEIN 5.8 gm/dL (6.0-8.0)
[2024-04-27] MEDS ORDERED: BUDESONIDE 0.5 MG AMP NEB PRN (07:35)
[2024-04-27] MEDS ORDERED: Albuterol Sulfate 2.5 MG/3 ML VIAL NEB PRN (07:35)
[2024-04-27 08:00] VITALS: BP 139/74
[2024-04-27] MEDS ORDERED: SODIUM CHLORIDE 0.9% 50 ML BAG IV ONE (09:53)
[2024-04-27] MEDS ORDERED: ceFAZolin sodium 1 GM VIAL IV ONE (09:53)
[2024-04-27] MEDS ORDERED: ASPIRIN ENTERIC COATED 81 MG TAB PO SCH (10:00)
[2024-04-27] MEDS ORDERED: ERTAPENEM SODIUM IV SCH (10:00)
[2024-04-27] MEDS ORDERED: INFUSION IV SCH (10:00)
[2024-04-27] MEDS ORDERED: SODIUM POLYSTYRENE SULFONATE 15 GM/60 ML BOT PO ONE (11:40)
[2024-04-27 12:00] VITALS: BP 145/71
[2024-04-27 16:00] VITALS: BP 154/71
[2024-04-27] MEDS ORDERED: FOAM BANDAGE 1 EACH BANDAGE T ONE (17:12)
[2024-04-27 20:00] VITALS: BP 161/78
[2024-04-28] VITALS: BP 165/76
[2024-04-28 06:38] LABS: BASO # 0.1 10*3/uL (0.0-0.1); BASO % 0.8 % (0.0-1.0); EOS # 0.4 10*3/uL (0.0-0.4); EOS % 6.3 % (1.0-4.0); HEMATOCRIT 24.3 % (42.0-52.0); LYMPH # 0.6 10*3/uL (1.3-4.4); LYMPH % 8.9 % (27.0-41.0); MEAN CORPUSCULAR HGB 32.3 pg (27.0-31.0); MEAN CORPUSCULAR HGB CONC 31.3 g/dl (33.0-37.0); MEAN PLATELET VOLUME 11.6 fl (9.6-12.3); MONO # 0.9 10*3/uL (0.1-1.0); MONO % 14.2 % (3.0-9.0); NEUT # 4.3 10*3/uL (2.3-7.9); NEUT % 69.5 % (47.0-73.0); PLATELET COUNT AUTOMATED 90 10*3/uL (130-400); RED BLOOD COUNT 2.35 10*6/uL (4.50-5.90); RED CELL DISTRI WIDTH 14.1 % (0-14.5); WHITE BLOOD COUNT 6.2 10*3/uL (4.8-10.8)
[2024-04-28 06:40] LABS: MEAN CELL VOLUME 103.4 fl (80.0-94.0)
[2024-04-28 06:50] LABS: POTASSIUM 5.3 mmol/L (3.4-5.1); TOTAL PROTEIN 6.1 gm/dL (6.0-8.0)
[2024-04-28] MEDS ORDERED: SODIUM POLYSTYRENE SULFONATE 15 GM/60 ML BOT PO ONE (07:40)
[2024-04-28 08:00] VITALS: BP 153/80
[2024-04-28] MEDS ORDERED: SODIUM BICARBONATE 325 MG TAB PO SCH (10:00)
[2024-04-28 12:00] VITALS: BP 148/71
[2024-04-28 16:00] VITALS: BP 142/67
[2024-04-28 20:00] VITALS: BP 159/79
[2024-04-29] VITALS: BP 145/71
[2024-04-29] MEDS ORDERED: FOAM BANDAGE 1 EACH BANDAGE T ONE (02:51)
[2024-04-29 05:52] LABS: ALKALINE PHOSPHATASE 350 U/L (46-116); BUN 98 mg/dl (9-23); CHLORIDE 109 mmol/L (98-107); POTASSIUM 5.1 mmol/L (3.4-5.1)
[2024-04-29 05:54] LABS: SGPT/ALT < 7 U/L (5-49)
[2024-04-29 06:28] LABS: BASO % 0.5 % (0.0-1.0); EOS # 0.3 10*3/uL (0.0-0.4); HEMATOCRIT 23.7 % (42.0-52.0); LYMPH # 0.5 10*3/uL (1.3-4.4); LYMPH % 8.2 % (27.0-41.0); MEAN CELL VOLUME 101.7 fl (80.0-94.0); MEAN CORPUSCULAR HGB 32.2 pg (27.0-31.0); MEAN CORPUSCULAR HGB CONC 31.6 g/dl (33.0-37.0); MEAN PLATELET VOLUME 11.7 fl (9.6-12.3); MONO # 0.8 10*3/uL (0.1-1.0); NEUT # 4.8 10*3/uL (2.3-7.9); PLATELET COUNT AUTOMATED 89 10*3/uL (130-400); RED BLOOD COUNT 2.33 10*6/uL (4.50-5.90); RED CELL DISTRI WIDTH 13.9 % (0-14.5); WHITE BLOOD COUNT 6.4 10*3/uL (4.8-10.8)
[2024-04-29 08:00] VITALS: BP 158/74
[2024-04-29 12:00] VITALS: BP 153/65
[2024-04-29 16:00] VITALS: BP 139/63
[2024-04-29] MEDS ORDERED: ERTAPENEM1 GM IV (16:08)
[2024-04-29] MEDS ORDERED: LASIX40 MG PO (16:19)
[2024-04-29] MEDS ORDERED: LOKELMA10 GM PO (16:50)
[2024-04-29 20:00] VITALS: BP 148/27
== END 2024-04-29 21:54 | DRG 640 ==
LOC: ED 20:16 → 4E 04-26 02:10 → EDHOLD 04-26 02:10 → 4E 04-26 03:32
PROVIDERS: Internal Medicine; Student in an Organized Health Care Education/Training Program; ADMIT Family Medicine; ATTEND Family Medicine
PROC: 0W9G3ZZ Drainage of Peritoneal Cavity, Percutaneous Approach (ICD-10-PCS; principal; 2024-04-26)
DX: E87.5 Hyperkalemia (principal); G93.41 Metabolic encephalopathy; N17.0 Acute kidney failure with tubular necrosis; N18.5 Chronic kidney disease, stage 5; R18.0 Malignant ascites; L03.116 Cellulitis of left lower limb; L03.115 Cellulitis of right lower limb; M86.8X7 Other osteomyelitis, ankle and foot; C22.0 Liver cell carcinoma; N40.0 Benign prostatic hyperplasia without lower urinary tract symptoms; I35.0 Nonrheumatic aortic (valve) stenosis; E11.69 Type 2 diabetes mellitus with other specified complication; E78.5 Hyperlipidemia, unspecified; D53.9 Nutritional anemia, unspecified; J44.9 Chronic obstructive pulmonary disease, unspecified; E11.22 Type 2 diabetes mellitus with diabetic chronic kidney disease; I12.9 Hypertensive chronic kidney disease with stage 1 through stage 4 chronic kidney disease, or unspecified chronic kidney disease; K74.60 Unspecified cirrhosis of liver; E11.42 Type 2 diabetes mellitus with diabetic polyneuropathy; E11.51 Type 2 diabetes mellitus with diabetic peripheral angiopathy without gangrene; F17.210 Nicotine dependence, cigarettes, uncomplicated; R74.01 Elevation of levels of liver transaminase levels; E11.65 Type 2 diabetes mellitus with hyperglycemia; D69.6 Thrombocytopenia, unspecified; D49.4 Neoplasm of unspecified behavior of bladder; F20.3 Undifferentiated schizophrenia; I71.40 Abdominal aortic aneurysm, without rupture, unspecified; R16.0 Hepatomegaly, not elsewhere classified; R16.1 Splenomegaly, not elsewhere classified; I77.6 Arteritis, unspecified; N49.2 Inflammatory disorders of scrotum; N40.1 Benign prostatic hyperplasia with lower urinary tract symptoms; S70.322A Blister (nonthermal), left thigh, initial encounter; Z71.6 Tobacco abuse counseling; Z79.899 Other long term (current) drug therapy; Z79.01 Long term (current) use of anticoagulants; Z79.2 Long term (current) use of antibiotics; Z90.49 Acquired absence of other specified parts of digestive tract; Z82.5 Family history of asthma and other chronic lower respiratory diseases; Z80.1 Family history of malignant neoplasm of trachea, bronchus and lung; Z82.49 Family history of ischemic heart disease and other diseases of the circulatory system; Z90.79 Acquired absence of other genital organ(s); X58.XXXA Exposure to other specified factors, initial encounter; Y93.89 Activity, other specified; Y92.89 Other specified places as the place of occurrence of the external cause; Y99.8 Other external cause status

== ENCOUNTER → 2024-06-27 | Outpatient (CLI) | payer MEDICARE ==
[~2024-06-27] MED LIST changes: +AVYCAZ 2.5 GRA2.5 GM IV; +LASIX40 MG PO; -LATANOPROST2.5 ML OP; +LATANOPROST2.5 ML OU; +LOKELMA10 GM PO; +OMEPRAZOLE40 MG PO; +RENVELA800 MG PO
== END | disposition home or self-care (01) ==
LOC: ORTHO 03:48
PROVIDERS: ATTEND Orthopaedic Surgery
DX: M16.11 Unilateral primary osteoarthritis, right hip (principal); M85.88 Other specified disorders of bone density and structure, other site; M84.451A Pathological fracture, right femur, initial encounter for fracture

== ENCOUNTER → 2024-06-28 | Outpatient (CLI) | payer MEDICARE | LOC: EDSTATUS 11:00 | PROVIDERS: ATTEND Internal Medicine | DX: R18.8 Other ascites (principal); K74.60 Unspecified cirrhosis of liver ==

== ENCOUNTER → 2024-06-30 | Outpatient (CLI) | payer MEDICARE | LOC: RAD 12:45 → EDSTATUS 13:00 | PROVIDERS: ATTEND Internal Medicine | DX: R18.8 Other ascites (principal); K74.60 Unspecified cirrhosis of liver ==

== ENCOUNTER → 2024-07-07 | Outpatient (CLI) | payer MEDICARE | LOC: EDSTATUS 11:00 | PROVIDERS: ATTEND Internal Medicine | DX: R18.8 Other ascites (principal); K74.60 Unspecified cirrhosis of liver ==

== ENCOUNTER → 2024-07-13 | Outpatient (CLI) | payer MEDICARE ==
[~2024-07-13] MED LIST changes: +SODIUM BICARBONATE 4.2% 5 ML VIAL ONE
== END | disposition home or self-care (01) ==
LOC: EDSTATUS 07-14 11:00
PROVIDERS: ATTEND Internal Medicine
DX: R18.8 Other ascites (principal); K74.60 Unspecified cirrhosis of liver

== ENCOUNTER → 2024-07-21 | Outpatient (CLI) | payer MEDICARE ==
[~2024-07-21] MED LIST changes: +CIPRO500 MG PO
[2024-07-21 12:13] LABS: ACT PARTIAL THROMBO TIME 37.9 SECONDS (20.0-32.1)
== END | disposition home or self-care (01) ==
LOC: EDSTATUS 11:00
PROVIDERS: Radiology Diagnostic Radiology; ATTEND Internal Medicine
DX: R18.8 Other ascites (principal); K74.60 Unspecified cirrhosis of liver

== ENCOUNTER 2024-07-25 08:46 | Emergency (ER) | payer MEDICARE ==
[~2024-07-25] VITALS: Ht 175.2 cm; Wt 71.2 kg
[~2024-07-25 08:46] MED LIST changes: -SODIUM BICARBONATE 4.2% 5 ML VIAL ONE
[2024-07-25 08:55] VITALS: BP 124/77
[2024-07-25 09:06] LABS: BASO % 0.4 % (0.0-1.0); EOS # 0.2 10*3/uL (0.0-0.4); EOS % 2.9 % (1.0-4.0); HEMATOCRIT 31.6 % (42.0-52.0); MEAN CELL VOLUME 96.9 fl (80.0-94.0); MEAN PLATELET VOLUME 10.9 fl (9.6-12.3); MONO # 0.6 10*3/uL (0.1-1.0); MONO % 8.7 % (3.0-9.0); NEUT # 5.8 10*3/uL (2.3-7.9); PLATELET COUNT AUTOMATED 102 10*3/uL (130-400); RED BLOOD COUNT 3.26 10*6/uL (4.50-5.90); RED CELL DISTRI WIDTH 16.5 % (0-14.5); WHITE BLOOD COUNT 7.2 10*3/uL (4.8-10.8)
[2024-07-25 09:20] LABS: POTASSIUM 3.8 mmol/L (3.4-5.1)
== END 2024-07-25 11:30 | disposition home or self-care (01) ==
LOC: ED 08:46
PROVIDERS: Internal Medicine
DX: R07.89 Other chest pain (principal); R06.02 Shortness of breath; F32.A Depression, unspecified; J44.9 Chronic obstructive pulmonary disease, unspecified; K21.9 Gastro-esophageal reflux disease without esophagitis; E11.40 Type 2 diabetes mellitus with diabetic neuropathy, unspecified; F17.200 Nicotine dependence, unspecified, uncomplicated; Z98.890 Other specified postprocedural states; Z90.49 Acquired absence of other specified parts of digestive tract

== ENCOUNTER → 2024-07-28 | Outpatient (CLI) | payer MEDICARE ==
[~2024-07-28] MED LIST changes: +SODIUM BICARBONATE 4.2% 5 ML VIAL ONE
== END | disposition home or self-care (01) ==
LOC: EDSTATUS 11:00
PROVIDERS: ATTEND Internal Medicine
DX: R18.8 Other ascites (principal); K74.60 Unspecified cirrhosis of liver

== ENCOUNTER → 2024-08-04 | Outpatient (CLI) | payer MEDICARE ==
[~2024-08-04] MED LIST changes: -SODIUM BICARBONATE 4.2% 5 ML VIAL ONE
== END | disposition home or self-care (01) ==
LOC: EDSTATUS 11:00
PROVIDERS: ATTEND Internal Medicine
DX: R18.8 Other ascites (principal); K74.60 Unspecified cirrhosis of liver

== ENCOUNTER → 2024-08-11 | Outpatient (CLI) | payer MEDICARE | END | disposition home or self-care (01) | LOC: EDSTATUS 11:00 | PROVIDERS: ATTEND Internal Medicine | DX: R18.8 Other ascites (principal); K74.60 Unspecified cirrhosis of liver ==

== ENCOUNTER → 2024-08-18 | Outpatient (CLI) | payer MEDICARE | END | disposition home or self-care (01) | LOC: EDSTATUS 11:00 | PROVIDERS: ATTEND Internal Medicine | DX: R18.8 Other ascites (principal); K74.60 Unspecified cirrhosis of liver ==

== ENCOUNTER → 2024-08-25 | Outpatient (CLI) | payer MEDICARE | END | disposition home or self-care (01) | LOC: EDSTATUS 11:00 | PROVIDERS: ATTEND Internal Medicine | DX: R18.8 Other ascites (principal); K74.69 Other cirrhosis of liver ==

== ENCOUNTER → 2024-09-01 | Outpatient (CLI) | payer MEDICARE ==
[2024-09-01 11:22] LABS: ACT PARTIAL THROMBO TIME 35.6 SECONDS (20.0-32.1)
== END | disposition home or self-care (01) ==
LOC: EDSTATUS 11:00
PROVIDERS: Radiology Diagnostic Radiology; ATTEND Internal Medicine
DX: R18.8 Other ascites (principal); K74.60 Unspecified cirrhosis of liver

== ENCOUNTER → 2024-09-08 | Outpatient (CLI) | payer MEDICARE ==
[~2024-09-08] MED LIST changes: +SODIUM BICARBONATE 4.2% 5 ML VIAL ONE
== END | disposition home or self-care (01) ==
LOC: EDSTATUS 11:00
PROVIDERS: ATTEND Internal Medicine
DX: R18.8 Other ascites (principal); K74.60 Unspecified cirrhosis of liver

== ENCOUNTER → 2024-09-13 | Outpatient (CLI) | payer MEDICARE | END | disposition home or self-care (01) | LOC: EDSTATUS 09-15 11:00 | PROVIDERS: ATTEND Internal Medicine | DX: R18.8 Other ascites (principal) ==

== ENCOUNTER → 2024-09-20 | Outpatient (CLI) | payer MEDICARE ==
[~2024-09-20] MED LIST changes: +ATORVASTATIN CA10 M1 PO; +BUSPIRONE15 MG PO
== END | disposition home or self-care (01) ==
LOC: EDSTATUS 09-22 11:00
PROVIDERS: ATTEND Internal Medicine
DX: R18.8 Other ascites (principal); K74.60 Unspecified cirrhosis of liver

== ENCOUNTER → 2024-10-13 | Day surgery (SDC) | payer MEDICARE ==
[~2024-10-13] MED LIST changes: +ALDACTONE25 MG PO; +CEPHALEXIN250 MG PO; +LACTULOSE10 GM/151 PO
== END | disposition home or self-care (01) ==
PROVIDERS: ATTEND Internal Medicine
DX: R18.8 Other ascites (principal); K74.60 Unspecified cirrhosis of liver

== ENCOUNTER → 2024-10-25 | Day surgery (SDC) | payer MEDICARE ==
[~2024-10-25] MED LIST changes: +OXYCODONE HCL5 MG PO; -SODIUM BICARBONATE 4.2% 5 ML VIAL ONE
== END ==
PROVIDERS: ATTEND Internal Medicine
DX: R18.8 Other ascites (principal); K74.60 Unspecified cirrhosis of liver

== ENCOUNTER → 2024-11-01 | Outpatient (CLI) | payer MEDICARE ==
[~2024-11-01] MED LIST changes: +SODIUM BICARBONATE 4.2% 5 ML VIAL ONE
[2024-11-01 11:02] LABS: ACT PARTIAL THROMBO TIME 34.2 SECONDS (20.0-32.1)
== END | disposition home or self-care (01) ==
LOC: LAB 07:31 → EDSTATUS 11:00
PROVIDERS: Radiology Diagnostic Radiology; ATTEND Internal Medicine
DX: R18.8 Other ascites (principal); K74.60 Unspecified cirrhosis of liver

== ENCOUNTER → 2024-11-08 | Day surgery (SDC) | payer MEDICARE ==
[~2024-11-08] MED LIST changes: -SODIUM BICARBONATE 4.2% 5 ML VIAL ONE
== END | disposition home or self-care (01) ==
PROVIDERS: ATTEND Internal Medicine
DX: R18.8 Other ascites (principal); K74.60 Unspecified cirrhosis of liver

== ENCOUNTER → 2024-11-15 | Outpatient (CLI) | payer MEDICARE | END | disposition home or self-care (01) | LOC: EDSTATUS 11:00 | PROVIDERS: ATTEND Internal Medicine | DX: R18.8 Other ascites (principal); K74.60 Unspecified cirrhosis of liver ==

== ENCOUNTER → 2024-11-22 | Outpatient (CLI) | payer MEDICARE | END | disposition home or self-care (01) | LOC: EDSTATUS 11:00 | PROVIDERS: ATTEND Internal Medicine | DX: R18.8 Other ascites (principal); K74.60 Unspecified cirrhosis of liver ==

== ENCOUNTER → 2024-11-30 | Outpatient (CLI) | payer MEDICARE | END | disposition home or self-care (01) | LOC: EDSTATUS 12-01 11:00 | PROVIDERS: ATTEND Internal Medicine | DX: R18.8 Other ascites (principal); K74.60 Unspecified cirrhosis of liver ==

== ENCOUNTER → 2024-12-08 | Outpatient (CLI) | payer MEDICARE ==
[2024-12-08 11:48] LABS: ACT PARTIAL THROMBO TIME 33.3 SECONDS (20.0-32.1)
== END | disposition home or self-care (01) ==
LOC: RAD 11:00 → EDSTATUS 11:00
PROVIDERS: ATTEND Internal Medicine
DX: R18.8 Other ascites (principal); K74.60 Unspecified cirrhosis of liver

== ENCOUNTER → 2024-12-15 | Outpatient (CLI) | payer MEDICARE ==
[~2024-12-15] MED LIST changes: +ALBUMIN 25% 100 ML IV ONE; +SODIUM BICARBONATE 4.2% 5 ML VIAL ONE
[2024-12-15 13:28] VITALS: BP 115/51
== END | disposition home or self-care (01) ==
LOC: EDSTATUS 11:00
PROVIDERS: ATTEND Internal Medicine
DX: R18.8 Other ascites (principal); K74.60 Unspecified cirrhosis of liver; E11.9 Type 2 diabetes mellitus without complications; I10 Essential (primary) hypertension; K21.9 Gastro-esophageal reflux disease without esophagitis; J44.9 Chronic obstructive pulmonary disease, unspecified; F32.A Depression, unspecified; F17.210 Nicotine dependence, cigarettes, uncomplicated; Z98.890 Other specified postprocedural states; Z79.899 Other long term (current) drug therapy; Z82.49 Family history of ischemic heart disease and other diseases of the circulatory system

== ENCOUNTER → 2024-12-22 | Outpatient (CLI) | payer MEDICARE ==
[~2024-12-22] MED LIST changes: -ALBUMIN 25% 100 ML IV ONE
== END | disposition home or self-care (01) ==
LOC: EDSTATUS 11:00
PROVIDERS: ATTEND Internal Medicine
DX: R18.8 Other ascites (principal); K74.60 Unspecified cirrhosis of liver

== ENCOUNTER → 2024-12-29 | Outpatient (CLI) | payer MEDICARE ==
[~2024-12-29] MED LIST changes: +ALBUMIN 25% 100 ML IV SCH; -SODIUM BICARBONATE 4.2% 5 ML VIAL ONE
[2024-12-29 12:39] VITALS: BP 97/57
== END | disposition home or self-care (01) ==
LOC: EDSTATUS 11:00
PROVIDERS: ATTEND Internal Medicine
DX: R18.8 Other ascites (principal); K74.60 Unspecified cirrhosis of liver; E11.40 Type 2 diabetes mellitus with diabetic neuropathy, unspecified; I10 Essential (primary) hypertension; F32.A Depression, unspecified; J44.9 Chronic obstructive pulmonary disease, unspecified; Z85.51 Personal history of malignant neoplasm of bladder; K21.9 Gastro-esophageal reflux disease without esophagitis; F20.0 Paranoid schizophrenia; Z85.05 Personal history of malignant neoplasm of liver

== ENCOUNTER → 2025-01-05 | Outpatient (CLI) | payer MEDICARE ==
[~2025-01-05] MED LIST changes: -ALBUMIN 25% 100 ML IV SCH; +ALBUMIN 25% 50 ML IV ONE
[2025-01-05 11:33] LABS: ACT PARTIAL THROMBO TIME 31.9 SECONDS (20.0-32.1)
[2025-01-05 13:05] VITALS: BP 93/53
== END | disposition home or self-care (01) ==
LOC: EDSTATUS 11:00
PROVIDERS: Radiology Diagnostic Radiology; ATTEND Internal Medicine
DX: R18.8 Other ascites (principal); K74.60 Unspecified cirrhosis of liver; F32.A Depression, unspecified; I10 Essential (primary) hypertension; J44.9 Chronic obstructive pulmonary disease, unspecified; K21.9 Gastro-esophageal reflux disease without esophagitis; E11.51 Type 2 diabetes mellitus with diabetic peripheral angiopathy without gangrene; E11.40 Type 2 diabetes mellitus with diabetic neuropathy, unspecified; F20.0 Paranoid schizophrenia; F17.210 Nicotine dependence, cigarettes, uncomplicated

== ENCOUNTER → 2025-01-12 | Outpatient (CLI) | payer MEDICARE ==
[2025-01-12 13:11] VITALS: BP 145/61
== END | disposition home or self-care (01) ==
LOC: EDSTATUS 11:00
PROVIDERS: ATTEND Internal Medicine
DX: R18.8 Other ascites (principal); K74.69 Other cirrhosis of liver

== ENCOUNTER → 2025-01-24 | Outpatient (CLI) | payer MEDICARE ==
[~2025-01-24] MED LIST changes: +ALBUMIN 25% 100 ML IV ONE; -ALBUMIN 25% 50 ML IV ONE; +SODIUM BICARBONATE 4.2% 5 ML VIAL ONE; +VIBRAMYCIN100 MG PO
== END | disposition home or self-care (01) ==
LOC: EDSTATUS 01-26 11:00
PROVIDERS: ATTEND Internal Medicine
DX: R18.8 Other ascites (principal); E77.8 Other disorders of glycoprotein metabolism; K74.60 Unspecified cirrhosis of liver

== ENCOUNTER 2025-01-30 17:40 | Emergency (ER) | payer MEDICARE ==
[~2025-01-30] VITALS: Ht 175.2 cm; Wt 71.2 kg
[~2025-01-30 17:40] MED LIST changes: -ALBUMIN 25% 100 ML IV ONE; -SODIUM BICARBONATE 4.2% 5 ML VIAL ONE; -VIBRAMYCIN100 MG PO
[2025-01-30 19:23] VITALS: BP 95/62
[2025-01-30 19:27] LABS: BASO # 0.0 10*3/uL (0.0-0.1); BASO % 0.8 % (0.0-1.0); EOS # 0.1 10*3/uL (0.0-0.4); EOS % 2.2 % (1.0-4.0); MEAN CELL VOLUME 100.3 fl (80.0-94.0); MEAN CORPUSCULAR HGB 31.7 pg (27.0-31.0); MEAN PLATELET VOLUME 11.7 fl (9.6-12.3); MONO # 0.7 10*3/uL (0.1-1.0); MONO % 13.4 % (3.0-9.0); NEUT # 3.8 10*3/uL (2.3-7.9); NEUT % 74.0 % (47.0-73.0); NUCLEATED RED BLOOD CELL 0.0 % (0.0-0.0); NUCLEATED RED BLOOD CELL 0.0 10*3/uL (0.0-0.0); PLATELET COUNT AUTOMATED 77 10*3/uL (130-400); RED CELL DISTRI WIDTH 16.8 % (0-14.5)
[2025-01-30 19:48] LABS: BUN 24.0 mg/dl (9-23)
[2025-01-30] MEDS ORDERED: Acetaminophen/Oxycodone 5 MG/325 MG TABLET PO ONE (21:50)
[2025-01-30] MEDS ORDERED: VIBRAMYCIN100 MG PO (23:51)
== END 2025-01-31 00:19 | disposition home or self-care (01) ==
LOC: ED 17:40
PROVIDERS: Nurse Practitioner Family
DX: L03.116 Cellulitis of left lower limb (principal); L03.115 Cellulitis of right lower limb; L98.499 Non-pressure chronic ulcer of skin of other sites with unspecified severity; I10 Essential (primary) hypertension; J44.9 Chronic obstructive pulmonary disease, unspecified; E11.9 Type 2 diabetes mellitus without complications; F32.A Depression, unspecified; I25.10 Atherosclerotic heart disease of native coronary artery without angina pectoris; F17.200 Nicotine dependence, unspecified, uncomplicated; Z79.82 Long term (current) use of aspirin; Z79.899 Other long term (current) drug therapy; Z90.49 Acquired absence of other specified parts of digestive tract; Z98.890 Other specified postprocedural states

== ENCOUNTER → 2025-02-02 | Outpatient (CLI) | payer MEDICARE ==
[~2025-02-02] MED LIST changes: +ALBUMIN 25% 100 ML IV ONE; +SODIUM BICARBONATE 4.2% 5 ML VIAL ONE; +VIBRAMYCIN100 MG PO
[2025-02-02 12:33] VITALS: BP 111/59
[2025-02-02 13:16] VITALS: BP 113/68
== END | disposition home or self-care (01) ==
LOC: EDSTATUS 11:00
PROVIDERS: ATTEND Internal Medicine
DX: R18.8 Other ascites (principal)

== ENCOUNTER → 2025-02-09 | Outpatient (CLI) | payer MEDICARE ==
[2025-02-09 10:56] LABS: ACT PARTIAL THROMBO TIME 39.3 SECONDS (20.0-32.1)
[2025-02-09 12:47] VITALS: BP 117/61
== END | disposition home or self-care (01) ==
LOC: LAB 00:25 → EDSTATUS 11:00
PROVIDERS: Radiology Diagnostic Radiology; ATTEND Internal Medicine
DX: R18.8 Other ascites (principal)

== ENCOUNTER 2025-02-11 15:07 | Emergency (ER) | payer MEDICARE ==
[~2025-02-11] VITALS: Ht 175.2 cm; Wt 67.6 kg
[~2025-02-11 15:07] MED LIST changes: -ALBUMIN 25% 100 ML IV ONE; -SODIUM BICARBONATE 4.2% 5 ML VIAL ONE
[2025-02-11 15:25] VITALS: BP 102/66
[2025-02-11 16:57] LABS: BASO # 0.0 10*3/uL (0.0-0.1); BASO % 0.6 % (0.0-1.0); EOS # 0.0 10*3/uL (0.0-0.4); EOS % 0.6 % (1.0-4.0); MEAN CELL VOLUME 97.5 fl (80.0-94.0); MEAN CORPUSCULAR HGB 31.3 pg (27.0-31.0); MEAN PLATELET VOLUME 11.9 fl (9.6-12.3); MONO # 0.9 10*3/uL (0.1-1.0); MONO % 12.6 % (3.0-9.0); NEUT # 5.3 10*3/uL (2.3-7.9); NEUT % 79.4 % (47.0-73.0); NUCLEATED RED BLOOD CELL 0.0 % (0.0-0.0); NUCLEATED RED BLOOD CELL 0.0 10*3/uL (0.0-0.0); PLATELET COUNT AUTOMATED 65 10*3/uL (130-400); RED CELL DISTRI WIDTH 16.5 % (0-14.5)
[2025-02-11 16:57] LABS: BILIRUBIN 1+ (Negative); BLOOD 3+ (Negative); CLARITY Turbid (Clear); COLOR Orange (Yellow); KETONE Negative (Negative); LEUKO ESTERASE 3+ (Negative); NITRITE Negative (Negative); PH 5.0 (4.5-8.0); SPECIFIC GRAVITY 1.020 (1.001-1.030); UROBILINOGEN 0.2 E.U./dl (0.0-1.0)
[2025-02-11 17:05] LABS: ACT PARTIAL THROMBO TIME 38.5 SECONDS (20.0-32.1)
[2025-02-11 17:23] LABS: BUN 33.0 mg/dl (9-23); SGPT/ALT 65.0 U/L (5-49)
[2025-02-11 17:36] LABS: BACTERIA 3+; RBC 51-100 rbc/hpf (0-2); WBC 41-50 wbc/hpf (0-5)
== END 2025-02-11 20:16 | disposition short-term general hospital (02) ==
LOC: ED 15:07
PROVIDERS: Internal Medicine
DX: I21.4 Non-ST elevation (NSTEMI) myocardial infarction (principal); K74.60 Unspecified cirrhosis of liver; N39.0 Urinary tract infection, site not specified; I12.0 Hypertensive chronic kidney disease with stage 5 chronic kidney disease or end stage renal disease; E11.22 Type 2 diabetes mellitus with diabetic chronic kidney disease; N18.6 End stage renal disease; F17.200 Nicotine dependence, unspecified, uncomplicated; Z79.899 Other long term (current) drug therapy; Z98.890 Other specified postprocedural states; Z90.49 Acquired absence of other specified parts of digestive tract